=== PATIENT | male | born 1930 | race Caucasian/White ===

== ENCOUNTER 2016-08-05 15:22 | Inpatient (IN) ==
--- NOTE | 2016-08-05 16:51 | Diag Imaging Result Doc PS360 ---
EXAM: CHEST-PORTABLE HISTORY: cough fever TECHNIQUE: Erect AP portable at 1640 COMMENT: There are fibrotic opacities throughout to the right lung and the left base which have not changed significantly in appearance since 02/22/2015. There are sternotomy wires. Some apical pleural fibrosis is present on the left. IMPRESSION: Pulmonary fibrosis. Electronically signed by Fidencio Joseph 08/05/2016 4:49 PM
[2016-08-05 16:53] LABS: BASO% 0.3 % (0.0-0.8); EOS# 0.11 X1000 (0.0-0.7); EOS% 1.1 % (0.0-10.0); HEMOGLOBIN 16.2 g/dL (14.0-18.0); IMM GRAN# 0.02 X1000 (0.0-0.04); IMM GRAN% 0.2 % (0.0-0.5); LYMPH# 0.77 X1000 (1.2-3.4); LYMPH% 7.6 % (20.5-51.1); MANUAL DIFF NEEDED? NO; MCH 29.3 PG (27-31); MCHC 33.1 g/dL (33-37); MCV 88.8 FL (81-99); MONO# 0.36 X1000 (0.11-0.59); MONO% 3.5 % (1.7-9.3); MPV 9.6 FL (7.4-10.4); NEUT% 87.3 % (42.2-75.2); PLT 150 X1000 (130-400); RBC 5.52 XMIL (4.7-6.1)
[2016-08-05 16:57] LABS: PTT 37.7 Seconds (22.0-36.0)
[2016-08-05 16:59] LABS: INR 2.26
[2016-08-05] MEDS ORDERED: DUONEB (A & A) INH ONE (17:14)
[2016-08-05] MEDS ORDERED: SOLU-MEDROL IV ONE (17:14)
[2016-08-05 17:15] LABS: AGAP 12; ALBUMIN 4.3 g/dL (3.5-5.0); ALKALINE PHOSPHATASE 96 U/L (32-122); BUN 18 mg/dL (8-22); CALCIUM 9.5 mg/dL (8.8-10.2); CHLORIDE 101 mmol/L (98-107); CK PROFILE 50 U/L (24-204); COSMO 283; GOT 21 U/L (10-34); GPT 14 U/L (10-44); MAGNESIUM 1.8 mg/dL (1.5-2.7); POTASSIUM 4.3 mmol/L (3.5-5.1); SODIUM 141 mmol/L (136-145); TCO2 28 mmol/L (25-35); TOTAL BILIRUBIN 0.82 mg/dL (0.20-1.00); TOTAL PROTEIN 7.1 g/dL (6.3-8.3)
[2016-08-05] MEDS ORDERED: LEVAQUIN 750 MG/D5W 750 MG/150 ML IVPB IV ONE (17:59)
[2016-08-05] MEDS ORDERED: TYLENOL PO ONE (18:21)
[2016-08-05] MEDS ORDERED: NS 1,000 ML IV ONE (18:21)
--- NOTE | 2016-08-05 18:28 | PROVIDER DOCUMENTATION ---
This chart was entered by Axel Holliday Scribe, acting as scribe for Jennifer Echeverria MD. HPI-General Adult - General Chief Complaint: Shortness of Breath Stated Complaint: SOB 2hrs w/fever Time Seen by Provider: 08/05/16 16:17 Source: patient, family Allergies/Adverse Reactions: Patient Allergies Allergy/AdvReac Type Severity Reaction Status Date / Time No Known Allergies Allergy Verified 08/05/16 16:34 Home Medications: Home Medication List Medication Instructions Recorded Confirmed Last Taken Type Albuterol Sulfate [Proventil Hfa] 6.7 gm IH DIRECTED PRN PRN 01/19/1308/05/16 History Buspirone [Buspar] 10 mg PO TID 01/19/13 08/05/16 08/05/16 History Gabapentin [Neurontin] 400 mg PO BID 01/19/13 08/05/16 08/05/16 History Ropinirole HCl 4 mg PO HS 01/19/13 08/05/16 08/04/16 History Budesonide/Formoterol Inhaler 2 puff INH RTBID 08/27/13 08/05/16 08/05/16 History [Symbicort 160/4.5 Microgm Inhaler] Lorazepam [Ativan] 0.5 mg PO HS 11/26/14 08/05/16 08/05/16 History Montelukast [Singulair] 10 mg PO QHS 11/26/14 08/05/16 08/04/16 History Rosuvastatin Calcium [Crestor] 20 mg PO QAM 11/26/14 08/05/16 08/05/16 History Calcium Carbonate [Tums Calcium 500 mg PO BID 01/21/15 08/05/16 08/05/16 History For Life] Cholecalciferol (Vitamin D3) 1,000 units PO BID 01/21/15 08/05/16 08/05/16 History [Vitamin D3] Albuterol [Albuterol Neb] 2.5 mg INH [id number] 02/07/15 08/05/16 08/05/16 History Omeprazole 20 mg PO BID 02/07/15 08/05/16 08/05/16 History Warfarin [Coumadin] 2 mg PO DIRECTED 02/07/15 08/05/16 08/05/16 History - History of Present Illness -Gen Adult Nature of Presenting Problems: 86 yo M presents to the ER with complaints of fever and chills x a few hours. PT has had a productive cough x 1 week and is also SOB. Quality of Pain: reports: none Severity: reports: mild Onset/Duration: reports: 2 days ago Timing: reports: still present Associated Symptoms: reports: cough, fever/chills, shortness of breath Review of Systems - Adult - REVIEW OF SYSTEMS - ADULT Constitutional: reports: chills, fever Cardiovascular: denies: chest pain, palpitations Respiratory: reports: cough, shortness of breath Gastrointestinal: denies: abdominal pain, nausea, vomiting Musculoskeletal: denies: back pain, neck pain Past History - Adult - PAST MEDICAL HISTORY-ADULT Review of Records: reports: Old Records Reviewed, Nursing Assessment Review, Medications Reviewed, Social history reviewed & non-contributory. Major Childhood Illnesses: reports: denies history Cardiovascular: reports: CAD, HTN, heart valve problem, hyperlipidemia, [place] ( with aortic aneurysm) Respiratory: reports: COPD Gastrointestinal: reports: GERD, other (rectal mass (no surgery til aneurysm repair); C-DIFF) Obstetrical/Gynecological: reports: denies history Genitourinary: reports: denies history Musculoskeletal: reports: denies history Neurological: reports: denies history Psychiatric: reports: anxiety Endocrine/Immune: reports: denies history Other Conditions: reports: denies history - PRIOR SURGERIES/PROCEDURES Surgical/Procedure History: reports: recent surgery, bowel surgery, other ( cataract removal, mechanical valve placement, partial removal of rectal mass, colon) - PRIOR HOSPITALIZATIONS Prior Hospitalizations: reports: for other non-related - IMMUNIZATION STATUS Childhood Immunizations: See Nurse Assessment Flu Vaccine: See Nurse Assessment - FAMILY HISTORY Family History: reviewed, not pertinent Physical Exam-General - PHYSICAL EXAM-ADULT Initial Vital Signs Reviewed: Yes - CONSTITUTIONAL General Appearance: appears well, alert, no apparent distress - RESPIRATORY Respiratory: chest non-tender, normal breath sounds, wheezing - CARDIOVASCULAR Cardiovascular: normal peripheral pulses, tachycardia - GASTROINTESTINAL (ABDOMEN) Abdominal Exam: normal bowel sounds, non tender, soft - MUSCULOSKELETAL Extremity: normal range of motion, non-tender, normal gait - SKIN Integumentary: normal color, normal turgor, warm/dry Progress - PLAN OF CARE/RESULTS Progress/Plan/Lab Results: Vital Signs - 8 hr 08/05/16 16:15 Temperature 102.3 F H Pulse Rate 105 H Respiratory Rate 22 O2 Sat by Pulse Oximetry 95 Orders Category Date Time Status Cardiac Monitoring DIRECTED Care 08/05/16 16:30 Active Saline Loc NOW Care 08/05/16 16:30 Active CHEST-2 VIEWS [RAD] Stat Exams 08/05/16 16:30 Ordered CBC WITH ELECTRONIC DIFF [HEME] Stat Lab 08/05/16 16:34 Ordered CK PROFILE [SP CHEM] Stat Lab 08/05/16 16:34 Ordered COMPREHENSIVE METABOLIC PANEL [CHEM] Stat Lab 08/05/16 16:34 Ordered MAGNESIUM [CHEM] Stat Lab 08/05/16 16:34 Ordered PRO B-NATRIURETIC PEPTIDE Stat Lab 08/05/16 16:34 Ordered PROTIME WITH INR [COAG] Stat Lab 08/05/16 16:34 Ordered PTT [COAG] Stat Lab 08/05/16 16:34 Ordered TROPONIN T Stat Lab 08/05/16 16:34 Ordered EKG [EKG] Stat Ther 08/05/16 16:30 Ordered Result Diagrams: 08/05/16 16:18 08/05/16 16:18 - XRAY 1 XRAY Study: Chest Impression: See EMR Report - CONSULTS/PCP/HOSPITALIST Notification #1 *Consult/PCP/Hospitalist*: DR Rivers Time Discussed: 18:22 Consult Disposition: Admit Departure - Departure Date of Disposition Decision: 08/05/16 Time of Disposition Decision: 18:22 DIAGNOSIS: Hypoxia, Pulmonary fibrosis Pneumonia Qualifiers: Pneumonia type: due to unspecified organism Laterality: unspecified laterality Lung location: unspecified part of lung Qualified Code(s): J18.9 - Pneumonia, unspecified organism Disposition: ADMITTED INPATIENT 09 Certified Medical Emergency: Emergent Condition: Fair Referrals and Follow-Ups: None,PCP [Primary Care Provider] - - Critical Care Note This patient required my direct & personal management of CC.: No Comments: A 86 y/o M who presented with SIRS positive CXR did not show acute PNA but clinically he had cough fever hypoxia, started him on ABX and needs further evlaution with CT chest This chart was documented by the indicated scribe, (Axel Holliday Scribe) and accurately reflects the services I performed and decisions made by me, Jennifer Echeverria MD, as attested by the provider's signature.
[2016-08-05 19:24] LABS: URINE MICRO REVIEW NEEDED? NO; URINE SOURCE VOIDED
[2016-08-05 19:26] LABS: BILIRUBIN URINE NEGATIVE (NEGATIVE); BLOOD URINE TRACE (NEGATIVE); COLOR YELLOW; GLUCOSE URINE NEGATIVE (NEGATIVE); LEUKOCYTES URINE SMALL (NEGATIVE); NITRITE URINE NEGATIVE (NEGATIVE); PH URINE 5.5; PROTEIN URINE NEGATIVE (NEGATIVE); SP GRAVITY URINE 1.015; TURBIDITY URINE CLEAR (CLEAR); UR EPITHELIAL CELLS <10 /HPF (<10); URINE BACTERIA 4+ /HPF; URINE RBC <10 /HPF (<10); UROBILINOGEN URINE NORMAL (NORMAL)
[2016-08-05] MEDS ORDERED: TUMS EXTRA STRENGTH PO SCH (21:12)
[2016-08-05] MEDS ORDERED: VENTOLIN HFA INH PRN (21:12)
--- NOTE | 2016-08-05 21:27 | HISTORY AND PHYSICAL ---
PRIMARY CARE PROVIDER: [facility]. CHIEF COMPLAINT: Cough and chills. HISTORY OF PRESENT ILLNESS: Mr. Soni is an 86-year-old male. He is very pleasant and is alert and oriented x4 during interview. He states that his niece called the ambulance today related to him having a high fever. More specifically he just said "I was freezing to ." However on arrival to the emergency room, he was noted to have a temperature of a 103.1 degrees. A chest x-ray was obtained. The patient appears to have fibrotic lung disease. He was a chronic smoker for many years. I believe he quit smoking in 2011. He was a heavy alcohol drinker until 2011 drinking 1 to 2/5 of alcohol he noted daily. On the right lower lobe there was an area of concern for a fairly dense looking consolidation that was questionable for a possible aspiration type pneumonia. The patient also has had aortic valve replacement and takes Coumadin for chronic anticoagulation. His INR was noted as being 2.26 so he is therapeutic. Other laboratory data was grossly normal in the ER. We did note that the patient was leukocyte esterase positive with 4+ bacteria in his urine so he has a questionable urinary tract infection which could be the source of infection causing him to have a febrile illness. At any rate, the patient's oxygen saturation in the emergency room remains around 91% on 2 L nasal cannula. He will be admitted to the medical floor for further evaluation and treatment. PAST MEDICAL HISTORY: 1. Abdominal aortic aneurysm with subsequent repair. 2. Coronary artery disease status post aortic valve replacement. 3. Hypertension with no current treatment. 4. Hyperlipidemia. 5. COPD. The patient was a heavy smoker until 2011 when he quit. 6. Colon cancer with subsequent colectomy and chronic ostomy. 7. GERD. 8. C. difficile. 9. Anxiety. PREVIOUS SURGICAL HISTORY: 1. Mechanical aortic valve replacement. 2. Abdominal aortic aneurysm repair. 3. Rectal cancer resection with complete colectomy and colostomy placement. 4. Cataract surgery. FAMILY HISTORY: Mother had stomach cancer. Otherwise the patient stated that he could not remember his mother or father that well. SOCIAL HISTORY: The patient lives alone. He quit smoking cigarettes in 2011. He also stopped drinking alcohol in 2011. He was both a heavy smoker for roughly 68 years and used alcohol fairly heavily after he retired from the . He denies illicit drug use or abuse. ALLERGIES: No known drug allergies. HOME MEDICATIONS: 1. BuSpar 10 mg p.o. t.i.d. 2. Proventil 6.7 g inhalation p.r.n. 3. Ropinirole 4 mg p.o. at bedtime. 4. Neurontin 400 mg p.o. b.i.d. 5. Symbicort 160/4.5 two puff inhalation b.i.d. 6. Crestor 20 mg p.o. daily. 7. Singular 10 mg p.o. at bedtime. 8. Lorazepam 0.5 mg p.o. at bedtime. 9. Calcium carbonate 500 mg p.o. b.i.d. 10. Vitamin D3 1000 units p.o. b.i.d. 11. Albuterol 2.5 mg inhalation 4 times a day. 12. Omeprazole 20 mg p.o. b.i.d. 13. Warfarin 2 mg p.o. at bedtime. REVIEW OF SYSTEMS: A 14 point review of systems conducted with the patient. Pertinent positives listed above in the HPI. All other systems were reviewed and found to be negative. PHYSICAL EXAMINATION: VITAL SIGNS: Temperature 103.1 degrees, pulse 112, respirations 30, blood pressure 140/69, oxygen saturation 91% on 2-3 L nasal cannula. GENERAL: Very pleasant 86-year-old male appears chronically ill lying in the ER stretcher in no acute distress. Answers all questions appropriately. HEENT: Head is atraumatic, normocephalic. Pupils are equal, round, reactive to light. Extraocular eye movement intact. Sclerae is anicteric. Conjunctivae is pink. Hearing aids noted in patient's ears bilaterally. Oral mucosa was dry and tacky. NECK: Was supple. No JVD. No hepatojugular reflex noted. No carotid bruit. Trachea was midline. CARDIAC: S1-S2 appreciated, 2/6 systolic ejection murmur noted heard at the aorta. Patient had valve replacement. No gallops, no rubs. Regular rhythm. Sinus tachycardia noted on monitor. LUNGS: Decreased bilaterally. Symmetrical rise and fall with respiration. No rhonchi, no rales. No crepitations. CHEST: Midline scar noted from old aortic valve replacement. ABDOMEN: Soft, nondistended, nontender. Bowel sounds present in all 4 quadrants. Normoactive. No pulsatile mass. No organomegaly. Left sided ostomy noted. Stoma showed no signs of infection. No erythema or overt signs of infection. EXTREMITIES: No clubbing, cyanosis, or edema. Left lower extremity warm to touch. Right lower extremity mildly cool to touch. Bilateral color change noted likely related to venous stasis, 1+ pedal pulse bilaterally. Left great toe noted to have previous ingrown toenail which was removed and appears to be healing. NEUROLOGICAL: Patient is alert and oriented x3. Cranial nerves 2-12 appear to be grossly intact. PSYCHOLOGICAL: Somewhat flat aspect however patient is very pleasant. This likely could be related to acute illness. DIAGNOSTIC DATA: Chest x-ray shows what appears to be fibrotic lung disease throughout the lung gomes. A questionable right lower lobe infiltrate. LABORATORY DATA: CBC within normal limits. PT 25.0, INR 2.26, PTT 37.7. Chemistry panel within normal limits. ProBNP 660. Urine. Leukocyte esterase positive, 10-20 WBCs and 4+ bacteria. ASSESSMENT AND PLAN: 1. Possible right lower lobe pneumonia with fever. Patient has a history of gastroesophageal reflux disease, was a heavy drinker for so many years. Will treat for possible aspiration pneumonia at this time and cover with Zosyn 3.375 IV q.6 hours. He did receive a dose of Levaquin 750 IV in the emergency room. Tylenol 1 g IV q.6 hours not to exceed 4 g daily for fever. 2. Chronic obstructive pulmonary disease without exacerbation. We will continue patient's long- acting bronchodilators. Will give DuoNeb q.6 hours. The patient did not have wheezing. Will not cover with systemic steroids at this time. He did receive a dose of Solu-Medrol 125 mg IV 1 time in the emergency room. 3. Questionable urinary tract infection. The patient was leukocyte esterase positive with 4+ bacteria. This will be covered with the Zosyn. 4. Hyperlipidemia. Continue statin. Check lipid profile. 5. Hypertension. The patient is normotensive at this time with a systolic blood pressure around 140. His baseline goal is unknown. He is not on oral antihypertensives at home. Will not start antihypertensive agents at this time but will monitor his blood pressure closely. 6. Gastroesophageal reflux disease. Will continue Protonix 20 mg b.i.d.. 7. Chronic diastolic heart failure aware. Will give gentle fluid hydration at 85 mL an hour. 8. Anxiety. Continue BuSpar and Ativan. 9. Chronic anticoagulation secondary to mechanical aortic valve. Continue patient's Coumadin, INR daily. Order has been placed for nursing to please evaluate INR before giving the dose of Coumadin at 1600. Further recommendations per patient's clinical course. Dictated by MANUEL Parisi for Jay Lemon MD cc: MANUEL Parisi MD [facility]
[2016-08-05 21:39] LABS: HDL 41 mg/dL (35-55); LDL 81 mg/dL; TRIGLYCERIDES 100 mg/dL (39-160); VLDL 20 mg/dL
[2016-08-05] MEDS: DUONEB (A & A) INH SCH (22:00)
[2016-08-05] MEDS: ZOSYN 3.375 GM/NS 3.375 GM/50 ML IVPB IV SCH (23:02)
[2016-08-05] MEDS: NS 1,000 ML IV SCH (23:03)
[2016-08-05] MEDS: ATIVAN PO SCH (23:06)
[2016-08-05] MEDS: PRILOSEC PO SCH (23:07)
[2016-08-05 23:37] LABS: URINE MICRO REVIEW NEEDED? NO; URINE SOURCE CATH
[2016-08-05 23:40] LABS: BILIRUBIN URINE NEGATIVE (NEGATIVE); BLOOD URINE SMALL (NEGATIVE); COLOR YELLOW; GLUCOSE URINE 70 mg/dL (NEGATIVE); LEUKOCYTES URINE MODERATE (NEGATIVE); NITRITE URINE POSITIVE (NEGATIVE); PH URINE 5.5; PROTEIN URINE NEGATIVE (NEGATIVE); TURBIDITY URINE CLEAR (CLEAR); UROBILINOGEN URINE NORMAL (NORMAL)
[2016-08-05] MEDS: NEURONTIN PO SCH (23:40)
[2016-08-05 23:41] LABS: UR EPITHELIAL CELLS <10 /HPF (<10); URINE BACTERIA 2+ /HPF; URINE CULTURE NEEDED? YES; URINE RBC <10 /HPF (<10)
[2016-08-05] MEDS: REQUIP PO SCH (23:41)
[2016-08-05] MEDS: SINGULAIR PO SCH (23:42)
[2016-08-05] MEDS: VITAMIN D PO SCH (23:43)
[2016-08-06] MEDS: ZOSYN 3.375 GM/NS 3.375 GM/50 ML IVPB IV SCH ×4 (03:40→20:44)
[2016-08-06 06:07] LABS: BASO% 0.1 % (0.0-0.8); HEMATOCRIT 45.1 % (42.0-52.0); HEMOGLOBIN 14.7 g/dL (14.0-18.0); IMM GRAN# 0.03 X1000 (0.0-0.04); IMM GRAN% 0.2 % (0.0-0.5); LYMPH# 0.79 X1000 (1.2-3.4); LYMPH% 5.2 % (20.5-51.1); MANUAL DIFF NEEDED? YES; MCH 29.1 PG (27-31); MCHC 32.6 g/dL (33-37); MCV 89.1 FL (81-99); MONO# 0.17 X1000 (0.11-0.59); MONO% 1.1 % (1.7-9.3); MPV 9.6 FL (7.4-10.4); NEUT% 93.4 % (42.2-75.2); PLT 160 X1000 (130-400); RBC 5.06 XMIL (4.7-6.1)
[2016-08-06 06:08] LABS: INR 2.17; PROTIME 23.9 Seconds (9.2-11.7)
[2016-08-06 06:23] LABS: AGAP 12; BUN 20 mg/dL (8-22); CALCIUM 8.6 mg/dL (8.8-10.2); CHLORIDE 103 mmol/L (98-107); COSMO 284; POTASSIUM 4.2 mmol/L (3.5-5.1); SODIUM 139 mmol/L (136-145); TCO2 24 mmol/L (25-35)
[2016-08-06 07:06] LABS: LYMPHS 5 % (21-51); MONO 3 % (1-9)
[2016-08-06] MEDS ORDERED: ROCEPHIN 1 GM/NS 1 GM/50 ML IVPB IV SCH (07:30)
[2016-08-06] MEDS: NS 1,000 ML IV SCH ×3 (09:56→20:48)
[2016-08-06] MEDS: NEURONTIN PO SCH ×2 (10:01→20:47)
[2016-08-06] MEDS: BUSPAR PO SCH ×3 (10:01→20:48)
[2016-08-06] MEDS: CRESTOR PO SCH (10:01)
[2016-08-06] MEDS: PRILOSEC PO SCH ×2 (10:02→20:47)
[2016-08-06] MEDS: TUMS PO SCH ×2 (10:05→20:47)
[2016-08-06] MEDS: VITAMIN D PO SCH ×2 (10:10→20:48)
[2016-08-06] MEDS ORDERED: VANCOMYCIN IV PER PHARMACY MISC SCH (12:00)
[2016-08-06] MEDS: DUONEB (A & A) INH SCH (13:35)
[2016-08-06] MEDS ORDERED: VANCOMYCIN 2 GM in NS 500 ML IV ONE (14:00)
[2016-08-06] MEDS: MAXIPIME 1 GM/NS 1 GM/50 ML IVPB IV SCH (14:58)
[2016-08-06] MEDS ORDERED: COUMADIN PO SCH ×2 (16:00)
--- NOTE | 2016-08-06 16:17 | PROGRESS NOTE ---
DATE: 08/06/2016 SUBJECTIVE: The patient is resting comfortably in bed. He states that he still does not feel well. He has a dry hacking cough. OBJECTIVE: Vital Signs: Temperature 98 degrees, blood pressure 157/66, heart rate 89, respirations 20, O2 saturation is 100% on 3 L nasal cannula. General: This is an elderly male, lying in bed, in no acute distress. Head: Normocephalic, atraumatic. Heart: S1, S2. Normal. Regular rate and rhythm. Lungs: Equal air entry bilaterally. No crackles. No rales. Abdomen: Positive bowel sounds. Soft, nontender, nondistended. Extremities: No edema. No cyanosis. Neurologic: The patient is alert and oriented x3. LABS: White blood cell count 15, hemoglobin 14, hematocrit 45, platelets 160,000. INR 2.1. Sodium 139, potassium 4.2, chloride 103, CO2 24, BUN 20, creatinine 1.1, glucose 172. ASSESSMENT AND PLAN: 1. Pneumonia. Will continue on IV antibiotic therapy. A sputum Gram stain and culture has been obtained. We will follow up on those results. Continue with bronchodilator therapy and incentive spirometry. 2. Bacteremia. One of 2 bottles are positive for gram-positive cocci. The patient is currently on vancomycin. 3. Leukocytosis. Continue on IV antibiotic therapy. 4. Mechanical aortic valve replacement. The patient's INR is not quite therapeutic. We will start the patient on Lovenox and continue on Coumadin as well. The goal INR is between 2.5 and 3.5. 5. Chronic obstructive pulmonary disease. Continue with bronchodilator therapy and supplemental oxygen. 6. Gastroesophageal reflux disease. Continue on Prilosec. 7. Anxiety disorder. Continue on Ativan at bedtime. cc: Jeanette Rivers MD
[2016-08-06] MEDS: TYLENOL PO PRN (18:27)
[2016-08-06] MEDS: LOVENOX SUBQ SCH (20:47)
[2016-08-06] MEDS: ATIVAN PO SCH (20:47)
[2016-08-06] MEDS: COLACE PO SCH (20:47)
[2016-08-06] MEDS: COUMADIN PO SCH (20:47)
[2016-08-06] MEDS: REQUIP PO SCH (20:47)
[2016-08-06] MEDS: SINGULAIR PO SCH (20:48)
[2016-08-07] MEDS: ZOSYN 3.375 GM/NS 3.375 GM/50 ML IVPB IV SCH ×4 (02:25→21:13)
[2016-08-07] MEDS: MAXIPIME 1 GM/NS 1 GM/50 ML IVPB IV SCH ×2 (03:05→13:15)
[2016-08-07] MEDS: NS 1,000 ML IV SCH ×2 (06:12→10:13)
[2016-08-07 07:14] LABS: INR 2.27; PROTIME 25.1 Seconds (9.2-11.7)
[2016-08-07 07:20] LABS: BASO% 0.1 % (0.0-0.8); EOS# 0.04 X1000 (0.0-0.7); EOS% 0.3 % (0.0-10.0); HEMOGLOBIN 13.6 g/dL (14.0-18.0); IMM GRAN# 0.05 X1000 (0.0-0.04); IMM GRAN% 0.4 % (0.0-0.5); LYMPH% 9.8 % (20.5-51.1); MANUAL DIFF NEEDED? YES; MCH 29.5 PG (27-31); MCHC 32.4 g/dL (33-37); MCV 91.1 FL (81-99); MONO# 0.48 X1000 (0.11-0.59); MONO% 3.9 % (1.7-9.3); MPV 9.9 FL (7.4-10.4); NEUT% 85.5 % (42.2-75.2); PLT 151 X1000 (130-400); RBC 4.61 XMIL (4.7-6.1)
[2016-08-07 07:34] LABS: CALCIUM 8.3 mg/dL (8.8-10.2); POTASSIUM 4.6 mmol/L (3.5-5.1)
[2016-08-07 07:51] LABS: LYMPHS 4 % (21-51); MONO 4 % (1-9)
[2016-08-07 07:56] LABS: HEMOGLOBIN A1C 5.1 % (4.8-6.0)
[2016-08-07] MEDS: TUMS PO SCH ×2 (10:13→21:15)
[2016-08-07] MEDS: BUSPAR PO SCH ×3 (10:13→17:34)
[2016-08-07] MEDS: NEURONTIN PO SCH ×2 (10:13→21:14)
[2016-08-07] MEDS: COLACE PO SCH ×2 (10:14→21:14)
[2016-08-07] MEDS: MIRALAX PO SCH (10:14)
[2016-08-07] MEDS: VITAMIN D PO SCH ×2 (10:14→21:14)
[2016-08-07] MEDS: CRESTOR PO SCH (10:14)
[2016-08-07] MEDS: PRILOSEC PO SCH ×2 (10:14→21:14)
[2016-08-07] MEDS: LOVENOX SUBQ SCH ×2 (10:14→21:15)
[2016-08-07] MEDS: FLONASE NAS SCH (14:54)
[2016-08-07] MEDS ORDERED: APRESOLINE IV PRN (15:01)
--- NOTE | 2016-08-07 17:19 | PROGRESS NOTE ---
DATE: 08/07/2016 SUBJECTIVE: The patient is sitting up in a chair eating lunch. He states that he feels a lot better today. He states that his coughing spells have decreased. OBJECTIVE: Vital Signs: Temperature 97.5 degrees, blood pressure 189/57, heart rate 63, respirations 19, O2 saturations 100% on 3 L nasal cannula. General: This is an elderly male, sitting up in a chair, in no acute distress. Head: Normocephalic, atraumatic. Heart: S1, S2. Normal. Regular rate and rhythm. Lungs: Equal air entry bilaterally. No crackles. No rales. Abdomen: Positive bowel sounds. Soft, nontender, nondistended. Extremities: No edema. No cyanosis. No calf tenderness. Neurologic: The patient is alert and oriented x3. No focal neurologic deficits noted. LABS: White blood cell count 12, hemoglobin 13, hematocrit 42, platelets 151,000, INR 2.2. Sodium 147, potassium 4.6, chloride 110, CO2 27, BUN 24, creatinine 1.2, glucose 108. ASSESSMENT AND PLAN: 1. Pneumonia. The patient appears to be improving from a respiratory standpoint. Continue on the current IV antibiotic regimen plus bronchodilator therapy and incentive spirometry. 2. Urinary tract infection. Continue on the current IV antibiotic regimen. The urine culture is growing gram-negative rods. 3. Bacteremia. One bottle out of the 2 bottles is growing coagulase-negative Staphylococcus. This most likely represents contaminant. We will follow the blood cultures closely. Continue on antibiotic therapy. 4. Hypertension. We will adjust the patient's antihypertensive medications. 5. Chronic obstructive pulmonary disease. Stable. Continue on bronchodilator therapy plus oxygen. 6. Mechanical aortic valve replacement. Continue on Lovenox plus Coumadin. The patient's INR today is 2.2. 7. Continue with physical therapy. cc: Jeanette Rivers MD
[2016-08-07] MEDS: VANCOMYCIN 1.5 GM in NS 250 ML IV SCH (17:34)
[2016-08-07] MEDS: COUMADIN PO SCH (21:14)
[2016-08-07] MEDS: REQUIP PO SCH (21:14)
[2016-08-07] MEDS: SINGULAIR PO SCH (21:14)
[2016-08-07] MEDS: NORVASC PO SCH (21:14)
[2016-08-07] MEDS: ATIVAN PO SCH (21:15)
[2016-08-07] MEDS: DULCOLAX PR SCH ×3 (21:16→21:27)
[2016-08-07] MEDS ORDERED: NORCO-5 PO PRN (23:16)
[2016-08-08] MEDS: MAXIPIME 1 GM/NS 1 GM/50 ML IVPB IV SCH ×2 (02:00→13:34)
[2016-08-08] MEDS: ZOSYN 3.375 GM/NS 3.375 GM/50 ML IVPB IV SCH ×4 (03:22→20:40)
[2016-08-08 06:29] LABS: MANUAL DIFF NEEDED? NO
[2016-08-08 06:58] LABS: BASO% 0.6 % (0.0-0.8); EOS# 0.34 X1000 (0.0-0.7); EOS% 4.4 % (0.0-10.0); HEMOGLOBIN 13.8 g/dL (14.0-18.0); IMM GRAN# 0.03 X1000 (0.0-0.04); IMM GRAN% 0.4 % (0.0-0.5); LYMPH# 1.43 X1000 (1.2-3.4); LYMPH% 18.6 % (20.5-51.1); MCH 29.2 PG (27-31); MCHC 32.1 g/dL (33-37); MCV 90.9 FL (81-99); MONO% 6.5 % (1.7-9.3); MPV 9.5 FL (7.4-10.4); NEUT% 69.5 % (42.2-75.2); PLT 150 X1000 (130-400); RBC 4.73 XMIL (4.7-6.1)
[2016-08-08 07:00] LABS: CALCIUM 8.2 mg/dL (8.8-10.2); POTASSIUM 4.6 mmol/L (3.5-5.1)
[2016-08-08 08:00] LABS: INR 2.18; PROTIME 24.1 Seconds (9.2-11.7)
[2016-08-08] MEDS: BUSPAR PO SCH ×3 (09:28→17:42)
[2016-08-08] MEDS: PRILOSEC PO SCH ×2 (09:28→20:39)
[2016-08-08] MEDS: COLACE PO SCH (09:28)
[2016-08-08] MEDS: FLONASE NAS SCH (09:28)
[2016-08-08] MEDS: CRESTOR PO SCH (09:28)
[2016-08-08] MEDS: NORVASC PO SCH ×2 (09:28→20:40)
[2016-08-08] MEDS: NEURONTIN PO SCH ×2 (09:28→20:39)
[2016-08-08] MEDS: VITAMIN D PO SCH ×2 (09:28→20:40)
[2016-08-08] MEDS: LOVENOX SUBQ SCH ×2 (09:28→20:40)
[2016-08-08] MEDS: MIRALAX PO SCH (09:29)
[2016-08-08] MEDS: TUMS PO SCH ×2 (09:29→20:39)
[2016-08-08] MEDS: DUONEB (A & A) INH SCH ×3 (11:49→19:39)
[2016-08-08] MEDS: SYMBICORT 160/4.5 MICROGM INHALER INH SCH ×2 (11:50→19:38)
[2016-08-08] MEDS ORDERED: D5 1/2 NS 1,000 ML IV SCH (15:05)
--- NOTE | 2016-08-08 15:24 | PROGRESS NOTE ---
DATE: 08/08/2016 SUBJECTIVE: The patient is resting comfortably in bed. He has no complaints. He states that he would like to go home. OBJECTIVE: Vital Signs: Temperature 97.5 degrees, blood pressure 124/56, heart rate 77, respirations 19, O2 saturation 100% on 2 L nasal cannula. General: This is an elderly male sitting in a chair in no acute distress. Head: Normocephalic, atraumatic. Heart: S1, S2. Normal. Lungs: Equal air entry bilaterally. No crackles, no rales. Abdomen: Positive bowel sounds. Soft, nontender, nondistended. Extremities: No edema. No cyanosis. No calf tenderness. Neuro: The patient is alert and oriented x3. LABS: INR 2.1. White blood cell count 7.7, hemoglobin 13.8, hematocrit 43, platelets 150,000. Sodium 146, potassium 4.6, chloride 111, CO2 28, BUN 18, creatinine 1.3. ASSESSMENT AND PLAN: 1. Pneumonia. Continue on intravenous antibiotic therapy. 2. Hypernatremia. Will start the patient on D 5 half-normal saline. 3. Acute kidney injury. Intravenous fluids will be started today. We will monitor the patient's urine output closely. 4. Urinary tract infection secondary to Escherichia coli. Continue on intravenous antibiotic therapy. 5. Mechanical aortic valve replacement. Continue on Lovenox. 6. Hypertension. Improved. Continue on the current antihypertensive therapy. 7. Chronic obstructive pulmonary disease. Stable. Continue on bronchodilator therapy. 8. Continue with physical therapy. cc: Jeanette Rivers MD
[2016-08-08] MEDS: VANCOMYCIN 1.5 GM in NS 250 ML IV SCH (16:26)
[2016-08-08] MEDS: TESSALON PO PRN (17:42)
[2016-08-08] MEDS: COUMADIN PO SCH (20:40)
[2016-08-08] MEDS: ATIVAN PO SCH (20:40)
[2016-08-08] MEDS: SINGULAIR PO SCH (20:40)
[2016-08-08] MEDS: REQUIP PO SCH (20:49)
[2016-08-09] MEDS: MAXIPIME 1 GM/NS 1 GM/50 ML IVPB IV SCH ×2 (01:53→13:15)
[2016-08-09] MEDS: ZOSYN 3.375 GM/NS 3.375 GM/50 ML IVPB IV SCH ×4 (02:50→20:30)
[2016-08-09] MEDS: DUONEB (A & A) INH SCH ×4 (03:49→22:58)
[2016-08-09 07:02] LABS: MANUAL DIFF NEEDED? NO
[2016-08-09 07:07] LABS: BASO% 0.5 % (0.0-0.8); EOS# 0.29 X1000 (0.0-0.7); EOS% 4.5 % (0.0-10.0); HEMATOCRIT 43.8 % (42.0-52.0); HEMOGLOBIN 14.2 g/dL (14.0-18.0); IMM GRAN# 0.02 X1000 (0.0-0.04); IMM GRAN% 0.3 % (0.0-0.5); LYMPH# 1.08 X1000 (1.2-3.4); LYMPH% 16.7 % (20.5-51.1); MCH 28.9 PG (27-31); MCHC 32.4 g/dL (33-37); MCV 89.2 FL (81-99); MONO# 0.36 X1000 (0.11-0.59); MONO% 5.6 % (1.7-9.3); MPV 9.4 FL (7.4-10.4); NEUT% 72.4 % (42.2-75.2); PLT 166 X1000 (130-400); RBC 4.91 XMIL (4.7-6.1)
[2016-08-09 07:17] LABS: INR 2.15; PROTIME 23.7 Seconds (9.2-11.7)
[2016-08-09 07:25] LABS: CALCIUM 8.1 mg/dL (8.8-10.2); POTASSIUM 4.1 mmol/L (3.5-5.1)
[2016-08-09] MEDS: LOVENOX SUBQ SCH ×2 (10:12→20:30)
[2016-08-09] MEDS: VITAMIN D PO SCH ×2 (10:13→20:30)
[2016-08-09] MEDS: NORVASC PO SCH ×2 (10:13→20:30)
[2016-08-09] MEDS: TUMS PO SCH ×2 (10:13→20:30)
[2016-08-09] MEDS: PRILOSEC PO SCH ×2 (10:13→20:30)
[2016-08-09] MEDS: BUSPAR PO SCH ×3 (10:13→18:10)
[2016-08-09] MEDS: CRESTOR PO SCH (10:13)
[2016-08-09] MEDS: NEURONTIN PO SCH ×2 (10:13→20:30)
[2016-08-09] MEDS: TESSALON PO PRN (10:25)
[2016-08-09] MEDS: FLONASE NAS SCH (10:26)
[2016-08-09] MEDS: SYMBICORT 160/4.5 MICROGM INHALER INH SCH ×2 (11:22→20:11)
--- NOTE | 2016-08-09 13:54 | Diag Imaging Result Doc PS360 ---
EXAM: CHEST-2 VIEWS INDICATION: pneumonia TECHNIQUE: 2 views COMPARISON: 08/05/2016 FINDINGS: Bilateral fibrotic changes are again noted. These are grossly stable. No new consolidations are appreciated. Cardiac silhouette is stable. IMPRESSION: Stable chest. Electronically signed by Kennedy Huang 08/09/2016 1:51 PM
--- NOTE | 2016-08-09 16:47 | PROGRESS NOTE ---
DATE: 08/09/2016 SUBJECTIVE: The patient is resting comfortably in bed. He states that he feels fine. He was able to get up with physical therapy and walk without any difficulty. OBJECTIVE: Vital signs: Temperature 98, blood pressure 114/56, heart rate 67, respirations 16, O2 saturation 97% on 2 L nasal cannula. General: This is an elderly male lying in bed in no acute distress. Head: Normocephalic, atraumatic. Heart: S1, S2, normal. Lungs: Clear to auscultation bilaterally. No crackles. No rales. Abdomen: Positive bowel sounds. Soft, nontender, nondistended. Extremities: No edema. No cyanosis. No calf tenderness. Neurologic: The patient is alert and oriented x3. LABORATORY DATA: INR 2.1. Sodium 143, potassium 4.1, chloride 107, CO2 of 27, ASSESSMENT AND PLAN: 1. Pneumonia. Improved. Continue on IV antibiotic therapy. 2. Hypernatremia. Resolved. 3. Acute kidney injury. Resolved. 4. Urinary tract infection secondary to Escherichia coli. Continue on antibiotic therapy. 5. Mechanical aortic valve replacement. Continue on Lovenox plus Coumadin. The INR is 2.1. 6. Hypertension. Improved. Continue on the current antihypertensive therapy. 7. Chronic obstructive pulmonary disease. Stable. 8. Continue with physical therapy. 9. Disposition. The patient will require home oxygen. Will make these arrangements on Thursday and will plan to discharge the patient home on Thursday. cc: Jeanette Rivers MD MTDD
[2016-08-09] MEDS: VANCOMYCIN 1.5 GM in NS 250 ML IV SCH (18:09)
[2016-08-09] MEDS: REQUIP PO SCH (20:30)
[2016-08-09] MEDS: SINGULAIR PO SCH (20:30)
[2016-08-09] MEDS: ATIVAN PO SCH (20:30)
[2016-08-09] MEDS: COUMADIN PO SCH (20:30)
[2016-08-10] MEDS: MAXIPIME 1 GM/NS 1 GM/50 ML IVPB IV SCH ×2 (01:04→15:00)
[2016-08-10] MEDS: ZOSYN 3.375 GM/NS 3.375 GM/50 ML IVPB IV SCH ×4 (02:51→21:38)
[2016-08-10] MEDS: DUONEB (A & A) INH SCH ×4 (03:56→22:35)
[2016-08-10 06:54] LABS: MANUAL DIFF NEEDED? NO
[2016-08-10 07:02] LABS: BASO% 0.6 % (0.0-0.8); EOS# 0.36 X1000 (0.0-0.7); EOS% 5.1 % (0.0-10.0); HEMATOCRIT 44.1 % (42.0-52.0); HEMOGLOBIN 14.5 g/dL (14.0-18.0); IMM GRAN# 0.02 X1000 (0.0-0.04); IMM GRAN% 0.3 % (0.0-0.5); LYMPH# 1.04 X1000 (1.2-3.4); LYMPH% 14.6 % (20.5-51.1); MCH 29.4 PG (27-31); MCHC 32.9 g/dL (33-37); MCV 89.3 FL (81-99); MONO# 0.43 X1000 (0.11-0.59); MONO% 6.1 % (1.7-9.3); MPV 9.8 FL (7.4-10.4); NEUT% 73.3 % (42.2-75.2); PLT 169 X1000 (130-400); RBC 4.94 XMIL (4.7-6.1)
[2016-08-10 07:14] LABS: INR 2.94; PROTIME 33.1 Seconds (9.2-11.7)
[2016-08-10 07:40] LABS: CALCIUM 8.6 mg/dL (8.8-10.2); POTASSIUM 4.1 mmol/L (3.5-5.1)
[2016-08-10] MEDS: SYMBICORT 160/4.5 MICROGM INHALER INH SCH ×2 (07:48→19:38)
[2016-08-10] MEDS: FLONASE NAS SCH (09:24)
[2016-08-10] MEDS: TUMS PO SCH ×2 (09:25→21:37)
[2016-08-10] MEDS: VITAMIN D PO SCH ×2 (09:25→21:38)
[2016-08-10] MEDS: NORVASC PO SCH ×2 (09:25→21:37)
[2016-08-10] MEDS: BUSPAR PO SCH ×3 (09:25→21:37)
[2016-08-10] MEDS: PRILOSEC PO SCH ×2 (09:25→21:37)
[2016-08-10] MEDS: CRESTOR PO SCH (09:25)
[2016-08-10] MEDS: LOVENOX SUBQ SCH (09:25)
[2016-08-10] MEDS: NEURONTIN PO SCH ×2 (09:26→21:37)
--- NOTE | 2016-08-10 17:30 | PROGRESS NOTE ---
DATE: 08/10/2016 SUBJECTIVE: The patient is sitting up in a chair. He has no complaints. He states he is ready to go home. OBJECTIVE: Vital Signs: Temperature 97 degrees, blood pressure 138/70, heart rate 73, respirations 20, O2 saturations 98% on 2 L nasal cannula. General: This is an elderly male, lying in bed, in no acute distress. Head: Normocephalic, atraumatic. Heart: S1, S2. Normal. Regular rate and rhythm. Lungs: Clear to auscultation bilaterally. Abdomen: Positive bowel sounds. Soft, nontender, nondistended. Extremities: No edema. No cyanosis. No calf tenderness. Neurologic: The patient is alert and oriented x3. LABS: INR 2.9, potassium 4.1, hemoglobin 14, hematocrit 44, creatinine 1.2. ASSESSMENT AND PLAN: 1. Pneumonia. Improved. Continue on antibiotic therapy. 2. Stage 2 chronic kidney disease. Stable. 3. Urinary tract infection secondary to Escherichia coli. Continue on the current antibiotic regimen. 4. Hypernatremia. Resolved. 5. Mechanical aortic valve replacement. The patient's INR is therapeutic, it is 2.9 today. 6. Hypertension. Improved. Continue on the current antihypertensive regimen. 7. Chronic obstructive pulmonary disease. Stable. 8. Pulmonary fibrosis. Aware. 9. Disposition. The patient will be stable for discharge home tomorrow once his home oxygen has been set up. cc: Jeanette Rivers MD
[2016-08-10] MEDS ORDERED: COUMADIN PO SCH (21:00)
[2016-08-10] MEDS: REQUIP PO SCH (21:37)
[2016-08-10] MEDS: ATIVAN PO SCH (21:37)
[2016-08-10] MEDS: SINGULAIR PO SCH (21:38)
[2016-08-10] MEDS: TYLENOL PO PRN (22:19)
[2016-08-11] MEDS: MAXIPIME 1 GM/NS 1 GM/50 ML IVPB IV SCH (02:06)
[2016-08-11] MEDS: ZOSYN 3.375 GM/NS 3.375 GM/50 ML IVPB IV SCH ×2 (02:39→10:07)
[2016-08-11] MEDS: DUONEB (A & A) INH SCH (03:26)
[2016-08-11 06:55] LABS: INR 3.2; PROTIME 36.2 Seconds (9.2-11.7)
[2016-08-11 07:40] VITALS: BP 170/58
[2016-08-11] MEDS: SYMBICORT 160/4.5 MICROGM INHALER INH SCH (08:36)
[2016-08-11] MEDS: BUSPAR PO SCH (10:06)
[2016-08-11] MEDS: VITAMIN D PO SCH (10:06)
[2016-08-11] MEDS: NEURONTIN PO SCH (10:07)
[2016-08-11] MEDS: PRILOSEC PO SCH (10:07)
[2016-08-11] MEDS: CRESTOR PO SCH (10:07)
[2016-08-11] MEDS: NORVASC PO SCH (10:07)
[2016-08-11] MEDS: TUMS PO SCH (10:07)
[2016-08-11] MEDS: FLONASE NAS SCH (10:41)
--- NOTE | 2016-08-19 11:56 | DISCHARGE SUMMARY ---
ADMISSION DATE: 08/05/2016 DISCHARGE DATE: 08/11/2016 FINAL DISCHARGE DIAGNOSES: 1. Pneumonia. 2. Pulmonary fibrosis. 3. Stage 2 chronic kidney disease. 4. Urinary tract infection secondary to Escherichia coli. 5. Hypernatremia. 6. Mechanical aortic valve replacement, on Coumadin. 7. Hypertension. 8. Chronic obstructive pulmonary disease. HOSPITAL COURSE: Mr. Soni is an 86-year-old male with a history of multiple medical problems, who presented to the ER with shortness of breath and a productive cough. On admission, a chest x- ray was done that revealed pneumonia. The patient was admitted to the hospitalist service and started on broad-spectrum antibiotics after blood cultures and sputum culture were obtained. Due to the patient having a mechanical aortic valve, the patient was treated with Lovenox plus Coumadin until his INR was therapeutic. A chest x-ray was done that did reveal pulmonary fibrosis. Over the course of the hospitalization the patient slowly improved. The patient was also noted to have a urinary tract infection. That ultimately grew out E. coli. The patient continued to improve clinically. His INR was noted to be therapeutic at 3.2 on the day of discharge. Also the patient was ambulated without oxygen and was noted to have an O2 saturation of 87% on room air. Arrangements were made for the patient to have home oxygen delivered to his home. The patient was cleared for discharge home on August 11, 2016. DISCHARGE MEDICATIONS: 1. Norvasc 5 mg p.o. twice a day. 2. Augmentin 875/125 one tablet oral twice a day x5 days. 3. BuSpar 10 mg p.o. 3 times a day. 4. Albuterol p.r.n. 5. Requip 4 mg p.o. at bedtime. 6. Neurontin 400 mg p.o. twice a day. 7. Symbicort 2 puffs inhaled twice a day. 8. Crestor 20 mg p.o. every morning. 9. Singulair 10 mg p.o. at bedtime. 10. Ativan 0.5 mg p.o. at bedtime. 11. Calcium carbonate 500 mg p.o. twice a day. 12. Vitamin D3 1000 units oral twice a day. 13. Omeprazole 20 mg oral twice a day. 14. Warfarin 2 mg p.o. daily. DISCHARGE DIET: Low-sodium diet. ACTIVITY: As tolerated. FOLLOW-UP INSTRUCTIONS: The patient has been advised to follow up with his primary care physician in 1 week. cc: Jeanette Rivers MD
== END 2016-08-11 12:42 | disposition home or self-care (01) ==
LOC: SUPCPDRO → ED 15:22 → SUATTDRO 21:07 → EDIPHOLD 21:07 → 3N 08-06 14:44
PROVIDERS: ATTEND Internal Medicine

== ENCOUNTER 2016-11-23 16:56 | Inpatient (IN) ==
[2016-11-23] MEDS ORDERED: MORPHINE IV ONE ×2 (17:18→19:02)
--- NOTE | 2016-11-23 18:17 | Diag Imaging Result Doc PS360 ---
EXAM: CT HEAD W/O CONTRAST INDICATION: FALL, HEAD INJURY, HIP FX, COUMADIN TECHNIQUE: Dose reduction protocol was used. COMPARISON: 11/29/2014 FINDINGS: There is stable mild brain atrophy and mild patchy low attenuation in the subcortical white matter suggesting microangiopathy, stable. There is no definite acute infarct given the limited sensitivity of CT versus MRI. There is no discrete intracranial mass, mass effect, or intracranial hemorrhage. The surrounding soft tissues and bony structures are essentially unremarkable. IMPRESSION: Stable mild chronic changes but no evidence of acute intracranial pathology. Electronically signed by Kennedy Huang 11/23/2016 6:15 PM
--- NOTE | 2016-11-23 18:18 | PROVIDER DOCUMENTATION ---
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 STS SEVERE PAIN TO RT HIP. STS ALSO HIT HIS HEAD BUT DENIES LOC OR PAIN. HX OF COUMADIN USE. Quality of Pain: reports: sharp Severity in ED: severe Onset/Duration: just prior to arrival Any recent injury?: Yes Locality of Occurance: Home - FALL INJURY Reason for Fall: reports: slipped Symptoms prior to fall:: reports: none Loss of Consciousness: no loss of consciousness Review of Systems - Adult - REVIEW OF SYSTEMS - ADULT Constitutional: reports: no symptoms reported Eyes: reports: no symptoms reported. denies: blurred vision Ears, Nose, Mouth & Throat: reports: no symptoms reported Cardiovascular: reports: no symptoms reported. denies: chest pain Respiratory: reports: no symptoms reported. denies: shortness of breath Gastrointestinal: reports: no symptoms reported. denies: abdominal pain Genitourinary: reports: no symptoms reported Musculoskeletal: reports: see HPI, joint pain Integumentary: reports: no symptoms reported Neurological: reports: no symptoms reported Psychiatric: reports: no symptoms reported Endocrine: reports: no symptoms reported Hematologic/Lymphatic: reports: no symptoms reported Allergic/Immunologic: reports: no symptoms reported All Other Systems: Reviewed and Negative Past History - Adult - PAST MEDICAL HISTORY-ADULT Review of Records: reports: Nursing Assessment Review, Medications Reviewed, Social history reviewed & non-contributory. Major Childhood Illnesses: reports: denies history Cardiovascular: reports: CAD, HTN, heart valve problem, hyperlipidemia, SC ( with aortic aneurysm) Respiratory: reports: COPD Gastrointestinal: reports: GERD, other (rectal mass (no surgery til aneurysm repair); C-DIFF) Genitourinary: reports: denies history Musculoskeletal: reports: denies history Neurological: reports: denies history Psychiatric: reports: anxiety Endocrine/Immune: reports: denies history Other Conditions: reports: denies history - PRIOR SURGERIES/PROCEDURES Surgical/Procedure History: reports: recent surgery, bowel surgery, other ( cataract removal, mechanical valve placement, partial removal of rectal mass, colon) - PRIOR HOSPITALIZATIONS Prior Hospitalizations: reports: for other non-related - IMMUNIZATION STATUS Childhood Immunizations: See Nurse Assessment Flu Vaccine: See Nurse Assessment - FAMILY HISTORY Family History: reviewed, not pertinent Physical Exam-Injury Related - Physical Exam-Injury Related Initial Vital Signs Reviewed: Yes General Appearance: appears well, alert, mild distress Eyes: PERRL/EOMI, pink conjunctivae Head, Ears, Nose, Mouth & Throat: normocephalic/atraumatic, moist mucous membranes, normal ENT inspection Neck: non-tender, full range of motion, supple, normal inspection. negative: C- spine tenderness Respiratory: chest non-tender, lungs clear, normal breath sounds, no pleuratic chest pain, no respiratory distress, no accessory muscle use Cardiovascular: regular rate, rhythm Peripheral Pulses: dorsalis-pedis (R): 3+, dorsalis-pedis (L): 3+ Abdominal Exam: normal bowel sounds, non tender, soft Extremity: normal inspection, normal capillary refill, pelvis stable, tenderness (RT HIP). negative: deformity Integumentary: normal color, warm/dry Neurologic: grossly normal, no motor/sensory deficits Psych/Mental Status: normal mood/affect, oriented x 3 Progress - PLAN OF CARE/RESULTS Progress/Plan/Lab Results: Vital Signs - 8 hr 11/23/16 17:05 11/23/16 19:06 Temperature 98.4 F Pulse Rate 89 100 H Respiratory Rate 20 26 H Blood Pressure 164/68 175/96 O2 Sat by Pulse Oximetry 87 L 88 L Laboratory Results - last 24 hr 11/23/16 11/23/16 18:27 18:27 WBC 8.61 RBC 5.48 Hgb 15.8 Hct 48.0 MCV 87.6 MCH 28.8 MCHC 32.9 L RDW Std Deviation 16.2 H Plt Count 167 MPV 9.7 Immature Gran % (Auto) 0.3 Neut % (Auto) 82.8 H Lymph % (Auto) 12.1 L [place] % (Auto) 3.5 Eos % (Auto) 1.0 Baso % (Auto) 0.3 Immature Gran # (Auto) 0.03 Neut # (Auto) 7.12 H Lymph # (Auto) 1.04 L [place] # (Auto) 0.30 Eos # (Auto) 0.09 Baso # (Auto) 0.03 PT 25.7 H INR 2.32 PTT (Actin FS) 31.1 Orders Category Date Time Status CHEST-1 VIEW [RAD] Stat Exams 11/23/16 17:[address] HEAD W/O CONTRAST [CT] Stat Exams 11/23/16 17:47 Completed XRAY PELVIS W/HIP 2-3VW RT [RAD] Stat Exams 11/23/16 17:26 Completed CBC WITH ELECTRONIC DIFF [HEME] Stat Lab 11/23/16 18:27 Completed COMPREHENSIVE METABOLIC PANEL [CHEM] Stat Lab 11/23/16 18:27 Received PROTIME WITH INR [COAG] Stat Lab 11/23/16 18:27 Completed PTT [COAG] Stat Lab 11/23/16 18:27 Completed Morphine Med 11/23/16 19:00 Discontinued 4 mg .ROUTE .STK-MED ONE Morphine Med 11/23/16 17:18 Discontinued 4 mg IV NOW ONE Morphine Med 11/23/16 19:02 Discontinued 4 mg IV NOW ONE Result Diagrams: 11/23/16 18:27 - XRAY 1 XRAY: Right XRAY Study: Pelvis, Hip Impression: Abnormal, See EMR Report XRAY Interpretation: RT FEMORAL NECK FX.-DR. VILLALOBOS 2 XRAY Study: Chest Impression: Abnormal, See EMR Report XRAY Interpretation: STABLE COPD AND FIBROTIC CHANGES.-DR. VILLALOBOS - CT/MRI 1 CT Study: Head Impression: Normal, See EMR Report CT Results: NO ACUTE FINDINGS.-DR. VILLALOBOS - CONSULTS/PCP/HOSPITALIST Notification #1 *Consult/PCP/Hospitalist*: I spoke with Dr Argueta who ask that he be admitted to Hospitalist and that Time Discussed: 19:20 Reason/Comments: he be kept NPO after MN - CHANGE OF SHIFT REPORT (ED Provider) Report Given and Care Transferred to:: DR. SMITH Time of Transfer: 18:10 Items Pending: Labs Departure - Departure Date of Disposition Decision: 11/23/16 Time of Disposition Decision: 19:21 DIAGNOSIS: Femoral neck fracture Qualifiers: Encounter type: initial encounter Fracture type: closed Laterality: right Qualified Code(s): S72.001A - Fracture of unspecified part of neck of right femur, initial encounter for closed fracture Disposition: ADMITTED INPATIENT 09 Certified Medical Emergency: Emergent Condition: Fair Referrals and Follow-Ups: None,PCP [Primary Care Provider] - - Critical Care Note This patient required my direct & personal management of CC.: No Attestation - Physician/ ALEXIS Attestation Patient care was provided by Advanced Practice Provider:: No The physician spent face to face time with patient:: Yes Advanced Practice Provider documentation review:: Supervising physician onsite and consulted in the evaluation and care of this patient. The physician did have a face to face encounter with the patient.
--- NOTE | 2016-11-23 18:19 | Diag Imaging Result Doc PS360 ---
EXAM: XRAY PELVIS W/HIP 2-3VW RT INDICATION: FALL, DEFORMITY TECHNIQUE: 3 views COMPARISON: None. FINDINGS: The bones are diffusely osteopenic. There is a fracture through the right femoral neck with only minimal displacement. No other definite fracture, dislocation, or intrinsic osseous lesion is appreciated. There is atherosclerotic calcification involving the thigh. IMPRESSION: Fracture of the right femoral neck as described. Electronically signed by Kennedy Huang 11/23/2016 6:17 PM
--- NOTE | 2016-11-23 18:22 | Diag Imaging Result Doc PS360 ---
EXAM: CHEST-1 VIEW INDICATION: HIP FX TECHNIQUE: One view COMPARISON: 08/09/2016 FINDINGS: There are COPD changes that are stable. There is stable interstitial thickening bilaterally suggesting fibrosis. No new consolidations are identified. There is no discrete pleural fluid collection or pneumothorax. There are median sternotomy wires and a prosthetic heart valve there is stable. Cardiac silhouette is unremarkable, otherwise. IMPRESSION: Stable COPD and fibrotic changes as described. Electronically signed by Kennedy Huang 11/23/2016 6:20 PM
[2016-11-23 18:33] LABS: MANUAL DIFF NEEDED? NO
[2016-11-23 18:35] LABS: BASO% 0.3 % (0.0-0.8); EOS# 0.09 X1000 (0.0-0.7); HEMOGLOBIN 15.8 g/dL (14.0-18.0); IMM GRAN# 0.03 X1000 (0.0-0.04); IMM GRAN% 0.3 % (0.0-0.5); LYMPH# 1.04 X1000 (1.2-3.4); LYMPH% 12.1 % (20.5-51.1); MCH 28.8 PG (27-31); MCHC 32.9 g/dL (33-37); MCV 87.6 FL (81-99); MONO% 3.5 % (1.7-9.3); MPV 9.7 FL (7.4-10.4); NEUT% 82.8 % (42.2-75.2); PLT 167 X1000 (130-400); RBC 5.48 XMIL (4.7-6.1)
[2016-11-23 18:50] LABS: PTT 31.1 Seconds (22.0-36.0)
[2016-11-23] MEDS ORDERED: MORPHINE ONE (19:00)
[2016-11-23 19:03] LABS: INR 2.32; PROTIME 25.7 Seconds (9.2-11.7)
[2016-11-23 19:20] LABS: ALBUMIN 4.3 g/dL (3.5-5.0); CALCIUM 9.5 mg/dL (8.8-10.2); POTASSIUM 4.6 mmol/L (3.5-5.1); TOTAL BILIRUBIN 1.18 mg/dL (0.20-1.00); TOTAL PROTEIN 6.8 g/dL (6.3-8.3)
[2016-11-23] MEDS ORDERED: DUONEB (A & A) INH ONE (20:31)
[2016-11-23] MEDS ORDERED: SOLU-MEDROL IV ONE (20:32)
[2016-11-23 20:50] LABS: ALLEN TEST YES; BE -2.2 mmoll (-3.0-3.0); BLOOD TYPE ARTERIAL; DRAW SITE R BRACHIAL; METHB 1.3 % (0.0-1.5); O2(CT) 21.7 mL/dL (15.0-23.0); PCO2(98.6) 41 mmHg (35-45); PO2(98.6) 67 mmHg (60-100); SAMPLE BLOOD; THB 16.1 g/dL (11.5-17.4); pH(98.6) 7.36 (7.35-7.45)
[2016-11-23 20:51] LABS: MODALITY NRB
[2016-11-23 21:06] LABS: URINE MICRO REVIEW NEEDED? NO; URINE SOURCE CATH
[2016-11-23 21:10] LABS: BILIRUBIN URINE NEGATIVE (NEGATIVE); BLOOD URINE TRACE (NEGATIVE); COLOR YELLOW; GLUCOSE URINE NEGATIVE (NEGATIVE); LEUKOCYTES URINE MODERATE (NEGATIVE); NITRITE URINE NEGATIVE (NEGATIVE); PROTEIN URINE TRACE mg/dL (NEGATIVE); SP GRAVITY URINE 1.013; TURBIDITY URINE HAZY (CLEAR); UR EPITHELIAL CELLS <10 /HPF (<10); URINE BACTERIA 4+ /HPF; URINE CULTURE NEEDED? YES; URINE RBC <10 /HPF (<10); UROBILINOGEN URINE NORMAL (NORMAL)
[2016-11-23] MEDS ORDERED: ATIVAN IV ONE (21:41)
--- NOTE | 2016-11-24 00:07 | HISTORY AND PHYSICAL ---
PRIMARY CARE PHYSICIAN: None. CHIEF CONCERN: Right leg pain. HPI: Mr. Soni is an 89-year-old male with past medical history of COPD, aortic aneurysm, coronary artery disease and severe anxiety who comes to the hospital complaining of right leg pain. Patient states that earlier today he was pulling on a rope while trying to fix something on his trailer when the rope broke and he landed on the right side of his body injuring his right leg. The patient did not lose consciousness. The patient had trouble getting up and EMS was called. In the emergency room x-rays were done showing a right femoral neck fracture. Dr. Argueta was called from Orthopedic surgery stating that he will see the patient tomorrow morning. Pain has been controlled with morphine. PAST MEDICAL HISTORY: Significant for. 1. Abdominal aortic aneurysm with subsequent repair. 2. Coronary artery disease status post aortic valve replacement. 3. Hypertension with no current treatment. 4. Hyperlipidemia. 5. COPD on 2 L at home. 6. Benign colon tumor status post colectomy. 7. Anxiety. PAST SURGICAL HISTORY: 1. Mechanical aortic valve replacement in 2001. 2. Abdominal aortic aneurysm repair. 3. Colectomy and colostomy placement. 4. Cataract surgery. ALLERGIES: No known drug allergies. HOME MEDICATIONS: 1. Buspirone 50 mg tablet oral 3 times a day. 2. Gabapentin 400 mg capsule oral twice a day. 3. Symbicort 160/4.5 mcg 2 puffs by inhalation twice a day. 4. Montelukast 10 mg p.o. once a day. 5. Lorazepam 0.5 mg tablet 1 mg oral once a night. 6. Tums 300 mg tablet b.i.d. 7. Cholecalciferol 1000 units p.o. twice a day. 8. Amlodipine 5 mg tablet twice a day. 9. Amoxicillin with clavulanic acid 1 tablet twice a day. 10. Spiriva 1 puff by inhalation daily. 11. Atorvastatin 40 mg tablet daily. 12. Warfarin 2 mg oral daily. SOCIAL HISTORY: The patient lives by himself. He has a niece who lives close by and helps to take care of him. The patient quit smoking cigarettes in 2011 and stopped drinking alcohol in 2011 as well. The patient used to be a heavy smoker and also used to drink heavily. Patient denies using illicit drugs. FAMILY HISTORY: Mother had stomach cancer. Otherwise the patient states that he is not aware of anyone else having any significant diseases in the family. PHYSICAL EXAM: VITAL SIGNS: Temperature 98.4 degree, pulse 89, respirations 20, blood pressure 164/68, oxygen saturation 94% on 2 L. GENERAL: Patient is alert and oriented x3. Initially he was in acute distress secondary to an anxiety attack. After Ativan patient became fairly sleepy. HEENT: Head is normocephalic, atraumatic. Eyes SAFIA. Moist mucous membranes. NECK: Supple. PULMONARY: Well ventilated bilaterally. Minimal wheezing in all lung gomes. Good air movement. CARDIOVASCULAR: S1, S2. Soft systolic murmur the left sternal border. ABDOMEN: Soft, nondistended, nontender. Ostomy bag in place. SKIN: Does not seem irritated. EXTREMITY: No lower extremity edema. Left foot is colder compared to the right foot. Venous stasis bilaterally. Patient has significant pain over the femur on the right side. Due to pain patient cannot move his right leg. +2 pedal pulses on the right side, +3 on the left side. NEUROLOGIC: Cranial nerves 2-12 grossly intact. No focal deficits. PSYCH: Normal mood and affect. LAB DATA: White blood cell count 8.6, hemoglobin 15.8, hematocrit 48, platelets 167,000, sodium 145, potassium 4.6, BUN 23, creatinine 1.5. INR 2.32. IMAGING: Chest x-ray shows stable COPD and fibrotic changes but stable. Head CT shows no acute intracranial pathology. Hip and pelvis x-ray shows fracture of the right femoral neck with only minimal displacement. ASSESSMENT AND PLAN: 1. Right femoral neck fracture. Dr. Argueta from orthopedics was already consulted. The patient will be seen tomorrow. Patient will be placed NPO in case patient needs to go to the OR in the morning. Pain will be managed with morphine. In case patient needs a surgery or a procedure we will hold warfarin. After tomorrow or the procedure we will resume DVT prophylaxis. 2. Acute kidney injury. Patient's creatinine today is 1.5 which is slightly higher than his average. We will provide him with fluids and will recheck CMP. 3. Chronic obstructive pulmonary disease. The patient is on 2 L. The patient does not seem to have an exacerbation. We will hold his home medications. We will provide him with Pulmicort and Brovana twice a day plus nebulizations as needed. 4. Anxiety. The patient has severe anxiety. He had a panic attack while he was in the emergency room which responded very well to 1 mg of Ativan. We will continue his home medication and provide Ativan as needed. 5. Coronary artery disease. We will continue patient's home medication. CODE STATUS: The patient's family states that he has made clear that he wishes to be full code. cc: Liz Padgett MD
[2016-11-24] MEDS ORDERED: D5 1/2 NS 1,000 ML IV ONE (00:15)
[2016-11-24] MEDS: MORPHINE IV PRN ×5 (00:55→23:28)
[2016-11-24 05:47] LABS: HEMATOCRIT 46.6 % (42.0-52.0); HEMOGLOBIN 15.1 g/dL (14.0-18.0); MCH 29.5 PG (27-31); MCHC 32.4 g/dL (33-37); MCV 91.2 FL (81-99); RBC 5.11 XMIL (4.7-6.1)
[2016-11-24 05:56] LABS: INR 2.16; PROTIME 23.8 Seconds (9.2-11.7)
--- NOTE | 2016-11-24 06:01 | EKG Report ---
Test Performed on : 11/23/2016 8:21:39 PM Test Reason : elevated HR/fall Blood Pressure : / mmHG Vent. Rate : 121 BPM Atrial Rate : 129 BPM P-R Int : 000 ms QRS Dur : 100 ms QT Int : 334 ms P-R-T Axes : 000 -50 029 degrees QTc Int : 474 ms Accelerated Junctional rhythm. with retrograde conduction. Left axis deviation Low voltage QRS Inferior infarct , age undetermined Abnormal ECG When compared with ECG of 05-AUG-2016 17:16, Junctional rhythm. has replaced Sinus rhythm. QRS duration has decreased Inferior infarct is now present Nonspecific T wave abnormality now evident in Inferior leads Unconfirmed Result
[2016-11-24 06:14] LABS: CALCIUM 8.5 mg/dL (8.8-10.2); POTASSIUM 5.2 mmol/L (3.5-5.1)
[2016-11-24] MEDS: LIPITOR PO SCH (08:07)
[2016-11-24] MEDS: NEURONTIN PO SCH ×2 (08:07→23:29)
[2016-11-24] MEDS: NORVASC PO SCH ×2 (08:08→23:37)
[2016-11-24] MEDS: BUSPAR PO SCH ×3 (08:08→16:30)
[2016-11-24] MEDS: BROVANA NEB INH SCH ×2 (08:12→19:15)
[2016-11-24] MEDS: PULMICORT INH SCH ×2 (08:13→19:15)
--- NOTE | 2016-11-24 14:31 | CONSULTATION ---
DATE OF CONSULTATION: 02/25/2016 CHIEF COMPLAINT: Right hip pain. HISTORY OF PRESENT ILLNESS: Mr. Soni 86-year-old male who was pulling on a rope yesterday unfortunately that rope broke and then he fell injured his right hip. He was unable to ambulate after that and he was taken to the emergency department where radiographs showed a right hip fracture. He was admitted per the hospitalist service and we were consulted for surgical evaluation. Most of his pain is in the right hip. It is worse with movement, better with just keeping it still. He is not really complaining of any pain anywhere else. PAST MEDICAL HISTORY: Abdominal aortic aneurysm, coronary artery disease status post aortic valve replacement, hypertension, hyperlipidemia, COPD, anxiety. PAST SURGICAL HISTORY: Aortic valve replacement 2001, abdominal aortic aneurysm repair, colectomy, cataract surgery. ALLERGIES: No known drug allergies. MEDICATIONS: Per the medical record. SOCIAL HISTORY: He lives by himself. He currently does not drink alcohol or do any tobacco. FAMILY HISTORY: Positive for stomach cancer. REVIEW OF SYSTEMS: Positive for this right hip pain. All other systems are essentially negative. PHYSICAL EXAMINATION: General: Well-developed, well-nourished male, he is in no acute distress. Head and Neck: Normocephalic, atraumatic. Respirations: Nonlabored. Cardiovascular: Regular rate. Abdomen: Nondistended. Extremities: Right lower extremity exam is tender to palpation at the hip. No tenderness to palpation the knee or the foot. He can dorsiflex, plantar flex his foot very well. He has no palpable pulses to the foot but the foot is warm. He has good sensation to light touch to the foot. No skin ulcerations or abrasions seen. RADIOGRAPHS: Right hip films show a displaced femoral neck fracture. ASSESSMENT: Right displaced femoral neck fracture. PLAN: I discussed Mr. Soni about operative intervention to fix this hip fracture. Unfortunately right now his INR is a little bit high and so I would recommend that we not do it today so that his INR could come down at least below 2, ideally 1.6 or below so he can have a diet from orthopedic standpoint and will plan on putting him on the schedule for tomorrow. I went over with him the procedure, risks, benefits, potential complications. Risks include but are not limited to infection, wound healing problems, damage to nerves, arteries, veins, numbness, fracture, dislocation, implant related problems and DVT and anesthesia related risks. After discussing this with the patient he expressed understanding and wished to proceed so will plan on getting this done tomorrow. He will need be NPO after midnight. cc: Samson Argueta MD
--- NOTE | 2016-11-24 15:00 | PROGRESS NOTE ---
DATE: 11/24/2016 SUBJECTIVE: This is a 86-year-old who complained of right leg pain. Has no primary care physician. He has past medical history COPD, aortic aneurysm, coronary artery disease, severe anxiety, came to the hospital right leg pain. The patient states that earlier the day he was pulling a rope while trying to get something off his trailer fix the awning and the rope gave way and he fell and broke his hip. PAST MEDICAL HISTORY: Once again review. 1. Abdominal aortic aneurysm with subsequent repair. 2. Coronary artery disease status post aortic valve replacement. 3. Hypertension. 4. Hyperlipidemia. 5. COPD on 2 L at home with home O2. 6. Benign colon tumor status post colectomy. 7. Anxiety. PAST SURGICAL HISTORY: 1. Mechanical aortic valve replacement 2001. 2. Abdominal aortic aneurysm repair. 3. Colectomy and colostomy placement. 4. Cataract surgery. 1. Admitted Dr. Argueta I think to evaluate and planning on open reduction, internal fixation. 2. Acute kidney injury, going to give him some volume and creatinine is 1.5 and see if we can get his creatinine down little lower. 3. Chronic obstructive pulmonary disease aware, he is on 2 L O2, he is on Pulmicort and Brovana and getting nebulizer. 4. Anxiety history. 5. History of coronary artery disease. 6. Abdominal aortic aneurysm repair. 7. And then lastly he has got a colostomy bag from colectomy left colon colectomy aware. I think the plan is for surgery tomorrow. EXAM: General: Today awake and pleasant, alert. Vital signs: Temperature 97.7 degrees, pulse 89, respirations 20, blood pressure 128/60, CVP less than 6 cm. Lungs: Clear in all lung gomes. Cardiovascular: Regular rhythm, rate without murmur or S3. Abdomen: Soft. Skin: Warm and dry. LAB: Reviewed from yesterday. Hematocrit 46, electrolytes look good, potassium is 5.2, creatinine bumped up to 1.8. Urine was 4+ bacteria and few white blood cells. Chest x-ray stable COPD, fibrotic changes, interstitial thickening bilateral suggesting fibrosis. Head CT. Stable mild chronic changes but no evidence of acute intracranial pathology. Hip and pelvis x-ray fracture of the right femoral neck. ASSESSMENT AND PLAN: As above. Wait for surgery. He has mechanical valve so anticoagulation from home. He is on Coumadin, obviously that has been held. His pro time was 25, today is 23, planning surgery tomorrow. They would like to get it down I think to 17 or so. Will discuss with orthopedic. cc: Justin Mckinney MD
[2016-11-24] MEDS: NS 1,000 ML IV SCH (16:30)
[2016-11-24] MEDS: ATIVAN PO SCH ×2 (19:05→23:14)
[2016-11-24] MEDS ORDERED: LOPRESSOR IV ONE (19:28)
[2016-11-24] MEDS ORDERED: ATIVAN IV ONE (19:28)
--- NOTE | 2016-11-24 20:21 | Diag Imaging Result Doc PS360 ---
EXAM: CHEST-PORTABLE - 11/24/2016 HISTORY: SOB TECHNIQUE: Portable chest 1939 COMPARISON: 11/23/2016 FINDINGS: Heart size is within normal limits. There are sternal wires from previous surgery again seen. There are COPD/emphysematous changes and pulmonary fibrosis. There is questionable superimposed infiltrate at the right base versus differences in technical factors. There is no pleural effusion or pneumothorax identified. IMPRESSION: COPD/emphysematous changes and pulmonary fibrosis. Questionable superimposed infiltrate at right base versus differences in technical factors. Electronically signed by Luis Cerna 11/24/2016 8:19 PM
[2016-11-24] MEDS: SINGULAIR PO SCH (23:29)
[2016-11-25] MEDS: MORPHINE IV PRN ×3 (03:03→17:38)
[2016-11-25 05:38] LABS: HEMATOCRIT 43.4 % (42.0-52.0); HEMOGLOBIN 13.9 g/dL (14.0-18.0); MCH 29.6 PG (27-31); MCV 92.3 FL (81-99); MPV 10.3 FL (7.4-10.4); RBC 4.7 XMIL (4.7-6.1)
[2016-11-25] MEDS: NS 1,000 ML IV SCH ×2 (06:00→06:42)
[2016-11-25 06:01] LABS: INR 2.73; PROTIME 30.6 Seconds (9.2-11.7)
[2016-11-25] MEDS: BROVANA NEB INH SCH ×2 (07:31→19:50)
[2016-11-25] MEDS: PULMICORT INH SCH ×2 (07:31→19:50)
--- NOTE | 2016-11-25 08:24 | PROGRESS NOTE ---
DATE: 11/25/2016 SUBJECTIVE: Mr. Soni this morning that right hip is hurting though. OBJECTIVE: Right Lower Extremity Examination: Some tenderness to palpation the right hip. He has still good dorsiflexion and plantarflexion of the foot and no knee pain. ASSESSMENT: Right femoral neck fracture. PLAN: Unfortunately, Mr. Soni's INR went up despite not being on Coumadin. It was 2.7 this morning which unfortunately it is still too high for operative intervention so I would recommend vitamin K protocol to lower his INR. I would like to get this done soon rather than later to help control his pain and also get him up and moving so he does not get pneumonia or other comorbidities. We will plan on doing this tomorrow. He can have a diet today. I will make him NPO after midnight tonight. cc: Samson Argueta MD
[2016-11-25] MEDS: BUSPAR PO SCH ×4 (09:04→17:16)
[2016-11-25] MEDS: NORVASC PO SCH ×3 (09:04→23:40)
[2016-11-25] MEDS: LIPITOR PO SCH (09:04)
[2016-11-25] MEDS: NEURONTIN PO SCH ×3 (09:04→23:39)
[2016-11-25] MEDS ORDERED: VITAMIN K 10 MG in NS 50 ML IV ONE (09:34)
[2016-11-25] MEDS: NORCO-5 PO PRN ×2 (11:51→19:33)
[2016-11-25] MEDS ORDERED: HEPARIN 25,000 UNITS/D5W 25,000 UNIT/250 ML IV.SOLN IV SCH ×2 (12:45→16:03)
--- NOTE | 2016-11-25 13:09 | PROGRESS NOTE ---
DATE: 11/25/2016 SUBJECTIVE: This morning, Mr. Soni referred to be doing a little better. Obviously he is showing some signs of respiratory distress. OBJECTIVE: Vital signs: Blood pressure is 152/66, pulse is 102, respirations 24, temperature is 98.1 degrees. He is on Ventimask with a flow rate of 15 L and saturating 91- 97. Of note, the patient came in with an oxygen saturation level of 87. General: Mr. Soni is an 86-year-old male. He is in bed. Mild respiratory distress. HEENT: Mucosa is pink and moist. Anicteric. Acyanotic. Neck: Supple. Chest: Air entry is bilaterally reduced. There are diffuse bilateral rales in both lung gomes. There is also some exploratory rhonchi. Cardiovascular: Regular rate and rhythm. There is a pronounced S2 with a metallic click consistent with aortic mechanical prostatic valve. There are no murmurs, no rubs, and no gallops. Extremities: Maybe a trace of pedal edema. BULB GROWER: Patient is awake, alert, and oriented. There is no focal neurological deficit. DIAGNOSTIC STUDIES: Review of chest x-ray yesterday shows COPD, emphysematous changes, and pulmonary fibrosis, questionable superimposed infiltrate at the right base versus difference in technical factors. X-ray of the hip shows a fracture of the right femoral neck. ASSESSMENT: 1. Fracture of right femoral neck. Patient sustained this after he fell working on his truck. He denied any syncopal episode before this. The patient has been evaluated by orthopedics and because INR is high they are waiting for that to be a little bit low before they will do surgery. It is usually recommended to have the INR below 1.5 before surgery. 2. Coumadin therapy. INR is 2.73 which is actually therapeutic for his mechanical valve. However, we need to bring it down a little before surgery is done. We are going to give him a dose of vitamin K. We had earlier on ordered FFP but I will go ahead and discontinue this since it will make him just too prothrombotic and we do not want that. 3. Acute hypoxemic respiratory distress. Patient came in with saturation of 87- 88 on room air. Was initially put on non-rebreather. However, now he is sustaining 91-97 on Venturi mass. I think this is probably a COPD exacerbation versus possibly underlying congestive heart failure. We are going to do an echo, do also a CT scan of the chest, and have both cardiology and pulmonary medicine evaluate the patient before surgery. In terms of his preop clearance, I think patient has more decompensation in his lungs which could be primary COPD or congestive heart failure and we probably need to optimize that before surgery. Will get the echo and CT, get cardiology and pulmonary medicine to see the patient, and will also give the patient a dose of vitamin K. We will repeat his INR tomorrow. If it is below 1.5 and if it is okay with cardiology and pulmonary medicine, then patient will be able to go for surgery. cc: Francisco Manjarrez MD MTDD
--- NOTE | 2016-11-25 13:37 | CONSULTATION ---
DATE OF CONSULTATION: 11/25/2016 REASON FOR CONSULTATION: Patient admitted with right hip fracture. Preop evaluation for the patient. He has a mechanical aortic valve replacement. HISTORY OF PRESENT ILLNESS: This is an 89-year-old gentleman who has history of COPD, abdominal aorta aneurysm repair, mechanical aortic valve in 2001 placed in [place], [place] is followed up at the [facility] in [facility]. He on the day of admission was pulling a rope while trying to fix something on his trailer. The rope broke and he landed on his right side, injured his right leg and sustained a fracture. Patient was brought to the hospital and surgery of the hip is planned when the INR is more therapeutic, probably at 1.5. His INR is elevated. From a cardiac standpoint, there was no syncope associated with the fall. Patient denies chest pain. He has COPD and he is on inhalers. REVIEW OF SYSTEMS: A 14-point review of system was done. GI System: There is no history of nausea. There is no history of hematemesis or melena. Central nervous system: No focal weakness to suggest a CVA or TIA. : There is no dysuria or hematuria. PAST MEDICAL HISTORY: 1. Mechanical aortic valve replacement in [place] in 2001. 2. Abdominal aorta surgery repair. 3. Benign colon tumor status post colectomy. 4. Hypertension. 5. Hyperlipidemia. 6. COPD. 7. Cataract surgery. 8. Other surgeries include colectomy and colostomy placement. 9. Anxiety disorder. HOME MEDICATIONS: Include buspirone 50 mg 3 times a day, gabapentin, Symbicort, montelukast, Tums 300 mg b.i.d., amlodipine 5, amoxicillin clavulanic acid 1 tablet twice a day, Spiriva atorvastatin 40, and Coumadin. ALLERGIES: He is not known to be allergic to any medications. PHYSICAL EXAMINATION: Vital Signs: Blood pressure 160/68. Cardiovascular: Jugular venous pressure was normal. First and second heart sounds were heard. Mechanical prosthetic valve sounds noted. Respiratory: Scattered bilateral wheeze. Abdomen: Soft, nontender. Bowel sounds were heard. Central nervous system: Alert. Extremities: Right hip fracture. Detailed examination not performed. LABORATORY EXAMINATION: Hematology: WBC 10.7, hemoglobin 13.9, hematocrit 43, platelet count of 106,000. Chemistry: Sodium 140, potassium 5.2, BUN 29, creatinine 1.8. Chest x-ray: COPD, emphysema with pulmonary fibrosis with infiltrate right base versus technical factors as per report. Head CT unremarkable. Hip-pelvis x-ray: Fracture of the right femoral neck. Patient's coagulation, INR 2.32, today INR 2.73. Patient received vitamin K. ASSESSMENT AND PLAN: Mr. Petros Soni is an 86-year-old gentleman with a history of aortic valve mechanical replacement in 2001 in [place], [place], abdominal aorta aneurysm repair, chronic obstructive pulmonary disease, fell and sustained a fracture to his right hip. 1. From a cardiac standpoint, he has a mechanical valve which is functioning appropriately by auscultation. We will get an echocardiogram to assess cardiac and valvular function. 2. As far as his INR is concerned, it is elevated. We let the INR drift down and in the interim discontinue his Coumadin and put him on IV heparin as he has mechanical valve. 3. He is short of breath. He has IV fluids to hydrate him. He is going to have a CAT scan to make sure there is no significant worsening airspace disease. 4. Hypertension. Continue with amlodipine. 5. Chronic obstructive pulmonary disease, emphysema. He is on inhalers. Recommend continuing the medications. Thank you for the consult. We will follow hospital course. cc: Jesus Manuel Perez MD
--- NOTE | 2016-11-25 13:40 | Diag Imaging Result Doc PS360 ---
CT THORAX W/O CONTRAST - 11/25/2016 INDICATION: Pneumonia TECHNIQUE: A CT dose reduction protocol was used. COMPARISON: CT from 02/11/2015. Chest x-ray from 11/24/2016. FINDINGS: There is stable severely advanced pulmonary emphysema. There is an aortic valve prosthesis. Heart size is top normal with no pericardial effusion. Stable moderate dilation of the distal descending thoracic aorta. Stable small cysts in the liver and kidneys. There is severe worsening bilateral lower lobe consolidation/pneumonia. A trace pleural effusions that are similar to prior. There is background interstitial opacity throughout the lungs diffusely and bilaterally suggesting pulmonary edema. There is some stable pleural-parenchymal biapical scarring. Esophagus is slightly dilated with some fluid similar to prior. Bones are intact. IMPRESSION: 1. Severe worsening in diffuse background pulmonary interstitial infiltrates suggesting pulmonary edema. Trace pleural effusions. 2. Severe bilateral lower lobe consolidation/pneumonia. 3. Severe emphysema. Electronically signed by Ankush Otero 11/25/2016 1:38 PM
[2016-11-25] MEDS ORDERED: LASIX IV ONE (14:54)
[2016-11-25 16:25] LABS: ALLEN TEST YES; BE -0.2 mmoll (-3.0-3.0); BLOOD TYPE ARTERIAL; DRAW SITE R RADIAL; METHB 0.6 % (0.0-1.5); O2(CT) 17.9 mL/dL (15.0-23.0); PCO2(98.6) 37 mmHg (35-45); PO2(98.6) 60 mmHg (60-100); SAMPLE BLOOD; SAO2 95.3 % (95.0-100.0); THB 13.8 g/dL (11.5-17.4); pH(98.6) 7.42 (7.35-7.45)
[2016-11-25 16:26] LABS: MODALITY VENTIMASK
[2016-11-25] MEDS ORDERED: HEPARIN IV ONE (17:26)
[2016-11-25] MEDS: ATIVAN PO SCH ×2 (19:33→23:39)
[2016-11-25] MEDS: SINGULAIR PO SCH ×2 (19:34→23:40)
[2016-11-25] MEDS: DOXYCYCLINE 100 MG in NS 250 ML IV SCH (23:52)
[2016-11-26] MEDS ORDERED: HEPARIN IV ONE (00:10)
[2016-11-26] MEDS ORDERED: HEPARIN 25,000 UNITS/D5W 25,000 UNIT/250 ML IV.SOLN IV SCH (00:19)
[2016-11-26] MEDS: MORPHINE IV PRN ×3 (00:41→15:56)
[2016-11-26 04:00] LABS: ALLEN TEST YES; BE -0.7 mmoll (-3.0-3.0); BLOOD TYPE ARTERIAL; DRAW SITE R RADIAL; METHB 0.7 % (0.0-1.5); O2(CT) 16.3 mL/dL (15.0-23.0); PCO2(98.6) 40 mmHg (35-45); PO2(98.6) 52 mmHg (60-100); SAMPLE BLOOD; SAO2 91.9 % (95.0-100.0); THB 13.1 g/dL (11.5-17.4); pH(98.6) 7.39 (7.35-7.45)
[2016-11-26 04:01] LABS: MODALITY VENTIMASK
--- NOTE | 2016-11-26 05:20 | EKG Report ---
Test Performed on : 11/25/2016 9:02:45 PM Test Reason : poss 2nd block on tele Blood Pressure : / mmHG Vent. Rate : 085 BPM Atrial Rate : 085 BPM P-R Int : 268 ms QRS Dur : 118 ms QT Int : 358 ms P-R-T Axes : 044 -37 064 degrees QTc Int : 426 ms Sinus rhythm. with marked sinus arrhythmia. with 1st degree AV block. Left axis deviation Incomplete left bundle branch block Abnormal ECG When compared with ECG of 23-NOV-2016 20:21, (Unconfirmed) Sinus rhythm. has replaced Junctional rhythm. Incomplete left bundle branch block is now present Criteria for Inferior infarct are no longer present Nonspecific T wave abnormality no longer evident in Inferior leads first degree AV block Confirmed by Faye JUAREZ, Justin Honeycutt ([id number]) on 11/26/2016 10:05:10 AM
--- NOTE | 2016-11-26 06:26 | EKG Report ---
Test Performed on : 11/26/2016 05:54:33 AM Test Reason : repeat ekg Blood Pressure : / mmHG Vent. Rate : 082 BPM Atrial Rate : 082 BPM P-R Int : 304 ms QRS Dur : 126 ms QT Int : 398 ms P-R-T Axes : 043 -48 072 degrees QTc Int : 464 ms Sinus rhythm. with 1st degree AV block. Left bundle branch block Abnormal ECG When compared with ECG of 25-NOV-2016 21:02, (Unconfirmed) No significant change was found Confirmed by Faye JUAREZ, Justin Honeycutt ([id number]) on 11/26/2016 10:06:25 AM
[2016-11-26 06:29] LABS: MANUAL DIFF NEEDED? NO
[2016-11-26 06:37] LABS: BASO% 0.3 % (0.0-0.8); EOS# 0.63 X1000 (0.0-0.7); EOS% 7.1 % (0.0-10.0); HEMOGLOBIN 13.4 g/dL (14.0-18.0); IMM GRAN# 0.02 X1000 (0.0-0.04); IMM GRAN% 0.2 % (0.0-0.5); LYMPH# 1.16 X1000 (1.2-3.4); LYMPH% 13.1 % (20.5-51.1); MCH 29.1 PG (27-31); MCHC 32.7 g/dL (33-37); MCV 89.1 FL (81-99); MONO# 0.61 X1000 (0.11-0.59); MONO% 6.9 % (1.7-9.3); MPV 10.5 FL (7.4-10.4); NEUT% 72.4 % (42.2-75.2); PLT 114 X1000 (130-400)
[2016-11-26 07:09] LABS: CALCIUM 8.3 mg/dL (8.8-10.2)
[2016-11-26 07:21] LABS: INR 1.15; PROTIME 12.2 Seconds (9.2-11.7)
--- NOTE | 2016-11-26 07:34 | Diag Imaging Result Doc PS360 ---
CHEST-1 VIEW - 11/26/2016 INDICATION: SOB TECHNIQUE: COMPARISON: 11/24/2016 FINDINGS: Stable sternotomy changes. Stable cardiomegaly and pulmonary vascular congestion. There is improvement in the ill-defined increased markings/infiltrates in the lung bases. No new infiltrates. No pneumothorax or significant effusion. IMPRESSION: Improvement in the bibasilar infiltrates. Electronically signed by Ankush Otero 11/26/2016 7:32 AM
[2016-11-26] MEDS: BROVANA NEB INH SCH ×2 (07:48→19:38)
[2016-11-26] MEDS: PULMICORT INH SCH ×2 (07:48→19:38)
--- NOTE | 2016-11-26 08:27 | PROGRESS NOTE ---
DATE: 11/26/2016 SUBJECTIVE DATA: Mr. Soni is resting comfortably in bed at this moment. He does complain of pain to the hip. He is ready to proceed with surgery. OBJECTIVE DATA: Right lower extremity exam: He does have some tenderness to palpation over the right hip. He still has good dorsiflexion and plantar flexion of the foot. He denies any other pain. He is externally rotated and short. He has good sensation to the foot. He has a weak pedal pulse and is a little bit cool to that foot. His capillary refill is a little sluggish. ASSESSMENT: Right femoral neck fracture. PLAN: Mr. Soni's INR this morning is 1.15 after he received his vitamin K. We will plan to proceed with a right hemiarthroplasty today. He has been n.p.o. since midnight. We will plan to do this today after clinic. Dictated by MANUEL Linn for Samson Argueta MD cc: MANUEL Linn MD
--- NOTE | 2016-11-26 08:42 | CONSULTATION ---
DATE OF CONSULTATION: 11/25/2016 REFERRING PHYSICIAN: Dr. Francisco Manjarrez. CHIEF COMPLAINT: Right leg pain. HISTORY OF PRESENT ILLNESS: This is an 86-year-old, male, with past medical history of COPD, aortic aneurysm, CAD, and anxiety that presented to the hospital with complaints of right leg pain secondary to a mechanical fall. Diagnostics reveal a femoral neck fracture that will require orthopedic surgery. The patient was also short of breath with low oxygen saturations. He denies any fever, chills, chest pain, abdominal pain, nausea, vomiting, or diarrhea. REVIEW OF SYSTEMS: A 10-point review of systems was conducted and pertinent as noted in the HPI, otherwise, noncontributory. PAST MEDICAL HISTORY: As mentioned in the HPI, otherwise, noncontributory. PAST SURGICAL HISTORY: Mechanical aortic valve replacement, abdominal aortic aneurysm repair, colectomy, and colostomy placement, cataract surgery. ALLERGIES: No known drug allergies. FAMILY HISTORY: Notable for stomach cancer. SOCIAL HISTORY: The patient lives at home alone. Previous smoker, previous drinker, and denies illicit drug use. ACTIVE MEDICATIONS: 1. Norvasc. 2. Brovana. 3. Lipitor. 4. Pulmicort. 5. BuSpar. 6. Doxycycline. 7. Lasix. 8. Neurontin. 9. Heparin. 10. Talisheek. 11. Levaquin. 12. Ativan. 13. Singulair. 14. Morphine. PHYSICAL EXAMINATION: Vital Signs: Blood pressure 135/48, oxygen saturation 94 %. Heart rate 89, respiratory rate 15, temperature 98.1 degrees. General: Awake, alert. No acute distress noted. HEENT: Normocephalic and atraumatic. PERRL. Cardiovascular: S1-S2 present. Chest: Reduced entry with scattered expiratory wheezes. Abdomen: Soft. Bowel sounds present in all quadrants. Extremities: Distal pulses palpable. Neurologic: No focal deficits. LABORATORY DATA AND INVESTIGATIONS: WBC 8.85, RBCs 4.6, hemoglobin 13.4, hematocrit 41, platelet count 114,000. Sodium 139, potassium 4, chloride 106, carbon dioxide 22, anion gap 11. BUN 43, creatinine 1.4, glucose 99. Blood gas reveals a pH of 7.39, pCO2 of 40, PO2 of 52, HC03 of 24.2, base excess -0.7. Saturated oxygen of 92%. Chest x-ray performed 11/26/2016 shows improvement in the bibasilar infiltrates. ASSESSMENT AND PLAN: This is an 86-year-old male with past medical history mentioned in the HPI that presented hospital with right leg pain after sustaining a mechanical fall. He was found to have a femoral neck fracture that will require orthopedic surgery. He is also short of breath and in hypoxemic respiratory failure. This could be secondary to the infiltrates found on imaging that are improving with antibiotic therapy. Blood gas this morning reveals a PO2 of 52. Continue with supplemental oxygen, IV antibiotics, inhaled bronchodilators, and DVT prophylaxis. Further recommendation pending diagnostic studies. Hypoxia is multifactorial due to COPD and pulmonary vascular congestion. Moderate pulmonary risk for GA. We recommend to use spinal or epidural anesthesia if feasible. Thank for the courtesy of this consult. Dictated by MANUEL Corrales for Zoë Hernandez MD cc: MANUEL Corrales MD MTDD
[2016-11-26] MEDS: LEVAQUIN 500 MG/D5W 500 MG/100 ML IVPB IV SCH (10:06)
[2016-11-26] MEDS: LASIX IV SCH (10:06)
[2016-11-26] MEDS: NORVASC PO SCH ×2 (10:07→23:46)
[2016-11-26] MEDS: BUSPAR PO SCH ×3 (10:07→23:46)
[2016-11-26] MEDS: NEURONTIN PO SCH ×2 (10:07→23:46)
[2016-11-26] MEDS: LIPITOR PO SCH (10:07)
[2016-11-26] MEDS: HEPARIN 25,000 UNITS/D5W 25,000 UNIT/250 ML IV.SOLN IV SCH ×2 (10:21→22:14)
[2016-11-26] MEDS: DOXYCYCLINE 100 MG in NS 250 ML IV SCH ×2 (11:09→23:45)
--- NOTE | 2016-11-26 11:43 | ECHO REPORT ---
ORDER DATE: 11/25/2016 INDICATIONS: CHF, aortic valve replacement. FINDINGS: This is an extremely difficult study with poor windows. The patient had a hip fracture and so is unable to be maneuvered appropriately for the study. 1. The right atrium is mildly enlarged at 4.3 cm. 2. Mild tricuspid regurgitation. RV systolic pressure of 53. 3. There is poor overall visualization of the right ventricle. 4. Trace pulmonic insufficiency. 5. Normal left atrial size at 3.8. 6. No mitral prolapse. Mild mitral regurgitation. 7. Normal LV size. Normal wall thicknesses. The end-diastolic dimension is 3.6. The posterior and interventricular septal wall thicknesses are 0.7 and 0.8 cm respectively. Likely normal LV systolic function. There is significant off axis and poor quality views. The estimated EF is greater than 55%. 8. There is a well seated prosthetic in the aortic position. This was poorly visualized on 2- dimensional images. The peak gradient is 42 with a mean of 28. In January of 2013, the peak gradient was 53 with a mean of 25. Poor imaging in 2014 demonstrated a peak and mean of 29 and 14. Overall, this study does not appear to show significant change in the valve compared to the study in 2012. There is no perivalvular leak. 9. Aorta appears normal in visualized segments. 10. No pericardial effusion identified. cc: MD Francisco Lua MD
[2016-11-26 15:52] LABS: INR 1.08; PROTIME 11.4 Seconds (9.2-11.7); PTT 35.7 Seconds (22.0-36.0)
[2016-11-26] MEDS ORDERED: SODIUM CHLORIDE 0.9% 20 ML ONE (16:09)
[2016-11-26] MEDS ORDERED: NEO-SYNEPHRINE ONE ×2 (16:09→17:52)
[2016-11-26] MEDS ORDERED: XYLOCAINE-MPF 2% ONE (16:11)
[2016-11-26] MEDS: SOLU-MEDROL IV SCH (16:30)
--- NOTE | 2016-11-26 16:36 | PROGRESS NOTE ---
DATE: 11/26/2016 SUBJECTIVE: Today, Mr. Soni refers to be doing a little better. I think his breathing has significantly improved. OBJECTIVELY: Vital signs: Blood pressure is 115/53, pulse of 103, respirations 24, temperature 97.8 degrees. General: Mr. Soni is an 86-year-old, male. He is in bed. He does not seem to be in any remarkable distress like yesterday. HEENT: Mucosa is pink and moist. Anicteric. Acyanotic. Neck: Supple. Did not appreciate any JVD. Chest: Air entry is bilaterally reduced. There are some bilateral wet crepitations. Cardiovascular: Regular rate and rhythm. There is a PS murmur of about 2/6. There is also a metallic click of the aortic metallic valve. Abdomen: Soft, is nontender. There is an ostomy on the left lower abdomen, which the bag has some fecal material. Extremities: No pedal edema. Central nervous system: The patient is awake and alert and oriented. There is no focal neurological deficit. LABORATORY DATA: 1. WBC is 8.85, hemoglobin is 13.4, platelet count of 114,000. 2. Chemistry is reviewed. Stable creatinine, is down to 1.4. ProBNP 3366. DIAGNOSTIC STUDIES: 1. A CT scan of the chest, which was done yesterday, shows severe worsening in diffuse background pulmonary infiltrates, suggestive of pulmonary edema with some trace pleural effusions. There is severe bilateral lower lobe consolidation/pneumonia, severe emphysema. 2. An echocardiogram which was done shows ejection fraction of about 55%. ASSESSMENT: 1. Acute hypoxemic respiratory distress. Sounds multifactorial, including chronic obstructive pulmonary disease exacerbation. Bilateral lower lobe infiltration, questionable for pneumonia and also pulmonary edema from congestive heart failure. We are going to continue to address each one of them. 2. Chronic obstructive pulmonary disease exacerbation. CT scan shows very advanced COPD. The patient continues to have some findings on physical exam consistent with bronchospasm. We are going to continue with the bronchodilation. The patient is currently on bronchodilation therapy, antibiotics, and will add steroids to his therapy. 3. Bilateral lower lobe infiltrate, concerning for pneumonia. The patient is on levofloxacin. We added doxycycline to cover for possible MRSA and atypicals. 4. Fracture to right femoral neck. The patient needs to have surgery. Orthopedics plan to take him to the surgery today. The patient does have a very high perioperative risk; however, I think the surgery is necessary and emergent, so we will recommend that they go ahead for the surgery. It is, however, recommendable if this can be done under spinal or local. 5. Coumadin therapy. The patient's INR was 2.73. The patient was given vitamin K this morning. His INR is down to 1.15. He was bridged with heparin because of the mechanical valve. 6. Aortic mechanical valve. We will continue the heparin once the patient resumes p.o. medications, then we will restart him on Coumadin after the after the surgery. 7. Congestive heart failure with preserved ejection fraction. The patient will continue with diuretics and risk factor modification, including adequate control of the patient's blood pressure. 8. Acute kidney injury. This seems to be improving. 9. Bifascicular block (left anterior fascicular block and first-degree atrioventricular block. So, in general, I think Mr. Soni is a very complicated patient, with a lot of comorbidities, pretty much in advanced stage, including CHF and congestive heart failure with preserved ejection fraction. On top of that, has pneumonia. He has an acute fracture of the of the right femoral neck which needs surgery. Will recommend if this can be done under local or spinal that will be better. cc: Francisco Manjarrez MD
[2016-11-26] MEDS ORDERED: KEFZOL 1 GM/D5W 1 GM/50 ML IVPB ONE (16:52)
[2016-11-26] MEDS ORDERED: DIPRIVAN 1% ONE (17:02)
[2016-11-26] MEDS ORDERED: FENTANYL ONE (17:09)
[2016-11-26] MEDS ORDERED: BROVANA NEB ONE (18:57)
[2016-11-26] MEDS ORDERED: PULMICORT ONE (18:58)
[2016-11-26] MEDS ORDERED: HALDOL IV PRN (19:04)
[2016-11-26] MEDS ORDERED: MILK OF MAGNESIA PO PRN (19:04)
[2016-11-26] MEDS ORDERED: ZOFRAN IV PRN (19:04)
[2016-11-26] MEDS: TYLENOL PO SCH (19:15)
--- NOTE | 2016-11-26 19:28 | Diag Imaging Result Doc PS360 ---
EXAM: PELVIS HISTORY: postop hip valentina TECHNIQUE: Portable single view COMPARISON: 11/23/2016 FINDINGS: There has been orthopedic replacement of the right hip. Femoral head component appears well-positioned within the acetabular component on this single view. There are lateral skin bernadette. The bowel loops in the pelvis are not dilated. IMPRESSION: Recent orthopedic replacement of the right hip. Electronically signed by Kenyon Trivedi 11/26/2016 7:26 PM
[2016-11-26] MEDS: COLACE PO SCH (21:00)
[2016-11-26] MEDS ORDERED: COUMADIN PO SCH (21:00)
[2016-11-26] MEDS: NS 1,000 ML IV SCH (22:15)
[2016-11-26] MEDS: ATIVAN PO SCH (23:45)
[2016-11-26] MEDS: NORCO-5 PO PRN (23:46)
[2016-11-26] MEDS: SINGULAIR PO SCH (23:46)
[2016-11-27] MEDS: MORPHINE IV PRN (01:12)
[2016-11-27] MEDS: HEPARIN 25,000 UNITS/D5W 25,000 UNIT/250 ML IV.SOLN IV SCH ×4 (01:32→23:34)
[2016-11-27] MEDS: PERIDEX MT SCH ×3 (01:33→20:38)
[2016-11-27] MEDS: KEFZOL 1 GM/D5W 1 GM/50 ML IVPB IV SCH ×2 (02:15→09:40)
[2016-11-27] MEDS: TYLENOL PO SCH ×2 (03:00→20:40)
--- NOTE | 2016-11-27 03:47 | OPERATIVE NOTE ---
PROCEDURE DATE: 11/26/2016 PREOPERATIVE DIAGNOSIS: Right displaced femoral neck fracture. POSTOPERATIVE DIAGNOSIS: Right displaced femoral neck fracture. PROCEDURE: Right hip hemiarthroplasty. SURGEON: Samson Argueta MD WIDE AREA NETWORK ENGINEER: Darcy Rucker NP. She was an integral part of the case helping with retraction, exposure, implantation of hardware, trialing, hip reduction and closure for help in the case, and helped with OR efficiency and decreased our OR time dramatically. ANESTHESIA: Spinal. ESTIMATED BLOOD LOSS: About 150 mL IMPLANTS: DePuy Corail stem size 15 with a 55 head. DISPOSITION: To PACU, hemodynamically stable. INDICATION FOR PROCEDURE: Mr. Soni is an 86-year-old male who presented to the emergency department 11/23/2016. He was admitted per the hospitalist. He had been on Coumadin so we waited until Thursday to get it done until his INR dropped down. Unfortunately on Thursday, his INR was still pretty high at 2.7. We ended up having to wait another day and then this morning, it was 1.15 and so we decided to go ahead and proceed today with his surgery. We went over with him the procedure, risks, benefits, potential complications. Risks include, but are not limited to, infection, wound healing problems, damage to nerves, arteries, veins, numbness, fracture, dislocation, continued pain, DVT and anesthesia related risks. After discussing these with the patient, he expressed understanding and wished to proceed. DESCRIPTION OF PROCEDURE: Mr. Soni was identified in the preop holding area. The right hip was marked as correct surgical site. He was then wheeled to the operating room, placed supine on the operating table. He was given spinal anesthesia. He was then flipped to the left lateral decubitus position. All bony prominences were well padded. Axillary roll was placed. Right lower extremity was then prepped with a Betadine scrub, dried and then ChloraPrep, draped in normal sterile fashion. Surgical pause was performed. We identified the correct patient, the correct side, and the correct procedure. Preop antibiotics were given. I started with a standard posterior approach to the hip. Dissection was carried down through the deep fascia. I identified our short external rotators. I identified the piriformis tendon as well. I was able to tag it and then we were able to come down on the capsule. We T'd the capsule, which then exposed the fractured neck. The neck had a pretty low break on it. There were a few little comminuted pieces around it that were removed with a rongeur. I then removed the head. I sized it to a 55, trialed that 55 and that actually fit really well. I then subsequently broached up to a size 15 and that actually fit really well. I had good press fit. Calcar planed the bone to make everything smooth. We then trialed that and actually everything fit really well. I felt like we got his length back as well and he was very stable. We then removed those components. I irrigated everything copiously with normal saline. Made sure there were no bone fragments down in the acetabulum. I then put our implants in and reduced the hip back. He was very stable at this point, especially in flexion and internal rotation. He has good motion we then repaired the capsule. I repaired the piriformis I then closed the deep fascia, all with 0 Vicryl, 2-0 Vicryl for the subcutaneous, and bernadette on the skin. Adaptic, 4x4s, and an island dressing was placed. Patient was then moved to his own bed and taken to the PACU in stable condition. Postoperatively, he will be weight bear as tolerated to the right lower extremity, and I will see him in the morning. cc: Samson Argueta MD
[2016-11-27 04:07] LABS: INR 1.08; PROTIME 11.4 Seconds (9.2-11.7)
[2016-11-27 04:08] LABS: HEMATOCRIT 38.1 % (42.0-52.0); HEMOGLOBIN 12.6 g/dL (14.0-18.0)
[2016-11-27 04:09] LABS: CALCIUM 8.2 mg/dL (8.8-10.2); POTASSIUM 4.3 mmol/L (3.5-5.1)
[2016-11-27 04:26] LABS: BE -1.3 mmoll (-3.0-3.0); BLOOD TYPE ARTERIAL; METHB 0.6 % (0.0-1.5); O2(CT) 17.9 mL/dL (15.0-23.0); PCO2(98.6) 40 mmHg (35-45); PO2(98.6) 79 mmHg (60-100); SAMPLE BLOOD; SAO2 98.5 % (95.0-100.0); THB 13.3 g/dL (11.5-17.4); pH(98.6) 7.38 (7.35-7.45)
[2016-11-27 04:27] LABS: ALLEN TEST YES; DRAW SITE R RADIAL; MODALITY VENTIMASK
[2016-11-27] MEDS: SOLU-MEDROL IV SCH ×2 (04:53→16:39)
--- NOTE | 2016-11-27 06:01 | Diag Imaging Result Doc PS360 ---
EXAM: CHEST-1 VIEW HISTORY: SOB TECHNIQUE: Portable upright AP COMPARISON: 11/26/2016 FINDINGS: There are increased interstitial markings in the mid and lower lungs. Sternal wires are present. The heart is not enlarged. No pleural effusions identified. The infiltrates in the upper lungs are slightly less pronounced than they were on the prior exam. However, the markings in the right base are somewhat more pronounced. IMPRESSION: Persistent bilateral infiltrates with slight improvement in the upper lungs, but mild worsening in the right base. Electronically signed by Kenyon Trivedi 11/27/2016 5:59 AM
[2016-11-27] MEDS ORDERED: BROVANA NEB ONE (07:56)
[2016-11-27] MEDS: BROVANA NEB INH SCH ×2 (07:59→19:21)
[2016-11-27] MEDS: PULMICORT INH SCH ×2 (08:00→19:21)
[2016-11-27] MEDS: LASIX IV SCH (09:41)
[2016-11-27] MEDS: BUSPAR PO SCH ×2 (09:43→16:40)
[2016-11-27] MEDS: LIPITOR PO SCH (09:43)
[2016-11-27] MEDS: NORVASC PO SCH ×2 (09:43→20:38)
[2016-11-27] MEDS: NEURONTIN PO SCH ×2 (09:43→20:38)
[2016-11-27] MEDS: LEVAQUIN 500 MG/D5W 500 MG/100 ML IVPB IV SCH (09:43)
[2016-11-27] MEDS: FERROUS SULFATE PO SCH (09:44)
--- NOTE | 2016-11-27 09:52 | PROGRESS NOTE ---
DATE: 11/27/2016 SUBJECTIVE: Mr. Soni is lying in bed this morning. Says his hip feels better. OBJECTIVE: Right Lower Extremity Examination: Dressing is clean, dry, and intact. He has good sensation to light touch to the toes. He is able to move the toes up and down. ASSESSMENT: Status post right hip hemiarthroplasty for fracture. PLAN: Today, Mr. Soni is doing well. His postoperative radiograph looked great so I am okay with him being weightbearing as tolerated today. He will start working with therapy, getting up and out of bed and moving. agricultural services director will be involved for placement issues. cc: Samson Argueta MD
[2016-11-27] MEDS: DOXYCYCLINE 100 MG in NS 250 ML IV SCH (11:30)
--- NOTE | 2016-11-27 11:56 | PROGRESS NOTE ---
DATE: 11/27/2016 SUBJECTIVE: Today, Mr. Soni referred to be doing a little better. He was actually sitting up at the edge of the bed with physical therapy at the time we went to see him. OBJECTIVE: Vital signs: Blood pressure is 118/62, pulse 82, respirations 18, temperature is 98.2 degrees. Patient was saturating 99% on face mask. General: Mr. Soni is an 86-year-old male. He was sitting at the edge of the bed. He did not seem to be in unremarkable distress. HEENT: Mucosa is pink and moist. Anicteric. Acyanotic. Neck: Supple. Chest: Air entry was bilaterally reduced. There was some both an expiratory and inspiratory wheezing posteriorly. Cardiovascular: Regular rate and rhythm. There is a PS murmur of about 2/6. There is a metallic click of the aortic metallic valve. Abdomen: Soft, nontender. There is an ostomy on the left lower abdomen with some fecal material. Extremities: No pedal edema. Distal pulses are present. FIRE EATER: Patient is awake, and alert, and oriented. There is no focal neurological deficit. LABORATORY DATA: Hemoglobin is 12.6, hematocrit is 38.1. Chemistry is reviewed. Creatinine is back to 1.2. ASSESSMENT: 1. Fracture to the right femoral neck status post right hip hemiarthroplasty by Dr. Argueta. Today is day one postop. Patient is getting evaluated by physical therapy. 2. Chronic obstructive pulmonary disease exacerbation. We will continue with the bronchodilation, antibiotics, and steroids. 3. Acute hypoxemic respiratory distress. Etiology is multifactorial. I will continue to address. The patient seems to be saturating better today. 4. Bilateral lower lobe infiltrate concerning for pneumonia. We will continue with levofloxacin and doxycycline. 5. 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 INR has to be reversed for surgery. The patient was placed on heparin prior to that. Will continue to bridge with heparin, start the patient on Coumadin yesterday only got 2 mg. I am going to give him 5 mg tonight, recheck on his INR tomorrow, and make adjustments as necessary. 6. Congestive heart failure with preserved ejection fraction. We will continue with the diuretic therapy and adequate blood pressure control. 7. Hypertension, stable. 8. Acute kidney injury, improved. 9. Bifascicular block (left anterior fascicular block and first-degree block). Cardiology is on board. So today, Mr. Soni seems to be doing a little better. He is breathing better. He got his hip surgery yesterday under spinal, and he seems to have tolerated without any major issues. He is getting physical therapy evaluation today. Will continue with his other with the care of his other comorbidities and follow along. cc: Francisco Manjarrez MD
[2016-11-27] MEDS: NORCO-5 PO PRN (16:39)
[2016-11-27] MEDS: COLACE PO SCH (20:38)
[2016-11-27] MEDS: ATIVAN PO SCH (20:38)
[2016-11-27] MEDS: SINGULAIR PO SCH (20:38)
[2016-11-27] MEDS: OXY IR PO PRN (20:48)
[2016-11-27] MEDS ORDERED: COUMADIN PO SCH (21:00)
[2016-11-27] MEDS ORDERED: COUMADIN PO ONE (21:00)
[2016-11-27] MEDS: NS 1,000 ML IV SCH (23:33)
[2016-11-28] MEDS: DOXYCYCLINE 100 MG in NS 250 ML IV SCH ×2
[2016-11-28] MEDS: NORCO-5 PO PRN
[2016-11-28] MEDS: OXY IR PO PRN (03:12)
[2016-11-28] MEDS: TYLENOL PO SCH ×5 (03:12→22:35)
[2016-11-28] MEDS: SOLU-MEDROL IV SCH (03:53)
[2016-11-28 05:31] LABS: HEMATOCRIT 38.6 % (42.0-52.0); HEMOGLOBIN 12.9 g/dL (14.0-18.0); INR 1.12; PROTIME 11.9 Seconds (9.2-11.7)
[2016-11-28] MEDS ORDERED: COUMADIN PO ONE ×3 (05:46→21:00)
--- NOTE | 2016-11-28 07:29 | Diag Imaging Result Doc PS360 ---
EXAM: CHEST-1 VIEW INDICATION: SOB TECHNIQUE: One view COMPARISON: 11/27/2016 FINDINGS: Bilateral interstitial infiltrates continue to improve, especially at the lower lung zones. No new consolidations are identified. Cardiac silhouette is stable. IMPRESSION: Interval improvement. Electronically signed by Kennedy Huang 11/28/2016 7:27 AM
[2016-11-28] MEDS: BROVANA NEB INH SCH (08:00)
[2016-11-28] MEDS: PULMICORT INH SCH ×2 (08:00→19:57)
[2016-11-28] MEDS: BUSPAR PO SCH ×4 (08:17→17:27)
[2016-11-28] MEDS ORDERED: SODIUM CHLORIDE 0.9% 10 ML ONE (08:28)
[2016-11-28] MEDS: LEVAQUIN 500 MG/D5W 500 MG/100 ML IVPB IV SCH (08:39)
[2016-11-28] MEDS: LASIX IV SCH (08:39)
[2016-11-28] MEDS: FERROUS SULFATE PO SCH (08:40)
[2016-11-28] MEDS: NORVASC PO SCH ×2 (08:40→22:35)
[2016-11-28] MEDS: HEPARIN 25,000 UNITS/D5W 25,000 UNIT/250 ML IV.SOLN IV SCH (08:40)
[2016-11-28] MEDS: PERIDEX MT SCH ×2 (08:40→22:35)
[2016-11-28] MEDS: NEURONTIN PO SCH ×2 (08:40→22:37)
[2016-11-28] MEDS: LIPITOR PO SCH (08:40)
[2016-11-28] MEDS: NS 1,000 ML IV SCH ×2 (08:47)
--- NOTE | 2016-11-28 08:59 | PROGRESS NOTE ---
DATE: 11/28/2016 SUBJECTIVE: Mr. Soni is an 86-year-old male, who is postoperative day 2 from a right hip hemiarthroplasty. He has no new complaints. OBJECTIVE: He is a well-developed, well-nourished male. He is alert, oriented, cooperative with the examination. He is in no acute distress. He is resting comfortably at bedside. His vital signs are stable. He is afebrile. His hemoglobin is 12.9, hematocrit is 38.6. His wound is clean, dry, and intact without sign of infection. His calf is soft. His right leg is neurovascularly intact. ASSESSMENT: Stable postoperative day 2 from a right hip hemiarthroplasty. PLAN: We will have him continue working with physical therapy, and we will continue to manage his pain. We are going to change his dressing today, and we will continue to monitor him. Dictated by SHELLY Stroud for Samson Argueta MD cc: SHELLY Stroud MD
--- NOTE | 2016-11-28 17:27 | PROGRESS NOTE ---
DATE: 11/28/2016 SUBJECTIVE: Today Mr. Soni referred to be doing a little better. His IV site had come out and he was slightly bleeding and the nurses had applied some pressure to the IV site. OBJECTIVE: Vital signs: Blood pressure is 120/65, pulse of 104, respiration is 20, temperature 97.9 degrees. General: Mr. Soni is an 86-year-old male. He is in bed. He is not in any distress. HEENT: Mucosa is pink and moist. Anicteric. Acyanotic. Chest: Good air entry bilateral. There are still a few bibasilar crepitations. I did not appreciate any wheezing or any rhonchi but there seems to be a mildly prolonged expiratory phase of respiration. Cardiovascular: Regular rate and rhythm. There is about 2/6 PS murmur. There is also the metallic click of the aortic metallic valve. Abdomen: Soft, nontender. There is an ostomy on the left lower abdomen with some fecal material. Extremities: No pedal edema. Distal pulses are present. SUPERVISOR CEMETERY WORKERS: Patient is awake and alert and oriented x4. There is no focal neurological deficit. LABORATORY DATA: Hemoglobin is 12.9, there is no platelet count. Chemistry is not done today. ASSESSMENT: 1. Fracture to the right femoral neck status post right hip hemiarthroplasty by Dr. Argueta. Today is day 2 postop. Patient is getting physical therapy. Stable. 2. Chronic obstructive pulmonary disease exacerbation. This seems to be improving. We will continue with bronchodilation, antibiotic. I will cut down the steroid now to only 40 of Solu- Medrol daily hoping to transition this to p.o. tomorrow. 3. Acute hypoxemic respiratory distress, improving as we are addressing the different possible etiologies. 4. Bilateral lower lobe infiltrate concerning for pneumonia. Patient is currently on levofloxacin and doxycycline. Today is day 2 on antibiotics. 5. Congestive heart failure with preserved ejection fraction. Controlled. We are going to continue with patient's medications. 6. Hypertension. Controlled. 7. Acute kidney injury. Improved. 8. Bifascicular block (left anterior fascicular block and first-degree block). Stable. Asymptomatic. Cardiology is on board. 9. Aortic metallic valve replacement. Patient is currently on heparin drip as well as getting Coumadin at night. His INR this morning is 1.12 which is too low, so Cardiology has given the patient 10 mg of Coumadin to take tonight and will repeat the INR. 10. Disposition. This is going to depend on the course of patient's hospital stay. I think he is still pretty unstable but he would eventually need to be transitioned to a rehab. cc: Francisco Manjarrez MD
[2016-11-28] MEDS: DOXYCYCLINE PO SCH ×2 (18:18→22:36)
[2016-11-28] MEDS ORDERED: BROVANA NEB ONE (19:17)
[2016-11-28] MEDS: SINGULAIR PO SCH (22:35)
[2016-11-28] MEDS: COLACE PO SCH (22:35)
[2016-11-28] MEDS: ATIVAN PO SCH (22:35)
[2016-11-29] MEDS: HEPARIN 25,000 UNITS/D5W 25,000 UNIT/250 ML IV.SOLN IV SCH ×3 (00:23→16:35)
[2016-11-29] MEDS: TYLENOL PO SCH ×2 (03:42→13:38)
[2016-11-29 04:47] LABS: ALLEN TEST YES; BE 4.7 mmoll (-3.0-3.0); BLOOD TYPE ARTERIAL; DRAW SITE R RADIAL; METHB 0.7 % (0.0-1.5); O2(CT) 15.5 mL/dL (15.0-23.0); PCO2(98.6) 42 mmHg (35-45); PO2(98.6) 101 mmHg (60-100); SAMPLE BLOOD; SAO2 100.7 % (95.0-100.0); THB 11.3 g/dL (11.5-17.4); pH(98.6) 7.45 (7.35-7.45)
[2016-11-29 04:48] LABS: MODALITY CANNULA
[2016-11-29 05:34] LABS: HEMATOCRIT 36.7 % (42.0-52.0); HEMOGLOBIN 12.1 g/dL (14.0-18.0)
[2016-11-29 05:51] LABS: INR 1.49; PROTIME 16.1 Seconds (9.2-11.7)
[2016-11-29] MEDS ORDERED: BROVANA NEB ONE ×2 (07:27→21:45)
[2016-11-29] MEDS: PULMICORT INH SCH ×2 (07:50→21:48)
[2016-11-29] MEDS: BROVANA NEB INH SCH ×2 (07:50→21:48)
--- NOTE | 2016-11-29 07:56 | Diag Imaging Result Doc PS360 ---
CHEST-1 VIEW - 11/29/2016 INDICATION: SOB TECHNIQUE: COMPARISON: 11/28/2016 FINDINGS: There is slight improvement in the ill-defined interstitial infiltrates throughout the lungs diffusely. Stable sternotomy wires. Stable cardiomegaly. No pneumothorax or large effusion. IMPRESSION: Slight improvement in the diffuse interstitial infiltrates suggesting pulmonary edema. No new abnormality. Electronically signed by Ankush Otero 11/29/2016 7:54 AM
[2016-11-29] MEDS: FERROUS SULFATE PO SCH (08:37)
[2016-11-29] MEDS: LEVAQUIN 500 MG/D5W 500 MG/100 ML IVPB IV SCH (08:37)
[2016-11-29] MEDS: LASIX PO SCH (08:38)
[2016-11-29] MEDS: NEURONTIN PO SCH ×2 (08:38→21:02)
[2016-11-29] MEDS: PERIDEX MT SCH ×2 (08:38→21:02)
[2016-11-29] MEDS: DOXYCYCLINE PO SCH ×2 (08:38→21:04)
[2016-11-29] MEDS: SOLU-MEDROL IV SCH (08:38)
[2016-11-29] MEDS: LIPITOR PO SCH (08:38)
[2016-11-29] MEDS: NORVASC PO SCH ×2 (08:38→21:04)
[2016-11-29] MEDS: BUSPAR PO SCH ×3 (08:38→18:12)
--- NOTE | 2016-11-29 12:02 | PROGRESS NOTE ---
DATE: 11/29/2016 Mr. Soni is seen today status post a partial hip replacement. At the present time, he is stable with stable vital signs. Incision is clean and dry. He can be mobilized, full weightbearing. He can be transferred to rehab when bed is available or discharged to home with home therapy by the hospitalist service. He will need to follow up with Dr. Argueta in roughly 1-2 weeks. We will be signing off at this time. cc: Kennedy Yee MD
--- NOTE | 2016-11-29 13:25 | PROGRESS NOTE ---
DATE: 11/29/2016 SUBJECTIVE: Today, Mr. Soni refers to be doing a lot better. Breathing is significantly improved. OBJECTIVE: Vital Signs: Blood pressure is 113/50, pulse is 71, respirations 18, temperature is 98.1 degrees. General: Mr. Soni is an 86-year-old male. He is in bed. He does not seem to be in any distress today. Mucosa is pink and moist. Anicteric. Acyanotic. Neck is supple. Chest: Good air entry bilaterally. Few bibasilar crepitations. Cardiovascular: Regular rate and rhythm. There is about 2/6 PS murmur and also a metallic click of the aortic metallic valve. Abdomen is soft. There is an old ostomy bag on the left with some fecal material. There are also some old infraumbilical surgical scars. Extremities: There is no pedal edema. Distal pulses are present. POLICE COMMISSIONER: The patient is awake and alert and oriented. There is no focal neurological deficit. Extremities: The right hip wound looks clean. There is no bleeding. There is a dressing over the wound. LABORATORY DATA: Hemoglobin is 12.1. ASSESSMENT: 1. Fracture to the right femoral neck, status post right hip arthroplasty. Today is day 3 postop. The patient is getting physical therapy. He seems to be stable. 2. Chronic obstructive pulmonary disease exacerbation, improved. We will going to continue with the bronchodilation, antibiotic, and steroid. 3. Acute hypoxemic respiratory distress, improved. 4. Bilateral lower lobe infiltrates concerning for pneumonia. Patient is on antibiotics; today is day 3. 5. Congestive heart failure with preserved ejection fraction. Chest x-ray shows improvement of the pulmonary edema. 6. Hypertension is controlled. 7. Acute kidney injury, improved. 8. Bifascicular block (left anterior fascicular block and first-degree block) stable. Patient is asymptomatic. Cardiology is on board. I have been told the patient is making some AV blocks as well. We will repeat an EKG and follow up accordingly. 9. Aortic metallic valve replacement. Patient is on heparin drip. Supposed to be getting Coumadin, however, I understand for the past 2 days he has not had any Coumadin. I called the pharmacy myself, and we kind of straightened the orders out, so he should be getting 10 mg of Coumadin tonight. cc: Francisco Manjarrez MD
--- NOTE | 2016-11-29 16:20 | PROGRESS NOTE ---
DATE: 11/29/2016 SUBJECTIVE: Patient continues without chest discomfort or dyspnea on supplemental oxygen via nasal cannula. OBJECTIVE: Vital Signs: Blood pressure 107/68, heart rate 73 and regular. Oxygen saturation 95%. Chest: Auscultation of the chest reveals a few coarse crackles in the bases bilaterally. Cardiac Exam: Reveals a regular rate and rhythm with crisp mechanical 2nd heart sound. No gallop could be appreciated. Extremities: Without edema. LAB DATA: Includes hematocrit 36.7, INR 1.5. IMPRESSIONS: 1. Status post recent right femoral neck fracture and subsequent right hip arthroplasty. Patient now postop day 3. 2. Chronic obstructive pulmonary disease with probably some element of fibrosis. 3. Status post previous mechanical aortic valve replacement. The patient continues on intravenous heparin as Coumadin is being resumed. Patient's previous Coumadin/warfarin dose was 2 mg p.o. daily except 1.5 mg p.o. on Tuesdays and . 4. Hypertension. RECOMMENDATIONS: 1. Continue current cardiovascular regimen unchanged. 2. Continue intravenous heparin. Agree with resumption of Coumadin. Target INR 2.02-3.0. cc: Edgardo Uribe MD
[2016-11-29] MEDS ORDERED: COUMADIN PO ONE (21:00)
[2016-11-29] MEDS: COLACE PO SCH (21:01)
[2016-11-29] MEDS: NORCO-5 PO PRN (21:02)
[2016-11-29] MEDS: ATIVAN PO SCH (21:03)
[2016-11-29] MEDS: SINGULAIR PO SCH (21:04)
[2016-11-30] MEDS: TYLENOL PO SCH ×2 (03:56→12:27)
[2016-11-30 05:31] LABS: ALLEN TEST YES; BE 6.3 mmoll (-3.0-3.0); BLOOD TYPE ARTERIAL; DRAW SITE R RADIAL; METHB 1.2 % (0.0-1.5); O2(CT) 15.8 mL/dL (15.0-23.0); PCO2(98.6) 42 mmHg (35-45); PO2(98.6) 65 mmHg (60-100); SAMPLE BLOOD; THB 12.1 g/dL (11.5-17.4); pH(98.6) 7.47 (7.35-7.45)
[2016-11-30 05:34] LABS: MODALITY CANNULA
[2016-11-30 05:54] LABS: MANUAL DIFF NEEDED? NO
[2016-11-30 06:04] LABS: BASO% 0.2 % (0.0-0.8); EOS# 0.12 X1000 (0.0-0.7); EOS% 1.9 % (0.0-10.0); HEMATOCRIT 36.3 % (42.0-52.0); HEMOGLOBIN 11.8 g/dL (14.0-18.0); IMM GRAN# 0.23 X1000 (0.0-0.04); IMM GRAN% 3.6 % (0.0-0.5); LYMPH# 1.39 X1000 (1.2-3.4); LYMPH% 21.6 % (20.5-51.1); MCH 28.6 PG (27-31); MCHC 32.5 g/dL (33-37); MCV 88.1 FL (81-99); MONO# 0.66 X1000 (0.11-0.59); MONO% 10.2 % (1.7-9.3); MPV 10.7 FL (7.4-10.4); NEUT% 62.5 % (42.2-75.2); PLT 150 X1000 (130-400); RBC 4.12 XMIL (4.7-6.1)
[2016-11-30 06:08] LABS: INR 1.96; PROTIME 21.5 Seconds (9.2-11.7)
[2016-11-30 06:19] LABS: AGAP 10; BUN 33 mg/dL (8-22); CALCIUM 8.6 mg/dL (8.8-10.2); CHLORIDE 106 mmol/L (98-107); COSMO 292; POTASSIUM 3.6 mmol/L (3.5-5.1); SODIUM 143 mmol/L (136-145); TCO2 27 mmol/L (25-35)
[2016-11-30] MEDS ORDERED: HEPARIN 25,000 UNITS/D5W 25,000 UNIT/250 ML IV.SOLN IV SCH (08:00)
[2016-11-30] MEDS: NORVASC PO SCH ×2 (08:21→19:59)
[2016-11-30] MEDS: NEURONTIN PO SCH ×2 (08:21→19:58)
[2016-11-30] MEDS: SOLU-MEDROL IV SCH (08:21)
[2016-11-30] MEDS: LASIX PO SCH (08:21)
[2016-11-30] MEDS: DOXYCYCLINE PO SCH ×2 (08:21→19:57)
[2016-11-30] MEDS: LIPITOR PO SCH (08:21)
[2016-11-30] MEDS: PERIDEX MT SCH ×2 (08:21→19:59)
[2016-11-30] MEDS: FERROUS SULFATE PO SCH (08:21)
[2016-11-30] MEDS: BUSPAR PO SCH ×3 (08:21→17:51)
--- NOTE | 2016-11-30 08:30 | Diag Imaging Result Doc PS360 ---
CHEST-1 VIEW - 11/30/2016 INDICATION: SOB TECHNIQUE: COMPARISON: 11/29/2016 FINDINGS: Stable cardiomegaly and pulmonary vascular congestion. Stable ill-defined interstitial infiltrates diffusely and bilaterally suggesting pulmonary edema. No pneumothorax or large effusion. IMPRESSION: No change from prior. Electronically signed by Ankush Otero 11/30/2016 8:28 AM
[2016-11-30] MEDS: BROVANA NEB INH SCH ×2 (08:37→19:04)
[2016-11-30] MEDS: PULMICORT INH SCH ×2 (08:37→19:05)
[2016-11-30] MEDS: LEVAQUIN 500 MG/D5W 500 MG/100 ML IVPB IV SCH (09:00)
[2016-11-30] MEDS: NORCO-5 PO PRN ×2 (10:37→19:55)
--- NOTE | 2016-11-30 15:44 | PROGRESS NOTE ---
DATE: 11/30/2016 SUBJECTIVE: Today, Mr. Soni refers to be doing fairly good. Has been participating in physical therapy. There is no bleeding. OBJECTIVE: Vital signs: Blood pressure is 138/56, pulse is 65, respirations 20, temperature 97.5 degrees. General: Mr. Soni is an 86-year-old male. He is in bed. He is not in any distress. HEENT: Mucosa is pink and moist. Anicteric. Acyanotic. Neck: Supple. Chest: Air entry is bilaterally reduced, but I did not appreciate any crepitations or rhonchi. Cardiovascular: Regular rate and rhythm. There is a 2/6 PS murmur, and also a metallic click of the aortic metallic valve. Abdomen: Soft, nontender. There is an ostomy bag on the left abdominal wall with some fecal material. There is also some old infra- and supraumbilical surgical scars. Extremity: No pedal edema. Distal pulses are present. Central nervous system: The patient is awake and alert and oriented. There is no focal neurological deficit. skin: Right hip wound is clean. There is no drainage. No bleeding. LABORATORY DATA: 1. WBC is 6.44, hemoglobin is 11.8, platelet count of 150,000. ABGs reviewed. 2. Chemistries also reviewed, unremarkable. ProBNP is down to 788 from 3366. 3. A chest x-ray this morning shows no change. Stable, ill-defined, interstitial infiltrate, diffuse and bilateral, suggesting pulmonary edema. 4. INR this afternoon is 72. ASSESSMENT: 1. Fracture to the right femoral neck, status post right hip arthroplasty. Today is day 4 postop. The patient is getting physical therapy, and there is a plan to transition him to rehab tomorrow. 2. Chronic obstructive pulmonary disease exacerbation, improved. We will continue with bronchodilation, antibiotic and steroid. The patient is currently on IV methylprednisolone. We are going to switch this to p.o. prednisone 20 mg. continue with the current levo and doxycycline. 3. Acute hypoxemic respiratory distress, improved. 4. Bilateral lower lobe infiltrate, concerning for pneumonia. The patient is on antibiotics, today is day 4. We plan to treat this for a total of 7 days. 5. Congestive heart failure with preserved ejection fraction. Chest x-ray continues to show some improvement of the pulmonary edema. We will continue with the heart medications, as well as a diuretic. 6. Hypertension is controlled. 7. Acute kidney injury, improved. 8. Bifascicular block (left anterior fascicular block and first-degree block). The patient is asymptomatic. 9. Aortic valve replacement, on Coumadin therapy. The patient is currently getting bridged with heparin. INR is 1.92. Will give the patient another dose of Coumadin 10 mg. Hopefully, tomorrow his INR is in the therapeutic range and he can safely be discharged to the rehab on his home dose, which was 2 mg alternating with 1 mg. cc: Francisco Manjarrez MD
[2016-11-30] MEDS ORDERED: BROVANA NEB ONE (18:55)
[2016-11-30] MEDS: ATIVAN PO SCH (19:57)
[2016-11-30] MEDS: COLACE PO SCH (19:57)
[2016-11-30] MEDS: SINGULAIR PO SCH (19:58)
[2016-11-30] MEDS: MORPHINE IV PRN (20:43)
[2016-11-30] MEDS ORDERED: COUMADIN PO ONE (21:00)
[2016-12-01] MEDS: NORCO-5 PO PRN ×2 (02:26→14:30)
[2016-12-01] MEDS: TYLENOL PO SCH ×2 (03:48→10:35)
[2016-12-01 04:36] LABS: ALLEN TEST YES; BE 6.6 mmoll (-3.0-3.0); BLOOD TYPE ARTERIAL; DRAW SITE R RADIAL; O2(CT) 16.1 mL/dL (15.0-23.0); PCO2(98.6) 44 mmHg (35-45); PO2(98.6) 71 mmHg (60-100); SAMPLE BLOOD; SAO2 97.1 % (95.0-100.0); THB 12.1 g/dL (11.5-17.4); pH(98.6) 7.46 (7.35-7.45)
[2016-12-01 04:45] LABS: MODALITY CANNULA
[2016-12-01 05:41] LABS: INR 3.52; PROTIME 40.1 Seconds (9.2-11.7)
--- NOTE | 2016-12-01 06:01 | EKG Report ---
Test Performed on : 11/29/2016 11:35:52 AM Test Reason : 2nd degree Heart block Blood Pressure : / mmHG Vent. Rate : 074 BPM Atrial Rate : 074 BPM P-R Int : 346 ms QRS Dur : 130 ms QT Int : 420 ms P-R-T Axes : 083 -40 042 degrees QTc Int : 466 ms Sinus rhythm. with 1st degree AV block. Left axis deviation Left bundle branch block Abnormal ECG When compared with ECG of 26-NOV-2016 05:54, No significant change was found Confirmed by Faye JUAREZ, Justin Honeycutt ([id number]) on 12/01/2016 9:11:03 AM
[2016-12-01] MEDS ORDERED: HEPARIN 25,000 UNITS/D5W 25,000 UNIT/250 ML IV.SOLN IV SCH (06:47)
--- NOTE | 2016-12-01 07:22 | Diag Imaging Result Doc PS360 ---
EXAM: CHEST-1 VIEW INDICATION: SOB TECHNIQUE: One view COMPARISON: 11/30/2016 FINDINGS: Bilateral interstitial infiltrate, worse at the right lung base, is stable. No new consolidation is identified. Cardiac silhouette is stable. IMPRESSION: Stable chest. Electronically signed by Kennedy Huang 12/01/2016 7:19 AM
[2016-12-01] MEDS: BROVANA NEB INH SCH ×2 (07:51→12:47)
[2016-12-01] MEDS: PULMICORT INH SCH (07:51)
[2016-12-01] MEDS ORDERED: PREDNISONE PO SCH (09:00)
[2016-12-01] MEDS: DOXYCYCLINE PO SCH ×2 (10:06→10:09)
[2016-12-01] MEDS: LASIX PO SCH (10:06)
[2016-12-01] MEDS: NEURONTIN PO SCH ×2 (10:06→10:09)
[2016-12-01] MEDS: FERROUS SULFATE PO SCH (10:06)
[2016-12-01] MEDS: BUSPAR PO SCH ×2 (10:06→14:30)
[2016-12-01] MEDS: PERIDEX MT SCH (10:06)
[2016-12-01] MEDS: NORVASC PO SCH (10:06)
[2016-12-01] MEDS: LEVAQUIN 500 MG/D5W 500 MG/100 ML IVPB IV SCH (10:06)
[2016-12-01] MEDS: LIPITOR PO SCH (10:06)
--- NOTE | 2016-12-01 12:07 | DISCHARGE SUMMARY ---
ADMISSION DATE: 11/23/2016 DISCHARGE DATE: 12/01/2016 LENGTH OF STAY: The patient's length of stay is 8 days. DISPOSITION: [facility]. CONSULTATION DURING THIS ADMISSION: 1. Orthopedic was consulted. Patient was seen by Dr. Argueta. 2. Cardiology was consulted. Patient was seen by Dr. Perez. 3. Pulmonary Medicine was consulted. Patient was seen by Dr. Hernandez and Dr. Quan. IMAGING STUDIES OF SIGNIFICANCE: 1. A hip and pelvic x-ray was done on presentation which shows a fracture of the right femoral neck. 2. An echocardiogram was done, which showed an ejection fraction of about 55%. 3. A CT scan of the chest was also done, which showed severe emphysema, severe worsening diffuse background pulmonary interstitial infiltrates suggesting pulmonary edema. INVASIVE PROCEDURES DONE DURING THIS ADMISSION: Right hip hemiarthroplasty was done by Dr. Argueta on 12/01/2016. ADMISSION DIAGNOSES: 1. Right femoral neck fracture. 2. Acute kidney injury. 3. Chronic obstructive pulmonary disease. 4. Anxiety. 5. Coronary artery disease. DIAGNOSES AT THE TIME OF DISCHARGE: 1. Fracture to the right femoral neck status post right hemiarthroplasty. Today is day 5 postoperative. 2. Chronic obstructive pulmonary disease exacerbation, during the hospital stay , improved. 3. Acute hypoxemic respiratory distress. This is improved. 4. Bilateral lower lobe infiltrate concerning for pneumonia. The patient was started on antibiotics. He seems very well improved. He will continue on levofloxacin for a total of 7 days. 5. Acute on chronic congestive heart failure with preserved ejection fraction. Chest x-rays show improvement in the pulmonary edema. Patient will continue with her heart medications as well as the diuretics. 6. Hypertension is controlled. 7. Acute kidney injury, improved. 8. Bifascicular block (left anterior fascicular block and first-degree heart block). Patient is asymptomatic. 9. Aortic valve replacement on Coumadin therapy. INR this morning is 3.52. Patient was on heparin bridged with Coumadin. Heparin has been discontinued this morning. He will not take any Coumadin tonight. He will continue with 2 mg daily and 1.5 on Tuesdays and . PRESENTING COMPLAINT: Right leg pain. HISTORY OF PRESENTING COMPLAINT: Mr. Soni is an 89-year-old male with a history of COPD, coronary on artery disease, who presented after falling at home sustaining a right hip fracture. The patient presented to the emergency department, was evaluated, and a decision was made to admit him for further medical care. During the medical course, he did develop an acute on chronic congestive heart failure and possible COPD exacerbation. It prompted both Cardiology and Pulmonary Medicine evaluation surgery. Surgery was successfully done under spinal anesthesia. Postoperatively, Mr. Soni continues to improve both from the surgical standpoint and from his chest findings. Subsequent chest x-ray revealed improvement in the interstitial infiltrates. A CT scan which was done showed advanced emphysema, and he did receive breathing treatments, steroids, and antibiotics. During the hospital stay, he was also able to do physical therapy. In terms of his anticoagulation, Coumadin was bridged with heparin until this morning. Coumadin was restarted when the surgery was done. He got about 10 mg of Coumadin on 2 days consecutively, and INR became therapeutic. It is actually a little bit over therapeutic. He is not going to take any Coumadin tonight. He will restart his regular dose tomorrow, and he will check on his INR on December 04 at the long term and changes to the medication will be done accordingly. TODAY, HIS VITALS: Blood pressure is 124/53, pulse is 79, respirations 18, temperature 97.8 degrees. The patient is completely asymptomatic. She is, therefore, going to be discharged in stable condition. DISCHARGE MEDICATIONS: 1. Buspirone. 2. Ropinirole 4 mg at bedtime. 3. Gabapentin 400 mg b.i.d. 4. Symbicort inhaler. 5. Ativan 0.5 p.o. at bedtime. 6. Amlodipine 5 mg b.i.d. 7. Atorvastatin 40 mg daily. 8. Coumadin 2 mg p.o. as indicated. 9. Docusate 200 p.o. at bedtime. 10. Doxycycline 100 mg b.i.d. 11. Furosemide 325 p.o. daily. 12. Furosemide 40 mg daily. 13. Hercules 5 mg q.6h p.r.n. 14. Prednisone 20 mg for 3 more days. All the discharge instructions have been discussed with the patient. TIME SPENT: Time spent for discharge is 38 minutes. cc: MD VISH Jonas
[2016-12-01 14:14] VITALS: BP 110/48
--- NOTE | 2016-12-01 18:39 | PROGRESS NOTE ---
DATE: 12/01/2016 SUBJECTIVE: Mr. Soni doing well this morning. His pain was controlled. He says he has been getting out of bed some as well. OBJECTIVE: Right lower extremity exam, dressing is clean, dry, and intact. No erythema or drainage there. Toes go up and down. Has good sensation to light touch the toes. ASSESSMENT: Status post right trochanteric femoral nailing. PLAN: I think Mr. Soni is doing great, I am okay with him being discharged, need see him about 2 weeks in clinic. cc: Samson Argueta MD
== END 2016-12-01 15:01 ==
LOC: ED 16:56 → 4N 23:32 → SUATTDRO 23:32
PROVIDERS: ATTEND Internal Medicine

== ENCOUNTER 2018-10-12 15:45 | Observation (INO) ==
[2018-10-12] MEDS ORDERED: NS 1,000 ML IV ONE ×2 (16:10→20:49)
--- NOTE | 2018-10-12 16:14 | PROVIDER DOCUMENTATION ---
HPI-General Adult - General Stated Complaint: WEAKNESS Time Seen by Provider: 10/12/18 16:00 Source: patient Allergies/Adverse Reactions: Patient Allergies Allergy/AdvReac Type Severity Reaction Status Date / Time No Known Allergies Allergy Verified 10/12/18 16:17 Home Medications: Home Medication List Medication Instructions Recorded Confirmed Last Taken Type Buspirone [Buspar] 15 mg PO BID 01/19/13 10/12/18 10/12/18 History ATORVAstatin [Lipitor] 40 mg PO DAILY 11/23/16 10/12/18 10/12/18 History Albuterol Sulfate [Proair Hfa] 8.5 gm IH Q6H PRN 11/02/17 10/12/18 10/12/18 History Cyanocobalamin (Vitamin B-12) 1,000 mcg PO DAILY 11/02/17 10/12/18 10/12/18 History [Vitamin B12] Doxazosin Mesylate 2 mg PO DAILY 11/02/17 10/12/18 10/12/18 History Ferrous Sulfate 325 mg PO QHS 11/02/17 10/12/18 10/12/18 History Tiotropium [place] Inhaler 18 mcg IH DAILY 11/02/17 10/12/18 11/01/17 08:00 History [Spiriva] Warfarin [Coumadin] 2 mg PO QHS 11/02/17 10/12/18 10/10/18 History Budesonide/Formoterol Inhaler 2 puff INH RTBID inhaler 11/06/17 10/12/18 Rx [Symbicort 80/4.5 Microgm Inhaler] Ropinirole [Requip] 4 mg PO HS tablet 11/06/17 10/12/18 10/11/18 Rx Acetaminophen [Tylenol] 500 mg PO Q6H PRN PRN 12/17/17 10/12/18 Unknown History Warfarin [Coumadin] 1.5 mg PO QHS 12/17/17 10/12/18 10/11/18 History Cholecalciferol (Vit D3) [Vitamin 1,000 unit PO DAILY tablet 12/25/17 10/12/18 10/12/18 Rx D3] Famotidine 20 mg PO BID 10/12/18 10/12/18 10/12/18 History Montelukast Sodium [Singulair] 10 mg PO DAILY 10/12/18 10/12/18 10/12/18 History Quetiapine Fumarate [Seroquel] 12.5 mg PO QHS 10/12/18 10/12/18 10/11/18 History - History of Present Illness -Gen Adult Nature of Presenting Problems: 88 YOM PRESENTS ON THE RECOMMENDATION OF [facility] NURSE FOR "WEAKNESS AND DEHYDRATIO N". HE REPORTS POOR APPETITE AND GENERALIZED WEAKNESS SINCE DC FROM SNF 3 DAYS AGO. HE DENIES FALLS, FEVER, CHILLS, SOB, CP, DIARRHEA. HE DID VOMIT X 1 ON THURSDAY. HE IS ON COUMADIN AND DENIES AND SIGNS OF BLEEDING Location of Pain/Injury: reports: none Pain Radiation: reports: no radiation Quality of Pain: reports: none Severity: reports: mild Onset/Duration: reports: 3 days ago Context/Activities at Onset: reports: none Associated Symptoms: reports: weakness Similar Symptoms Previously?: Yes Recently seen or treated by another doctor?: Yes ([facility] ) Review of Systems - Adult - REVIEW OF SYSTEMS - ADULT Constitutional: reports: no symptoms reported. denies: see HPI, chills, fever, fatique, night sweats, weight gain, weight loss, other Eyes: reports: no symptoms reported. denies: see HPI, discharge, dry eyes, decreased vision, blurred vision, double vision, eye pain, redness, other Ears, Nose, Mouth & Throat: reports: no symptoms reported. denies: see HPI, ear discharge, ear pain, hearing loss, tinnitus, epistaxis, sinus problem, nose pain, loose teeth, mouth/dental pain, mouth swelling, hoarseness, throat pain, throat swelling, other Cardiovascular: reports: no symptoms reported. denies: see HPI, chest pain, edema, heart murmur, irregular heart rate, orthopnea, palpitations, poor circulation, PND, syncope, other Respiratory: reports: no symptoms reported. denies: see HPI, chronic cough, cough, dyspnea on exertion, excessive sputum production, hemoptysis, pleurisy, shortness of breath, wheezing, other Gastrointestinal: reports: see HPI, vomiting. denies: no symptoms reported, abdominal pain, hematemesis, constipation, diarrhea, difficulty swallowing, frequent heartburn, nausea, poor appetite, rectal bleeding, other Genitourinary: reports: no symptoms reported. denies: see HPI, dysuria, discharge, frequency, flank pain, frequent UTI's, hematuria, hesitency, incontin ence, urinary retention, urgency, other Musculoskeletal: reports: see HPI, muscle weakness. denies: no symptoms reported, bone pain, back pain, frequent leg cramps, joint pain, joint swelling, muscle aches, neck pain, other Integumentary: reports: no symptoms reported. denies: see HPI, hives, hair loss, itching, mole changes, nail changes, rash, skin sores/ulcer, skin thickening, other Neurological: reports: no symptoms reported. denies: see HPI, ataxia, dizziness/vertigo, headache/migraines, loss of balance, numbness, paresthesia, seizure, slurred speech, syncope, tremors, other Psychiatric: reports: no symptoms reported. denies: see HPI, anxiety, anti-depressant use, alcohol/drug dependence, depression, emotional problems, insomnia, panic attacks, suicidal thoughts, other Endocrine: reports: no symptoms reported. denies: see HPI, change in skin pigment, excessive sweating, goiter, cold intolerance, heat intolerance, increased hunger, increased thirst, polyuria, other Hematologic/Lymphatic: reports: no symptoms reported. denies: see HPI, blood clots, easy bruising, low blood count, lymphedema, prolonged bleeding, swollen lymph nodes, transfusions, other Allergic/Immunologic: reports: no symptoms reported. denies: see HPI, allergic reactions, allergic rhinitis, asthma, eczema, food allergy, frequent infections, hay fever, hives, positive PPD, urticaria, other Past History - Adult - PAST MEDICAL HISTORY-ADULT Review of Records: reports: Nursing Assessment Review, Social history reviewed & non-contributory. Major Childhood Illnesses: reports: denies history Cardiovascular: reports: CAD, HTN, heart valve problem, hyperlipidemia, [place] (with aortic aneurysm) Respiratory: reports: asthma, COPD Gastrointestinal: reports: GERD, other (rectal mass (no surgery til aneurysm repair); C-DIFF) Obstetrical/Gynecological: reports: denies history Genitourinary: reports: denies history Musculoskeletal: reports: denies history Neurological: reports: denies history Psychiatric: reports: anxiety Endocrine/Immune: reports: denies history Other Conditions: reports: denies history - PRIOR SURGERIES/PROCEDURES Surgical/Procedure History: reports: reviewed, not pertinent, bowel surgery, other (cataract removal, mechanical valve placement, partial removal of rectal mass, colon) - PRIOR HOSPITALIZATIONS Prior Hospitalizations: reports: for other non-related - IMMUNIZATION STATUS Childhood Immunizations: See Nurse Assessment Flu Vaccine: See Nurse Assessment - FAMILY HISTORY Family History: reviewed, not pertinent Physical Exam-General - PHYSICAL EXAM-ADULT Initial Vital Signs Reviewed: Yes - CONSTITUTIONAL General Appearance: appears well, alert, no apparent distress - EYES Eyes: PERRL/EOMI - HEAD, EARS, NOSE, MOUTH & THROAT HENMT: normocephalic/atraumatic, moist mucous membranes, normal ENT inspection - NECK Neck: non-tender, full range of motion, supple - RESPIRATORY Respiratory: chest non-tender, lungs clear - CARDIOVASCULAR Cardiovascular: normal peripheral pulses, regular rate, rhythm - GASTROINTESTINAL (ABDOMEN) Abdominal Exam: normal bowel sounds, non tender, soft - LYMPHATIC Lymphatic: no adenopathy - MUSCULOSKELETAL Back Exam: normal inspection Extremity: normal range of motion, non-tender. negative: normal gait (WEAK) - SKIN Integumentary: normal color, normal turgor, warm/dry - NEUROLOGIC Neurologic: grossly normal - PSYCHIATRIC Psych/Mental Status: normal mood/affect, oriented x 3 Progress - PLAN OF CARE/RESULTS Progress/Plan/Lab Results: Vital Signs - 8 hr 10/12/18 15:52 Temperature 98.5 F Pulse Rate 71 Respiratory Rate 14 Blood Pressure 139/56 O2 Sat by Pulse Oximetry 96 Orders Category Date Time Status Saline Loc NOW Care 10/12/18 16:10 Ordered CHEST-2 VIEWS [RAD] Stat Exams 10/12/18 16:09 Ordered CBC WITH ELECTRONIC DIFF [HEME] Stat Lab 10/12/18 16:09 Uncollected COMPREHENSIVE METABOLIC PANEL [CHEM] Stat Lab 10/12/18 16:09 Uncollected MAGNESIUM [CHEM] Stat Lab 10/12/18 16:09 Uncollected PROTIME WITH INR [COAG] Stat Lab 10/12/18 16:09 Uncollected PTT [COAG] Stat Lab 10/12/18 16:09 Uncollected UA NIMS W/REFLEX CULT PL [URINALYSIS] Stat Lab 10/12/18 16:09 Uncollected 0.9% Sodium Chloride Inj [Ns] 1,000 ml Med 10/12/18 16:10 Ordered IV 125 mls/hr EKG [EKG] Stat Ther 10/12/18 15:58 Ordered 1740: REASSESSED PT WHO DENIES NEW COMPLAINTS, HR NOTED TO NOW BE 43 BP STABLE. WILL REPEAT EKG 175: PT'S DAUGHTER REQUESTED TO SEE DR RICHA JUAREZ TO BEDSIDE. IN AGREEMENT WITH PLAN TO GIVE FLUIDS, PO MEAL, REPEAT EKG DUE TO BRADYCARDIA. RECS TO ADD ORTHOSTATICS 1946: SPOKE WITH CARDIOLOGY. D/W CYNDIE, DISCUSSED EKG CHANGES AND EPSIDOSES OF BRADYCARCIA. HE DOES NOT FEEL THE EKG CHANGES ARE CAUSING THE SYMPTOMS. 1951: D/W DR DUPONT, HE WILL COME SEE THE PATIENT IN THE ER. 1999: DR DUPONT TO BEDSIDE Result Diagrams: 10/12/18 16:40 10/12/18 16:40 - EKG 2 Time of EKG reading by physician:: 18:04 EKG Read and Signed by:: Jimbo Echeverria EKG Interpretation (*Must complete 3 of following elements*): Abnormal Rate: 62 Rhythm: SR WITH MOBITZ TYPE 1 BLOCK THAT IS NEW FROM EARLIER EKG - XRAY 1 XRAY Study: Chest Impression: See EMR Report (EXAM: CHEST-2 VIEWS 10/12/2018 HISTORY: COUGH TECHNIQUE: PA and lateral chest COMMENT: There is pleural thickening particularly in the left apex. There is apparent COPD. There is increased inters titial markings particularly in the bases. These findings were all present on 12/23/2017. IMPRESSION: COPD and pulmonary and pleural fibrosis. Electronically signed by Fidencio Joseph 10/12/2018 4:31 PM 10/12/18 1631 Interpreting Physician: Fidencio Joseph MD Dictated Date/Time: 10/12/18 1630 cc: Phyllis Nova; None,PCP) - CONSULTS/PCP/HOSPITALIST Notification #1 *Consult/PCP/Hospitalist*: DR DUPONT -HOSPITALIST Time Discussed: 19:05 Reason/Comments: CALL CARDIOLOGY #2 Consult: DR AGEE PAGED AT 1920 Time Discussed: 19:40 Consult Disposition: other Departure - Departure Date of Disposition Decision: 10/12/18 Time of Disposition Decision: 20:39 DIAGNOSIS: Mobitz type 1 second degree AV block, Weakness, Lightheadedness Disposition: ADMITTED INPATIENT 09 Certified Medical Emergency: Emergent Condition: Stable Referrals and Follow-Ups: None,PCP [Primary Care Provider] - - Critical Care Note This patient required my direct & personal management of CC.: No Attestation - Physician/ ALEXIS Attestation Patient care was provided by Advanced Practice Provider:: Yes Advanced Practice Provider:: Phyllis Nova Advanced Practice Provider documentation review:: The Mid-level provider documentation, treatment plan and medical decision making was reviewed by the physician who agrees with all treatment and medical decision making by the MLP. The physician spent face to face time with patient:: Yes Advanced Practice Provider documentation review:: Supervising physician onsite and consulted in the evaluation and care of this patient. The physician did have a face to face encounter with the patient.
--- NOTE | 2018-10-12 16:22 | EKG Report ---
Test Performed on : 10/12/2018 4:03:24 PM Test Reason : WEAKNESS Blood Pressure : / mmHG Vent. Rate : 068 BPM Atrial Rate : 068 BPM P-R Int : 300 ms QRS Dur : 128 ms QT Int : 412 ms P-R-T Axes : 014 -40 036 degrees QTc Int : 438 ms Sinus rhythm. with 1st degree AV block. Left axis deviation Left bundle branch block Abnormal ECG When compared with ECG of 24-DEC-2017 18:49, premature atrial complexes. are no longer present Vent. rate has decreased BY 39 BPM Nonspecific T wave abnormality no longer evident in Lateral leads QT has shortened Unconfirmed Result
--- NOTE | 2018-10-12 16:33 | Diag Imaging Result Doc PS360 ---
EXAM: CHEST-2 VIEWS 10/12/2018 HISTORY: COUGH TECHNIQUE: PA and lateral chest COMMENT: There is pleural thickening particularly in the left apex. There is apparent COPD. There is increased interstitial markings particularly in the bases. These findings were all present on 12/23/2017. IMPRESSION: COPD and pulmonary and pleural fibrosis. Electronically signed by Fidencio Joseph 10/12/2018 4:31 PM
[2018-10-12 17:14] LABS: URINE SOURCE CLEAN CATCH
[2018-10-12 17:16] LABS: BILIRUBIN URINE NEGATIVE (NEGATIVE); BLOOD URINE NEGATIVE (NEGATIVE); COLOR YELLOW; GLUCOSE URINE NEGATIVE (NEGATIVE); KETONE URINE NEGATIVE (NEGATIVE); LEUKOCYTES URINE NEGATIVE (NEGATIVE); NITRITE URINE NEGATIVE (NEGATIVE); PH URINE 5.5; PROTEIN URINE TRACE mg/dL (NEGATIVE); SP GRAVITY URINE 1.018; TURBIDITY URINE CLEAR (CLEAR); UROBILINOGEN URINE NORMAL (NORMAL)
[2018-10-12 17:17] LABS: UR EPITHELIAL CELLS <10 /HPF (<10); URINE BACTERIA NEGATIVE /HPF; URINE RBC <10 /HPF (<10); URINE WBC <10 /HPF (<10)
[2018-10-12 17:23] LABS: BASO# 0.04 X1000 (0.0-0.2); BASO% 0.7 % (0.0-0.8); EOS# 0.16 X1000 (0.0-0.7); EOS% 2.9 % (0.0-10.0); HEMATOCRIT 41.4 % (42.0-52.0); HEMOGLOBIN 13.3 g/dL (14.0-18.0); LYMPH# 1.09 X1000 (1.2-3.4); MCH 28.7 PG (27-31); MCHC 32.1 g/dL (33-37); MCV 89.2 FL (81-99); MONO# 0.35 X1000 (0.11-0.59); MONO% 6.4 % (1.7-9.3); MPV 9.7 FL (7.4-10.4); NEUT# 3.82 X1000 (1.4-6.5); PLT 127 X1000 (130-400); RBC 4.64 XMIL (4.7-6.1); RDW 17.1 % (11.5-14.5); WBC 5.46 X1000 (4.8-10.8)
[2018-10-12 17:33] LABS: ALB/GLOB RATIO 1.7; ALBUMIN 3.6 g/dL (3.5-5.0); CALCIUM 8.9 mg/dL (8.8-10.2); CREATININE 1.3 mg/dL (0.7-1.2); MAGNESIUM 1.9 mg/dL (1.5-2.7); POTASSIUM 4.4 mmol/L (3.5-5.1); TOTAL BILIRUBIN 0.6 mg/dL (0.20-1.00); TOTAL PROTEIN 5.7 g/dL (6.3-8.3)
[2018-10-12 17:36] LABS: INR 1.9; PROTIME 22.3 Seconds (11.0-16.0)
[2018-10-12 17:37] LABS: PTT 36.3 Seconds (22.3-41.8)
--- NOTE | 2018-10-12 19:47 | EKG Report ---
Test Performed on : 10/12/2018 6:03:11 PM Test Reason : BRADYCARDIA Blood Pressure : / mmHG Vent. Rate : 062 BPM Atrial Rate : 071 BPM P-R Int : 000 ms QRS Dur : 126 ms QT Int : 424 ms P-R-T Axes : 081 -42 023 degrees QTc Int : 430 ms Sinus rhythm. with 2nd degree AV block (Mobitz I). Left axis deviation Left bundle branch block Abnormal ECG When compared with ECG of 12-OCT-2018 16:03, (Unconfirmed) Sinus rhythm. is now with 2nd degree AV block (Mobitz I). Confirmed by Lucretia Kim MD ([id number]) on 10/13/2018 12:25:18 PM
[2018-10-12] MEDS ORDERED: VENTOLIN HFA INH PRN (20:43)
[2018-10-12] MEDS ORDERED: TYLENOL PO PRN (20:43)
[2018-10-12] MEDS ORDERED: COUMADIN PO SCH ×2 (21:00)
[2018-10-12] MEDS ORDERED: FERROUS SULFATE PO SCH (21:00)
[2018-10-12] MEDS ORDERED: SEROQUEL PO SCH (21:00)
[2018-10-12] MEDS ORDERED: REQUIP PO SCH (21:00)
--- NOTE | 2018-10-12 21:59 | Diag Imaging Result Doc PS360 ---
EXAM: CT ABDOMEN/PELVIS W/O CONTRAST 10/12/2018 HISTORY: nausea, failure to thrive TECHNIQUE: This exam was performed using automated exposure control, adjustment of mA or kV according to patient size, and/or use of iterative reconstruction technique. COMMENT: The current study is compared with the previous examination of 08/30/2018. There are emphysematous changes in the visualized portion of both lungs. There is increased interstitial opacity in the lung bases which were also present at the time the previous study and are probably related to fibrosis. There is dilatation of the distal thoracic aorta to a diameter of over 4 cm. This was also the case at the time the previous study. There is a cyst in the left hepatic lobe which has not changed. There are small stones in the gallbladder. There are multiple renal cysts bilaterally some of which on the left are hyperdense. There are some arterial calcifications in the lower pole of the right kidney. There is an aorto iliac endograft below the level of the renal arteries. There is a descending colostomy in the lower mid left abdomen. The colon and small bowel are not distended although there is a fair amount of stool present in the ascending colon. The urinary bladder is slightly distended. There are no abnormal fluid collections. There has been bilateral hip arthroplasty. There is bilateral spondylolysis at L5. There is grade 1 anterolisthesis of L5 on S1. There is an apparent acute compression fracture of the upper endplate of L3. There is no evidence of retropulsed fragments. The degree of compression appears to be slightly worse than on the previous examination. IMPRESSION: Slightly worsened compression fracture of L3. Thoracic and abdominal aortic aneurysms with abdominal iliac aortic stent graft. Other nonacute findings as described above. Electronically signed by Fidencio Joseph 10/12/2018 9:57 PM
[2018-10-12] MEDS ORDERED: ZOFRAN IV PRN (22:19)
[2018-10-12] MEDS: PEPCID PO SCH (22:42)
[2018-10-12] MEDS: BUSPAR PO SCH (22:42)
--- NOTE | 2018-10-13 00:06 | HISTORY AND PHYSICAL ---
CHIEF COMPLAINT: Decreased ostomy output, weight loss, lack of appetite. HISTORY OF PRESENT ILLNESS: The patient is an 88-year-old male. [facility] but has history of COPD, bilateral hip replacements, hypertension, dementia. He was recently treated in [place] for pneumonia and L3 fracture and subsequent went to rehab. Reportedly was eating well at rehab although not participating very well with therapy. Went home 3 to 4 days ago. Since then has had no appetite. Becomes nauseous with taking his pills or sips of Ensure but has only had 1 episode of vomiting. No clear dysphagia. Family has noted decreased ostomy output. States that his bag was last changed yesterday and there was a fairly minimal amount of yellow liquid stool in the bag. He is tolerating liquids although again states that he has nausea with fairly minimal intake. Denies abdominal pain, bloating. Family does note that his ostomy has darkened over the last 2 to 3 days. Usually bright red pink or a black color. Denies fever, chills. Denies increased cough, dyspnea, dysuria. No recent changes in his medication aside from some pain medication. States that he took 1 tab initially but has been taking half a tab over the last 2 to 3 days. Does endorse some back pain which is chronic since his L3 fracture. No change in that however. REVIEW OF SYSTEMS: Twelve point review of systems negative except as per HPI. ALLERGIES: No known drug allergies . PAST MEDICAL HISTORY: COPD, hypertension, history of GI bleeding, some mild dementia, BPH, hypertension, mechanical aortic valve. PAST SURGICAL HISTORY: Mechanical aortic valve replacement, bilateral hip fracture repairs, total colectomy for benign mass, AAA repair. SOCIAL HISTORY: Patient is a former smoker but quit several years ago. Denies alcohol and illicit drug use . FAMILY HISTORY: Father of unknown cancer. Mother of stomach cancer. LABS: WBC 5.4, hemoglobin 13.3, hematocrit 41.4, platelets 127,000, INR 1.9. Sodium 142, potassium 4.4, BUN 15, creatinine 1.3, glucose 151, magnesium 1.9, AST 13, ALT 6, bilirubin 0.6, alkaline phosphatase 108, troponin negative. Urinalysis unremarkable. IMAGING: Chest x-ray with COPD with fibrosis but no acute process. VITALS: T-max 98.5 degrees, pulse 48 to 74, blood pressure 172/84, O2 saturation 96% on room air. PHYSICAL EXAM: GENERAL: No acute distress chronically ill-appearing. Vitals as above. HEENT: Normocephalic, atraumatic. Dry mucous membranes. No cervical adenopathy. CARDIOVASCULAR: Intermittently bradycardic but regular at the time of my exam. Mechanical click noted. PULMONARY: Decreased air entry throughout but no wheezing, rales or rhonchi. ABDOMEN: Ostomy noted in the left lower abdomen. Small amount of liquid yellow output. Ostomy is dark. Surrounding skin is normal in appearance ostomy nontender, mild tenderness to palpation along most of the right side of his abdomen without rebound or guarding. Slightly decreased bowel sounds. EXTREMITIES: Peripheral pulses decreased but intact. Some chronic dermatitis changes of the legs but no cyanosis or edema. NEUROLOGIC: Cranial nerves grossly intact, global mild weakness but no focal deficits. PSYCHIATRIC: Essentially normal mood and affect oriented to person and place but not time. SKIN: No new appearing rashes or lesions noted. Ostomy as above. ASSESSMENT AND PLAN: 1. Loss of appetite, decreased ostomy output, nausea, adult failure to thrive. Family does endorse some mildly increased confusion since his most recent hospitalization but state that was getting better, state that he is eating well in rehab but has done poorly since he got home. Does have some very modest abdominal tenderness and some decreased bowel sounds and ostomy output. Will obtain CT abdomen pelvis to rule out obstruction or other mechanical issue for his poor p.o. intake. Will give some gentle IV fluids overnight. Discussed with family that this could be dementia related, failure to thrive and poor p.o. intake related to that in which case would likely be not a whole lot we can do other than potentially a trial of an appetite stimulant. Did discuss the possibility of going to rehab but they did not want to go that route. Stated that he had more issues with confusion and agitation at rehab and did not do as well with therapy there. They do want to resume home health at discharge. 2. Chronic obstructive pulmonary disease. No sign exacerbation at this time. Monitor, give nebs as needed. 3. Mechanical aortic valve. Patient with very slightly subtherapeutic INR. Will get him back on his warfarin and monitor. Family did state that he had missed a couple doses of his home warfarin over last couple days. 4. Hypertension. We will restart home medications and see what he does. 5. Second-degree type [address] Anderson when patient was in emergency room . He does not think any acute intervention from a cardiac standpoint is necessary. Patient without any chest pain or dyspnea to suggest acute process. 6. Chronic kidney disease 3 creatinine stable from previous. 7. Benign prostatic hypertrophy. Continue home doxazosin for now. Did endorse some intermittent mild dizziness but no sign orthostasis in emergency room . 8. Bradycardia. Patient with quite variable heart rate. Intermittently bradycardic in emergency room and during my exam. Overt heart rate did not appear to have any clear relation to patient's symptoms. Was bradycardic at times during my exam and had no increase in dyspneas, no chest pain, dyspnea, diaphoresis, or other sign of symptomatic bradycardia. Blood pressure remained stable regardless of his heart rate. 9. Chronic pain. Once patient's medications are reconciled will likely go ahead restart his home pain medicine. 10. Hyperglycemia. No previous history of diabetes. Will check A1c and follow glucoses. 11. Dementia reportedly mild by history but given family reports of increased confusion and what sounds like delirium during recent rehab stay suspect he is at least moderate. 12. Abdominal aortic aneurysm. Patient status post repair of large aneurysm but family report that they believe he has at least 1 other aneurysm that is being monitored. CT abdomen above. No obvious large pulsatile mass on exam.
[2018-10-13] MEDS ORDERED: HALDOL IM PRN (01:19)
[2018-10-13] MEDS ORDERED: HALDOL IV PRN (03:49)
[2018-10-13 06:55] LABS: BASO# 0.04 X1000 (0.0-0.2); BASO% 0.7 % (0.0-0.8); EOS# 0.21 X1000 (0.0-0.7); EOS% 3.6 % (0.0-10.0); HEMATOCRIT 41.8 % (42.0-52.0); HEMOGLOBIN 13.5 g/dL (14.0-18.0); LYMPH% 22.5 % (20.5-51.1); MCH 28.5 PG (27-31); MCHC 32.3 g/dL (33-37); MCV 88.4 FL (81-99); MONO# 0.45 X1000 (0.11-0.59); MONO% 7.8 % (1.7-9.3); MPV 9.9 FL (7.4-10.4); NEUT# 3.77 X1000 (1.4-6.5); NEUT% 65.4 % (42.2-75.2); PLT 132 X1000 (130-400); RBC 4.73 XMIL (4.7-6.1); RDW 16.9 % (11.5-14.5); WBC 5.77 X1000 (4.8-10.8)
[2018-10-13 07:02] LABS: HEMOGLOBIN A1C 5.2 % (4.8-6.0)
[2018-10-13 07:03] LABS: AGAP 9; BUN 13 mg/dL (8-22); CALCIUM 9.2 mg/dL (8.8-10.2); CHLORIDE 113 mmol/L (98-107); COSMO 293; ESTIMATED GFR > 60; GLUCOSE 98 mg/dL (70-104); MAGNESIUM 1.7 mg/dL (1.5-2.7); POTASSIUM 3.8 mmol/L (3.5-5.1); SODIUM 147 mmol/L (136-145); TCO2 25 mmol/L (25-35)
--- NOTE | 2018-10-13 07:26 | EKG Report ---
Test Performed on : 10/13/2018 06:29:55 AM Test Reason : bradycardia Blood Pressure : / mmHG Vent. Rate : 086 BPM Atrial Rate : 086 BPM P-R Int : 320 ms QRS Dur : 128 ms QT Int : 382 ms P-R-T Axes : 055 -28 043 degrees QTc Int : 457 ms Sinus rhythm. with 1st degree AV block. with premature atrial complexes. with aberrant conduction. Left bundle branch block Abnormal ECG When compared with ECG of 12-OCT-2018 18:03, (Unconfirmed) aberrant conduction. is now present Sinus rhythm. is no longer with 2nd degree AV block (Mobitz I). Confirmed by Lucretia Kim MD ([id number]) on 10/13/2018 12:25:38 PM
[2018-10-13] MEDS ORDERED: SPIRIVA INH SCH (07:30)
[2018-10-13] MEDS ORDERED: SYMBICORT 80/4.5 MICROGM INHALER INH SCH (07:30)
[2018-10-13] MEDS: BUSPAR PO SCH (08:27)
[2018-10-13] MEDS: PEPCID PO SCH (08:27)
[2018-10-13] MEDS ORDERED: VITAMIN B-12 PO SCH (09:00)
[2018-10-13] MEDS ORDERED: CARDURA PO SCH (09:00)
[2018-10-13] MEDS ORDERED: LIPITOR PO SCH (09:00)
[2018-10-13] MEDS ORDERED: SINGULAIR PO SCH (09:00)
[2018-10-13] MEDS ORDERED: VITAMIN D PO SCH (09:00)
[2018-10-13 11:19] LABS: INR 1.94; PROTIME 22.6 Seconds (11.0-16.0)
[2018-10-13 11:56] VITALS: BP 129/50
--- NOTE | 2018-10-13 12:26 | DISCHARGE SUMMARY ---
ADMISSION DATE: 10/12/2018 DISCHARGE DATE: 10/13/2018 PERTINENT PROCEDURES: Abdomen and pelvis CT slightly worsening compression fracture of L3, thoracic and abdominal aortic aneurysms with abdominal iliac aortic stent graft. DISCHARGE DIAGNOSES: 1. Loss of appetite, decreased ostomy output, nausea, adult failure to thrive. The patient was given IV hydration overnight. I did discuss the possibility of going to rehab, but the family does not want to go that route. They felt that he was more confused and agitated at rehab and they want to resume home health. 2. COPD. No exacerbation. 3. Mechanical aortic valve. Continue Coumadin. 4. Hypertension. Continue home medications. 5. Second-degree type 1 heart block. This was discussed with Dr. Anderson in the ED. He did not think any acute intervention was necessary. He is having no chest pain or dyspnea to suggest acute process. 6. Chronic kidney disease, stage 3, stable. 7. Benign prostatic hypertrophy. Continue home medications. 8. Bradycardia, asymptomatic. 9. Chronic pain. Continue home medications. 10. Dementia reported by family with some increased confusion and what sounded like delirium during his recent rehab stay. 11. Abdominal aortic aneurysm. He is status post repair of a large aneurysm. There was no obvious large pulsatile mass. He will continue to follow up with his regular physician as this is currently being monitored. HOSPITAL COURSE: Briefly, Mr. Soni is an 88-year-old male. [facility] with a history of COPD, bilateral hip replacements, hypertension, dementia. He was recently treated in [place] for pneumonia and an L3 compression fracture and went to rehab. Reportedly he was eating well at rehab and not participating very well with therapy. He went home 3 to 4 days prior and since then he has had no appetite. He becomes nauseous when taking pills or sips of Ensure but only had one episode of vomiting. There was no clear dysphagia. Family noted a decrease in his ostomy output. He was tolerating liquids. He denies any abdominal pain or bloating. He was admitted overnight and given some intravenous hydration. I did speak to the family about rehab, however, they do not want to go that route, they want him to be discharged back home and resume his home health. VITAL SIGNS: At time of discharge, temperature is 98 degrees, heart rate 91, respirations 16, blood pressure 157/74, O2 is 99% on 2 L nasal cannula. DISCHARGE DIET: Healthy heart. DISCHARGE MEDICATIONS: 1. Coumadin 2 mg p.o. at bedtime. 2. Coumadin 1.5 mg p.o. at bedtime. 3. Ferrous sulfate 325 mg p.o. at bedtime. 4. Seroquel 12.5 mg p.o. at bedtime. 5. BuSpar 15 mg p.o. b.i.d. 6. Cardura 2 mg p.o. daily. 7. Pepcid 20 mg p.o. b.i.d. 8. Lipitor 40 mg p.o. daily. 9. ProAir 8.5 g inhaled q. 6 hours p.r.n. 10. Singulair 10 mg p.o. daily. 11. Spiriva 18 mcg inhaled daily. 12. Tylenol 500 mg p.o. q. 6 hours p.r.n. 13. Vitamin B12 1000 mcg p.o. daily. 14. Requip 4 mg p.o. at bedtime. 15. Symbicort 80-4.5 mcg inhaler 2 puffs inhaled RT b.i.d. 16. Vitamin D3 1000 units p.o. daily. FOLLOWUP: Mr. Soni is being discharged back home with home health with [facility]. Family was offered rehab, however they feel that he would be more stable at home with his home health. He is to take all medications as prescribed. [facility] 7 to 10 days. He can return to the ED or call 911 for any worsening of symptoms. Dictated by MANUEL Jones for Jay Lemon MD Addendum: Patient is seen and examined by myself. Agree with MANUEL note. It reflects my assessment and plan. Patient is being discharged in stable condition. Will be seen by PCP in a week. Will arrange home health service for him. cc: Jay Lemon MD [facility]
[2018-10-13] MEDS ORDERED: COUMADIN PO SCH (21:00)
--- NOTE | 2018-11-11 10:14 | ED EKG INTERP ---
This chart was entered by Kiki Diaz Scribe, acting as scribe for Jimbo Echeverria MD. EKG Interpretation - EKG Time of EKG reading by physician:: 16:03 EKG Read and Signed by:: Jimbo Echeverria EKG Interpretation (*Must complete 3 of following elements*): Abnormal Rate: 68 Rhythm: sinus rhythm with 1st degree AV block Elliott: left QRS: LBB Comments: abnormal ECG Attestation - Physician/ ALEXIS Attestation Patient care was provided by Advanced Practice Provider:: Yes Advanced Practice Provider:: Phyllis Nova Advanced Practice Provider documentation review:: The Mid-level provider documentation, treatment plan and medical decision making was reviewed by the physician who agrees with all treatment and medical decision making by the MLP. The physician spent face to face time with patient:: No Advanced Practice Provider documentation review:: Supervising physician onsite and consulted in the evaluation and care of this patient. The physician did not have a face to face encounter with the patient. This chart was documented by the indicated scribe, (Kiki Diaz Scribe) and accurately reflects the services I performed and decisions made by , Jimbo Echeverria MD, as attested by the provider's signature.
== END 2018-10-13 13:33 | disposition home health service (06) ==
LOC: SUPCPDRO → 2N 15:45 → ED 15:45 → SUATTDRO 20:52 → 2N 21:11
PROVIDERS: ATTEND Internal Medicine

== ENCOUNTER 2019-03-13 17:22 | Inpatient (IN) ==
[2019-03-13] MEDS ORDERED: NS 1,000 ML IV ONE (18:05)
[2019-03-13] MEDS ORDERED: ZOSYN 3.375 GM in NS 50 ML IV ONE (18:05)
[2019-03-13 18:10] LABS: ALLEN TEST YES; BE -0.6 mmoll (-3.0-3.0); BLOOD TYPE ARTERIAL; HCO3-(ACT) 24.2 mmoll (20.0-26.0); METHB 1.2 % (0.0-1.5); O2(CT) 19.5 mL/dL (15.0-23.0); PCO2(98.6) 29 mmHg (35-45); PO2(98.6) 50 mmHg (60-100); SAMPLE BLOOD; SAO2 91.5 % (95.0-100.0); THB 15.8 g/dL (11.5-17.4); pH(98.6) 7.48 (7.35-7.45)
[2019-03-13 18:20] LABS: MODALITY CANNULA
[2019-03-13 18:22] LABS: O2HB 88.1 % (95.0-99.0)
--- NOTE | 2019-03-13 18:22 | Diag Imaging Result Doc PS360 ---
EXAM: CHEST-1 VIEW 03/13/2019 HISTORY: sob / mona TECHNIQUE: Erect AP portable at 1803 COMMENT: There is dense bilateral alveolar opacity in the lung bases which was not the case on 10/12/2018. There is apparent COPD. IMPRESSION: Pulmonary edema and/or pneumonia. Electronically signed by Fidencio Joseph 03/13/2019 6:19 PM
--- NOTE | 2019-03-13 18:35 | PROVIDER DOCUMENTATION ---
This chart was entered by Madai Ruvalcaba Scribe, acting as scribe for Jeannette Reeves MD. HPI-Respiratory General - General Chief Complaint: SEPSIS ALERT - D Stated Complaint: coughing up blood Time Seen by Provider: 03/13/19 18:04 Source: patient, family Allergies/Adverse Reactions: Patient Allergies Allergy/AdvReac Type Severity Reaction Status Date / Time No Known Allergies Allergy Verified 03/13/19 18:31 Home Medications: Home Medication List Medication Instructions Recorded Confirmed Last Taken Type Buspirone [Buspar] 15 mg PO BID 01/19/13 03/13/19 03/13/19 History ATORVAstatin [Lipitor] 40 mg PO DAILY 11/23/16 03/13/19 03/13/19 History Albuterol Sulfate [Proair Hfa] 8.5 gm IH Q6H PRN 11/02/17 03/13/19 03/13/19 History Cyanocobalamin (Vitamin B-12) 1,000 mcg PO DAILY 11/02/17 03/13/19 03/13/19 History [Vitamin B12] Doxazosin Mesylate 2 mg PO DAILY 11/02/17 03/13/19 03/13/19 History Ferrous Sulfate 325 mg PO QHS 11/02/17 03/13/19 03/13/19 History Tiotropium [place] Inhaler 18 mcg IH DAILY 11/02/17 03/13/19 03/13/19 History [Spiriva] Warfarin [Coumadin] 2 mg PO QHS 11/02/17 03/13/19 03/13/19 History Budesonide/Formoterol Inhaler 2 puff INH RTBID inhaler 11/06/17 03/13/19 03/13/19 Rx [Symbicort 80/4.5 Microgm Inhaler] Ropinirole [Requip] 4 mg PO HS tablet 11/06/17 03/13/19 03/13/19 Rx Cholecalciferol (Vit D3) [Vitamin 1,000 unit PO DAILY tablet 12/25/17 03/13/19 03/13/19 Rx D3] Famotidine 20 mg PO BID 10/12/18 03/13/19 03/13/19 History Montelukast Sodium [Singulair] 10 mg PO DAILY 10/12/18 03/13/19 03/13/19 History - History of Present Illness-Resp Nature of Presenting Problem: pt is a 88 yr old male presenting with 1 day complaint of increased shortness of breath, pt reports he is on 2l home o2, increased to 4l today without relief, pt admits bloody sputum, no fever/chills, no chest pain. pt denies any other co mplaints Severity in ED: reports: moderate Onset/Duration: reports: this morning Timing: reports: still present Exposure: reports: unknown cause Cough Quality/Degree: reports: moderate, productive cough, blood streaked sputum Episode Frequency: no prior episodes Current Respiratory Medication Therapy: Initiated see nurses note Modifying Factors: improves with: oxygen (no improvement) Associated Symptoms: reports: cough, shortness of breath. denies: fever/chills Similar Symptoms Previously?: No Recently seen or treated by another doctor?: No Review of Systems - Adult - REVIEW OF SYSTEMS - ADULT Constitutional: reports: fatique. denies: chills, fever Eyes: reports: no symptoms reported Ears, Nose, Mouth & Throat: reports: no symptoms reported Cardiovascular: denies: chest pain, palpitations, syncope Respiratory: reports: cough, dyspnea on exertion, hemoptysis, shortness of breath Gastrointestinal: denies: abdominal pain, diarrhea, nausea, vomiting Genitourinary: reports: no symptoms reported Musculoskeletal: reports: no symptoms reported Integumentary: reports: no symptoms reported Neurological: denies: dizziness/vertigo, headache/migraines, syncope Psychiatric: reports: no symptoms reported Endocrine: reports: no symptoms reported Hematologic/Lymphatic: reports: no symptoms reported Allergic/Immunologic: reports: no symptoms reported All Other Systems: Reviewed and Negative Past History - Adult - PAST MEDICAL HISTORY-ADULT Review of Records: reports: Old Records Reviewed Major Childhood Illnesses: reports: denies history Cardiovascular: reports: CAD, HTN, heart valve problem, hyperlipidemia, NE (with aortic aneurysm) Respiratory: reports: asthma, COPD Gastrointestinal: reports: GERD, other (rectal mass (no surgery til aneurysm repair); C-DIFF) Obstetrical/Gynecological: reports: denies history Genitourinary: reports: denies history Musculoskeletal: reports: denies history Neurological: reports: denies history Psychiatric: reports: anxiety Endocrine/Immune: reports: denies history Other Conditions: reports: denies history - PRIOR SURGERIES/PROCEDURES Surgical/Procedure History: reports: reviewed, not pertinent, bowel surgery, other (cataract removal, mechanical valve placement, partial removal of rectal mass, colon) - PRIOR HOSPITALIZATIONS Prior Hospitalizations: reports: for other non-related - IMMUNIZATION STATUS Childhood Immunizations: See Nurse Assessment Flu Vaccine: See Nurse Assessment - FAMILY HISTORY Family History: reviewed, not pertinent - SOCIAL HISTORY Smoking: quit greater than 1 year (2013) Living Situation: alone Physical Exam-General - PHYSICAL EXAM-ADULT Initial Vital Signs Reviewed: Yes - CONSTITUTIONAL General Appearance: alert - EYES Eyes: PERRL/EOMI - HEAD, EARS, NOSE, MOUTH & THROAT HENMT: normocephalic/atraumatic, moist mucous membranes, normal ENT inspection - NECK Neck: non-tender, full range of motion, supple, normal inspection - RESPIRATORY Respiratory: chest non-tender, respiratory distress, rhonchi (diffuse, audible rhonchi), increased rate, other (bloody sputum noted during exam) - CARDIOVASCULAR Cardiovascular: normal peripheral pulses, tachycardia - GASTROINTESTINAL (ABDOMEN) Abdominal Exam: normal bowel sounds, other (mid line abdominal scar, ostomy to left abd) - LYMPHATIC Lymphatic: no adenopathy - MUSCULOSKELETAL Back Exam: normal inspection Extremity: normal range of motion, non-tender, normal gait, normal inspection - SKIN Integumentary: other (skin changes to BLE consitant with vascular disease changes) - NEUROLOGIC Neurologic: grossly normal, no motor/sensory deficits - PSYCHIATRIC Psych/Mental Status: normal mood/affect Progress - PLAN OF CARE/RESULTS Progress/Plan/Lab Results: Orders Category Date Time Status Admit - [facility] Routine AdmDCTranf 03/13/19 20:48 Active Bedrest [Activity Type] ORDERED Care 03/13/19 20:50 Completed Cardiac Monitoring DIRECTED Care 03/13/19 17:49 Completed IV Insertion ORDERED Care 03/13/19 17:49 Completed Notify MD of + Sepsis Screen NOW Care 03/13/19 17:49 Completed Notify Physician As Ordered Care 03/13/19 17:49 Completed Vital Signs Order Q 4-HR ASSESS Care 03/13/19 20:49 Active Regular Diet Diet 03/13/19 20:50 Completed CHEST-1 VIEW [RAD] Stat Exams 03/13/19 17:49 Completed ABG [RESP] Routine Lab 03/13/19 17:55 Completed BLOOD CULTURE [BLDCUL] Stat Lab 03/13/19 18:19 Completed CBC WITH DIFF [HEME] Stat Lab 03/13/19 18:05 Completed CK PROFILE [SP CHEM] Stat Lab 03/13/19 18:05 Completed COMPREHENSIVE METABOLIC PANEL [CHEM] Stat Lab 03/13/19 18:05 Completed LACTATE, PLASMA [CHEM] Lab 03/13/19 21:15 Completed LACTATE, PLASMA [CHEM] Lab 03/14/19 00:45 Completed LACTATE, PLASMA [CHEM] Q3H Lab 03/13/19 18:05 Completed PROTIME WITH INR [COAG] Stat Lab 03/13/19 18:05 Completed PTT [COAG] Stat Lab 03/13/19 18:05 Completed SPUTUM CULTURE WITH GRAM STAIN [RM] Routine Lab 03/13/19 18:05 Completed TROPONIN T HIGH SENSITIVITY Stat Lab 03/13/19 18:05 Completed URINALYSIS W/POSS RFLX CULT [URINALYSIS] Stat Lab 03/13/19 18:55 Completed 0.9% Sodium Chloride Inj [Ns] 1,000 ml Med 03/13/19 18:05 Discontinued IV 999 mls/hr Piperacillin/Tazobactam [Zosyn] 3.375 gm Med 03/13/19 18:05 Discontinued 0.9% Sodium Chloride Inj [Ns] 50 ml IV NOW BIPAP Stat Oth 03/13/19 18:18 Active Oxygen Device Stat Oth 03/13/19 17:49 Completed Transfer/Admit Order [TRANSFER] Routine Transfer 03/13/19 20:48 Completed Result Diagrams: 03/19/19 07:11 03/19/19 07:11 - REASSESSMENT Reassessment #1 Time Reassessed: 18:29 Status: improving (pt now with bipap- resp distress improved and o2 sats improved. blood gas showing hypoxemia.) - EKG 1 Time of EKG reading by physician:: 17:54 EKG Read and Signed by:: Jeannette Reeves EKG Interpretation (*Must complete 3 of following elements*): Abnormal Rate: 112 [place]: left QRS: LBB Prior EKG Comparison: unchanged from prior (LBB unchanged from 10/12/18) - XRAY 1 XRAY Study: Chest Impression: Abnormal (Signed EXAM: CHEST-1 VIEW 03/13/2019 HISTORY: sob / ronchi TECHNIQUE: Erect AP portable at 1803 COMMENT: There is dense bilateral alveolar opacity in the lung bases which was not the case on 10/12/2018. There is apparent COPD. IMPRESSION: Pulmonary edema and/or pneumonia. Electronically signed by Fidencio Joseph 03/13/2019 6:19 PM 03/13/191818 Interpreting Physician: Fidencio Joseph MD Dictated Date/Time: 03/13/191818 cc: Vinayak Marino DO; None,PCP) - CONSULTS/PCP/HOSPITALIST Notification #1 *Consult/PCP/Hospitalist*: Dr. Michelle accepts Time Discussed: 20:35 Consult Disposition: Will see in ED, Admit Departure - Departure Date of Disposition Decision: 03/13/19 Time of Disposition Decision: 20:00 DIAGNOSIS: Pneumonia, Hypoxemia, Aspiration pneumonia, Respiratory distress Disposition: ADMITTED INPATIENT 09 Certified Medical Emergency: Emergent Condition: Stable - Critical Care Note This patient required my direct & personal management of CC.: Yes Total Time (mins): 35 Critical Care Statement: This patient required my direct personal management to treat or rule out processes, the absence of which, could potentiallly result in sudden, clinically significant life or limb threatening deterioration. Attestation - Physician/ ALEXIS Attestation Patient care was provided by Advanced Practice Provider:: No The physician spent face to face time with patient:: Yes Advanced Practice Provider documentation review:: Supervising physician onsite and consulted in the evaluation and care of this patient. The physician did have a face to face encounter with the patient. This chart was documented by the indicated scribe, (Madai Ruvalcaba Scribe) and accurately reflects the services I performed and decisions made by me, Jeannette Reeves MD, as attested by the provider's signature.
[2019-03-13 18:41] LABS: BASO# 0.04 X1000 (0.0-0.2); BASO% 0.6 % (0.0-0.8); EOS# 0.13 X1000 (0.0-0.7); EOS% 1.8 % (0.0-10.0); HEMATOCRIT 49.9 % (42.0-52.0); HEMOGLOBIN 15.7 g/dL (14.0-18.0); IMM GRAN# 0.02 X1000 (0.0-0.04); IMM GRAN% 0.3 % (0.0-0.5); LYMPH# 0.86 X1000 (1.2-3.4); MCH 28.1 PG (27-31); MCHC 31.5 g/dL (33-37); MCV 89.3 FL (81-99); MONO# 0.26 X1000 (0.11-0.59); MONO% 3.6 % (1.7-9.3); MPV 10.4 FL (7.4-10.4); NEUT# 5.83 X1000 (1.4-6.5); NEUT% 81.7 % (42.2-75.2); PLT 157 X1000 (130-400); RBC 5.59 XMIL (4.7-6.1); RDW 16.1 % (11.5-14.5); WBC 7.14 X1000 (4.8-10.8)
[2019-03-13 18:50] LABS: INR 2.38; PROTIME 26.6 Seconds (11.0-16.0)
[2019-03-13 18:51] LABS: PTT 34.7 Seconds (22.3-41.8)
[2019-03-13 18:58] LABS: URINE SOURCE CLEAN CATCH
[2019-03-13 19:03] LABS: BILIRUBIN URINE NEGATIVE (NEGATIVE); BLOOD URINE TRACE (NEGATIVE); COLOR YELLOW; GLUCOSE URINE NEGATIVE (NEGATIVE); KETONE URINE NEGATIVE (NEGATIVE); LEUKOCYTES URINE NEGATIVE (NEGATIVE); NITRITE URINE NEGATIVE (NEGATIVE); PROTEIN URINE TRACE mg/dL (NEGATIVE); SP GRAVITY URINE 1.016; TURBIDITY URINE CLEAR (CLEAR); UR EPITHELIAL CELLS <10 /HPF (<10); URINE BACTERIA NEGATIVE /HPF; URINE RBC <10 /HPF (<10); URINE WBC <10 /HPF (<10); UROBILINOGEN URINE NORMAL (NORMAL)
[2019-03-13 19:03] LABS: ALB/GLOB RATIO 1.4; ALBUMIN 3.8 g/dL (3.5-5.0); CALCIUM 9.1 mg/dL (8.8-10.2); CREATININE 1.2 mg/dL (0.7-1.2); POTASSIUM 4.8 mmol/L (3.5-5.1); TOTAL BILIRUBIN 0.87 mg/dL (0.20-1.00); TOTAL PROTEIN 6.5 g/dL (6.3-8.3)
[2019-03-13] MEDS ORDERED: DUONEB (A & A) INH PRN (20:51)
[2019-03-13] MEDS ORDERED: LASIX IV SCH (21:00)
[2019-03-13] MEDS ORDERED: SOLU-MEDROL IV SCH (21:00)
[2019-03-13] MEDS ORDERED: LEVAQUIN 500 MG/D5W 500 MG/100 ML IVPB IV ONE (22:04)
[2019-03-13] MEDS ORDERED: DUONEB (A & A) INH SCH (23:30)
[2019-03-14] MEDS ORDERED: DUONEB (A & A) INH PRN (00:15)
--- NOTE | 2019-03-14 01:13 | EKG Report ---
Test Performed on : 03/14/2019 00:19:25 AM Test Reason : elevated troponin Blood Pressure : / mmHG Vent. Rate : 098 BPM Atrial Rate : 102 BPM P-R Int : 000 ms QRS Dur : 116 ms QT Int : 392 ms P-R-T Axes : 000 -52 081 degrees QTc Int : 500 ms Accelerated Junctional rhythm. Left axis deviation Septal infarct (cited on or before 13-MAR-2019) T wave abnormality, consider inferolateral ischemia Abnormal ECG When compared with ECG of 13-MAR-2019 17:54, (Unconfirmed) Previous ECG has undetermined rhythm, needs review T wave inversion now evident in Anterior leads Unconfirmed Result
[2019-03-14] MEDS ORDERED: STERILE WATER INJ. ONE (02:30)
[2019-03-14] MEDS: NITROGLYCERIN TOP SCH ×4 (02:31→19:42)
[2019-03-14] MEDS: SOLU-MEDROL IV SCH ×3 (02:31→19:30)
[2019-03-14] MEDS: PROTONIX IV SCH ×2 (02:31→02:33)
[2019-03-14] MEDS: SODIUM CHLORIDE 0.9% INJ SCH (02:33)
[2019-03-14] MEDS: DUONEB (A & A) INH SCH ×6 (03:03→23:14)
--- NOTE | 2019-03-14 05:13 | HISTORY AND PHYSICAL ---
CHIEF COMPLAINT: Shortness of breath. HISTORY OF PRESENT ILLNESS: Ms. Petros Soni is an 88-year-old male who has a history of COPD, mechanical aortic valve hypertension, dementia, benign prostatic hypertrophy, and chronic kidney disease, who presents to the hospital because of shortness of breath along with productive cough. No chest pain. Patient describes some hemoptysis. X-ray of the chest done at the time of presentation did show evidence of pulmonary edema and/or pneumonia as well as evidence of COPD. ER records indicate the patient is on 2 L of oxygen at home, but had to increase it up to 4 L prior to presentation and was without relief. The patient was seen and evaluated in the ER. He has been placed on BiPAP, and will now be admitted to the floor now for further management. PAST MEDICAL HISTORY: COPD, hypertension, history of GI bleed, history of dementia, benign prostatic hypertrophy, hypertension, and mechanical aortic valve. PAST SURGICAL HISTORY: He had mechanical aortic valve replacement, bilateral hip fracture repair, total colectomy for benign mass, and abdominal aortic aneurysm repair. SOCIAL HISTORY: The patient is a former smoker having quit several years ago. No current history of alcohol or drug use. FAMILY HISTORY: Positive for cancer. ALLERGIES: No known drug allergies. MEDICATIONS: His medications include the followin. Buspirone 50 mg p.o. twice a day. 2. Atorvastatin 40 mg p.o. daily. 3. Albuterol sulfate. 4. ProAir HFA as directed. 5. Vitamin B12 1000 mcg p.o. daily. 6. Doxazosin 2 mg p.o. daily. 7. Ferrous sulfate 325 mg p.o. once a day. 8. Spiriva inhalation daily. 9. Warfarin 2 mg p.o. at bedtime. 10. Symbicort 80/4.5 2 puffs twice a day. 11. Requip 4 mg p.o. at bedtime. 12. Vitamin D 1000 units p.o. daily. 13. Famotidine 20 mg p.o. twice a day. 14. Singular 10 mg p.o. daily. REVIEW OF SYSTEMS: Constitutional: No fever. CLAY CARMAN: No headaches. Eyes: No blurred vision. ENT: He has some hearing loss. Cardiovascular: No chest pain. Respiratory: As in history of present illness. GI: No vomiting or abdominal pains. : No dysuria. Dermatology: There are skin lesions in both lower extremities. Endocrine: No thyroid disease or diabetes. Hematology: The patient is on chronic anticoagulation. Musculoskeletal: No joint pains. Psychiatric: No anxiety or depression. PHYSICAL EXAMINATION: VITAL SIGNS: Temperature 99.2 degrees, pulse 115, respirations 38, blood pressure 133/71, and oxygen saturation is 90%. HEENT: Atraumatic normocephalic. Sclera anicteric. The patient has a BiPAP mask in place. NECK: No lymphadenopathy or thyromegaly. CARDIOVASCULAR: S1, S2. RESPIRATORY: There is evidence of good air entry bilaterally. ABDOMEN: Soft. He has an ostomy in the left lower quadrant. EXTREMITIES: There are chronic skin changes in both lower extremities with 1+ edema. CENTRAL NERVOUS SYSTEM: No obvious focal deficits noted. LABORATORY DATA: WBC is 7.14, hematocrit 49.9 with a platelet count of 157,000. INR is 2.38. ABG 7.48/29/50, and 91.5%. Sodium is 140, potassium 4.8, chloride 104, bicarb 25, BUN 19, and creatinine 1.2. Glucose 172. Troponin is 161. X-ray of chest shows pulmonary edema and/or pneumonia as well as evidence of COPD. EKG shows accelerated junctional rhythm and left axis deviation, septal infarct, and T-wave abnormalities. ASSESSMENT AND PLAN: 1. Acute respiratory failure (hypoxemic). Primary lung conditions being COPD and pneumonia as well as pulmonary edema. Continue to address primary lung conditions. Maintain patient on BiPAP as well as oxygen supplementation. 2. COPD exacerbation. Maintain patient on nebulized bronchodilators, steroids, as well as antibiotics. 3. Probable pneumonia. Obtain sputum culture as well as blood cultures. Start patient on empiric antibiotics. 4. Acute CHF with pulmonary edema. Monitor intakes and outputs as well as daily weights. Maintain patient on diuretics. Check 2D echo of the heart. 5. Mechanical heart valve. The patient's INR is 2.38. The patient did describe some hemoptysis at time of presentation. Hemoptysis seems to have subsided for now. As such, we will continue Coumadin. 6. Hypertension. Optimize blood pressure control. 7. Dementia. Supportive care. The patient will benefit from cholinesterase inhibitor. 8. Chronic kidney disease. Follow up on renal function. Avoid nephrotoxic agent. 9. History of abdominal aortic aneurysm status post repair. Obtain abdominal CT of the abdomen and pelvis. 10. Benign prostatic hypertrophy. Continue doxazosin. 11. Elevated troponin levels. Place patient on telemetry. Obtain serial cardiac enzymes. Consult with Cardiology. 12. History of total colectomy with colostomy. Aware. Ostomy care per protocol. 13. Deep vein thrombosis prophylaxis. Patient is on warfarin. 14. Gastrointestinal prophylaxis. Proton pump inhibitor. cc: Jefferson Michelle MD
[2019-03-14 06:01] LABS: INR 2.5; PROTIME 27.7 Seconds (11.0-16.0)
[2019-03-14] MEDS ORDERED: PRILOSEC PO SCH (07:00)
--- NOTE | 2019-03-14 07:00 | EKG Report ---
Test Performed on : 03/13/2019 5:54:10 PM Test Reason : ED. NO EKG ORDER FOR MUSE Blood Pressure : / mmHG Vent. Rate : 112 BPM Atrial Rate : 115 BPM P-R Int : 000 ms QRS Dur : 110 ms QT Int : 348 ms P-R-T Axes : 000 -40 057 degrees QTc Int : 475 ms Undetermined rhythm Left axis deviation Septal infarct , age undetermined Abnormal ECG When compared with ECG of 13-OCT-2018 06:29, Current undetermined rhythm precludes rhythm comparison, needs review Left bundle branch block is no longer present Septal infarct is now present Unconfirmed Result
[2019-03-14] MEDS ORDERED: LOVENOX SUBQ SCH (09:00)
[2019-03-14] MEDS ORDERED: LASIX IV SCH (09:00)
--- NOTE | 2019-03-14 09:18 | Diag Imaging Result Doc PS360 ---
US ABDOMEN-COMPLETE - 03/14/2019 INDICATION: h/o abdominal aortic aneurysm s/p repair COMPARISON: CT from 10/12/2018 FINDINGS: There are numerous left renal cysts. These measure up to 2.2 cm. There are a couple small right renal cysts measuring up to 2 cm. Renal sizes are overall normal. The right kidney measures 11.4 x 5 x 4.7 cm. The left kidney measures 10.7 x 5.4 x 4.3 cm. The pancreas is obscured. The abdominal aorta is grossly normal in caliber. IVC and main portal vein are patent. There are several small shadowing gallstones in the gallbladder. There is some questionable gallbladder wall thickening measuring up to about 3.5 mm. Common bile duct measures 5 mm. The liver and spleen are normal. IMPRESSION: 1. Gallstones in the gallbladder. Mild gallbladder wall thickening. Consider further evaluation with a HIDA scan. 2. No acute abnormality of the aorta. 3. Stable bilateral renal cysts. Electronically signed by Ankush Otero 03/14/2019 9:15 AM
[2019-03-14] MEDS: LEVAQUIN PO SCH (10:09)
[2019-03-14] MEDS: VITAMIN D PO SCH (10:09)
[2019-03-14] MEDS: VITAMIN B-12 PO SCH (10:09)
[2019-03-14] MEDS: BUSPAR PO SCH ×2 (10:10→21:59)
[2019-03-14] MEDS: LIPITOR PO SCH (10:10)
[2019-03-14] MEDS: CARDURA PO SCH (10:10)
[2019-03-14] MEDS: SINGULAIR PO SCH (10:10)
[2019-03-14 11:36] LABS: CALCIUM 8.3 mg/dL (8.8-10.2); CREATININE 1.3 mg/dL (0.7-1.2); MAGNESIUM 1.6 mg/dL (1.5-2.7); POTASSIUM 4.6 mmol/L (3.5-5.1)
--- NOTE | 2019-03-14 13:00 | CONSULTATION ---
DATE OF CONSULTATION: 03/14/2019 IMPRESSION: 1. Acute hypoxemic respiratory failure in the setting of chronic obstructive pulmonary disease, significant pulmonary fibrosis, and probable acute pneumonia. Cannot entirely exclude element of pulmonary edema. 2. Chronic obstructive pulmonary disease. 3. 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 4. Hypertension. 5. Aortic valve disorder. Patient is status post aortic valve replacement with mechanical prosthesis approximately 18 years ago in [place], [place], for aortic stenosis. 6. Hyperlipidemia. RECOMMENDATIONS: 1. Limited diuresis reasonable. However, I would not continue Lasix daily at this point. 2. Echocardiography. 3. Consider pulmonary medicine consultation. 4. Conservative cardiovascular management overall. HISTORY: This 88-year-old white male with a past history of previous mechanical aortic valve replacement for aortic stenosis in 2001 in [place], [place], hypertension, some degree of dementia, COPD, and pulmonary fibrosis was admitted with acute shortness of breath and productive cough. Chest x-ray was abnormal. Pro B-natriuretic peptide level was elevated. Cardiology was consulted regarding possibility of associated pulmonary edema. The patient was in his usual state of health yesterday. He has tendency for chronic exertional shortness of breath and tends to ambulate with the aid of a walker. He does manage to live independently at home. He has been on home oxygen. He reports acute increase in shortness of breath upon awakening. He has had cough productive of some hemoptysis. There has been no chest pain. PAST MEDICAL HISTORY: 1. Status post aortic valve replacement with mechanical prosthesis for aortic stenosis in 2001 in [place], [place]. 2. Hypertension. 3. Chronic obstructive pulmonary disease. 4. Pulmonary fibrosis. 5. Early dementia. 6. He has a history of GI blood loss in the past. 7. Benign prostatic hypertrophy. 8. Status post partial colectomy for benign mass. Patient has colostomy. 9. Status post abdominal aortic aneurysm repair. 10. Status post bilateral hip repair. ALLERGIES: He has no known drug allergies. MEDICATIONS PRIOR TO ADMISSION: As listed. SOCIAL HISTORY: The patient resides at home and manages to live independently despite his physical limitations. He served in the [employer] in early 1950s and was in [place]. 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 He has a history of previous heavy cigarette use, having discontinued this several years ago. He does not use alcohol. FAMILY HISTORY: Negative for premature coronary artery disease and positive for cancer. REVIEW OF SYSTEMS: Pulmonary: Noteworthy for chronic exertional shortness of breath and acute increasing dyspnea, as well as cough and hemoptysis. Gastrointestinal: Noncontributory beyond history of present illness. Constitutional: Noncontributory beyond history of present illness. Other Systems: The remainder of review of systems negative/noncontributory beyond history present illness with 14 total systems reviewed. PHYSICAL EXAMINATION: General: This is a chronically ill-appearing, elderly white male who is thin and in no distress. Vital Signs: Blood pressure 124/82, heart rate 89. HEENT: Extraocular movements intact. Mucous membranes are moist. Neck: Supple. Jugular venous pressure appears to be normal based on inspection of neck veins. There are no carotid bruits. Chest/Pulmonary: Auscultation of the chest reveals bibasilar inspiratory crackles, as well as prominent bilateral rhonchi. Cardiac: Reveals a regular rate and rhythm with mechanical 2nd heart sound. No murmur or gallop could be appreciated. Abdomen: Soft. Bowel sounds normal. Extremities: Noteworthy for chronic venous stasis changes, but no edema. Neurologic: Exam reveals him to be alert and fully oriented. Speech is fluent. Moves all 4 extremities equally well. LABORATORY AND DIAGNOSTIC DATA: EKG demonstrates sinus rhythm and nonspecific T-wave abnormality. Laboratory data includes sodium 140, potassium 4.8, chloride 104, carbon dioxide 25, BUN 19, creatinine 1.2, glucose 172. Troponin T high sensitivity 65, 161, 138. CPK 61, 64, and 55. His pro B-natriuretic peptide level 8407. Prothrombin time 27.7, INR 2.5. White blood cell count 7.14, hematocrit 49.9, hemoglobin 15.7, platelet count 157,000. Chest x-ray reviewed and demonstrates bibasilar prominent infiltrates and some diffuse honeycombing. Appearance suggests chronic pulmonary fibrosis with probable superimposed bilateral pneumonia. cc: Edgardo Uribe MD
[2019-03-14] MEDS: MAXIPIME 1 GM in NS 50 ML IV SCH (14:47)
--- NOTE | 2019-03-14 15:48 | Diag Imaging Result Doc PS360 ---
EXAM: CT THORAX/ABDOMEN W/CONTRAST INDICATION: pneumonia, hemoptysis TECHNIQUE: This exam was performed using automated exposure control, adjustment of mA or kV according to patient size, and/or use of iterative reconstruction technique. COMPARISON: CT chest dated 11/03/[address] abdomen and pelvis dated 10/12/2018 FINDINGS: CHEST: There is advanced pulmonary emphysema. There is stable focal fibrosis involving the upper lobes near the apices. There is extensive airspace consolidation involving both lower lobes predominantly at the bases suggesting pneumonia. There is no pleural fluid collection and no pneumothorax. There are prominent mediastinal and hilar lymph nodes that are nonspecific. They are slightly more prominent than the previous study, likely reactive. There is no cardiomegaly. 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 There is no evidence of acute osseous abnormality. ABDOMEN: There are a few calcified stones layering in the gallbladder lumen, stable. There is no pericholecystic inflammatory change. There is a stable left hepatic lobe cyst. The liver is grossly unremarkable, otherwise. The spleen, pancreas, and adrenal glands are unremarkable. There are multiple stable renal cysts, some of which likely containing proteinaceous debris or blood products. There is a patent colostomy at the left lower quadrant. No bowel wall thickening or bowel obstruction is identified. The remainder of the GI tract is grossly unremarkable. There is extensive aortoiliac atherosclerotic disease with a small infrarenal abdominal aortic aneurysm measuring up to 3.1 cm in diameter, stable. There is a stable L3 compression deformity. There are chronic pars defects at L5. There is no evidence of acute osseous abnormality. IMPRESSION: 1.Severe pulmonary emphysema. 2.Dense airspace consolidations in both lower lobes mainly at the bases suggesting pneumonia. 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 4.Other incidental/nonacute findings detailed above. Electronically signed by Kennedy Huang 03/14/2019 3:46 PM
--- NOTE | 2019-03-14 18:00 | PROGRESS NOTE ---
DATE: 03/14/2019 SUBJECTIVE: He is kind of sleeping, breathing is a bit better. OBJECTIVE: Vital Signs: Blood pressure is 102/54, heart rate 99, respiratory 16, temperature 97.6 degrees. 91% on 2 L. Cardiovascular: Regular rate and rhythm. Pulmonary: Bilateral breath sounds with occasional wheezing rales. Gastrointestinal: Abdomen soft, nontender, nondistended. Bowel sounds are positive. LABORATORY DATA: INR is 2.5. BUN and creatinine are 24 and 1.3. Troponin was mildly elevated. PROBLEM LIST: 1. Acute congestive heart failure exacerbation. Cardiology is not recommended daily Lasix. 2. Hypoxic respiratory failure. He has a history of chronic obstructive pulmonary disease. There is no gerson pneumonia. We will continue to monitor. 3. Mechanical heart valve, aortic valve. We will get a Pulmonary consult. He does have pneumonia. Continue antibiotics and pulmonary toilet, which Dr. Stout has been consulted. I do not see a note from him. Continue strong antibiotics and we will continue to follow closely. He has an abnormality in his gallbladder, but he is not reporting any symptoms so I am going to hold off on HIDA now because we are going to treat his pneumonia and we will continue to follow. cc: Chris Rivera MD
--- NOTE | 2019-03-14 21:44 | PULMONOLOGY CONSULTATION ---
DATE: 03/14/2019 REQUESTING CLINICIAN: SHELLY Ronquillo REASON FOR CONSULTATION: Pulmonary fibrosis and pneumonia. HISTORY OF PRESENT ILLNESS: Mr. Soni is an 88-year-old white male with a history of COPD, history of chronic anticoagulation for a mechanical aortic valve, who presented to the emergency room with increased cough, increasing shortness of breath, and bloody sputum/hemoptysis. He underwent a chest x-ray which revealed diffuse bibasilar infiltrates. CT scan of the chest and abdomen was performed which revealed emphysema and new dense airspace consolidations in the lung bases with a partial ground-glass appearance. He has been admitted for additional evaluation and management. PAST MEDICAL HISTORY: 1. Chronic anticoagulation with prior mechanical aortic valve replacement. 2. Chronic obstructive pulmonary disease. 3. Bilateral hip fracture repair. 4. Hypertension. 5. Dementia. 6. BPH. 7. Status post colonic surgery for benign disease. 8. Status post abdominal aortic aneurysm repair. SOCIAL HISTORY: Remote history of tobacco use. No alcohol use currently. FAMILY HISTORY: Positive for unspecified cancer. REVIEW OF SYSTEMS: Notable for cough, bloody sputum, shortness of breath. PHYSICAL EXAMINATION: General: Reveals a thin, chronically ill-appearing male, resting comfortably and in no distress. Vital signs: Blood pressure 102/54, heart rate 95, respiratory rate 16, oxygen saturation 96% on nasal cannula. HEENT: Pupils are equal and reactive. Oropharynx is clear. Neck: Supple. Chest: Reveals rhonchi bilaterally with crackles in both lung bases. Cardiac Exam: S1, S2 with prominent aortic click present. Abdomen: Soft. Extremities: Reveal no edema. LABORATORIES: CT scan as per HPI. INR is 2.50. White blood count not obtained today. Sodium 143, potassium 4.6, chloride 111, bicarbonate 16, anion gap 16, BUN 24, creatinine 1.3. MICROBIOLOGY: Reveals a gram-negative jersey growing from his sputum. IMPRESSION: 1. Acute on chronic hypoxemic respiratory failure. 2. Chronic obstructive pulmonary disease. 3. Hemoptysis. 4. Gram-negative pneumonia. DISCUSSION: An 88-year-old with no significant pulmonary fibrosis noted on a CT scan of the abdomen and pelvis in November of 2018 who now has fairly significant infiltrates in the lower lobes. This most likely appears to be an acute infectious process likely with a component of airspace bleeding. RECOMMENDATIONS: 1. Augment antibiotics for additional gram-negative coverage. Cefepime has been initiated. 2. Begin weaning steroids soon. 3. Oxygen for acute on chronic hypoxemic respiratory failure. 4. Daily INR levels. 5. Guarded prognosis. cc: Danie Stout MD
[2019-03-14] MEDS: REQUIP PO SCH (21:59)
[2019-03-14] MEDS: FERROUS SULFATE PO SCH (21:59)
[2019-03-15] MEDS: NITROGLYCERIN TOP SCH ×4 (01:59→19:57)
[2019-03-15] MEDS: PROTONIX IV SCH (03:19)
[2019-03-15] MEDS: SODIUM CHLORIDE 0.9% INJ SCH (03:19)
[2019-03-15] MEDS: SOLU-MEDROL IV SCH ×3 (03:19→23:42)
[2019-03-15] MEDS: MAXIPIME 1 GM in NS 50 ML IV SCH ×2 (03:20→16:33)
[2019-03-15] MEDS: DUONEB (A & A) INH SCH ×6 (04:31→23:57)
[2019-03-15 07:10] LABS: INR 2.75; PROTIME 29.9 Seconds (11.0-16.0)
[2019-03-15 07:18] LABS: HEMATOCRIT 39.6 % (42.0-52.0); HEMOGLOBIN 12.3 g/dL (14.0-18.0); LYMPH# 0.41 X1000 (1.2-3.4); LYMPH% 4.5 % (20.5-51.1); MCH 27.8 PG (27-31); MCHC 31.1 g/dL (33-37); MCV 89.6 FL (81-99); MONO# 0.25 X1000 (0.11-0.59); MONO% 2.7 % (1.7-9.3); MPV 10.3 FL (7.4-10.4); NEUT# 8.49 X1000 (1.4-6.5); NEUT% 92.8 % (42.2-75.2); PLT 145 X1000 (130-400); RBC 4.42 XMIL (4.7-6.1); RDW 16.1 % (11.5-14.5); WBC 9.15 X1000 (4.8-10.8)
[2019-03-15 07:52] LABS: ALB/GLOB RATIO 1.3; ALBUMIN 3.2 g/dL (3.5-5.0); CALCIUM 9.1 mg/dL (8.8-10.2); CREATININE 1.4 mg/dL (0.7-1.2); DIRECT BILIRUBIN 0.2 mg/dL (0.00-0.20); MAGNESIUM 1.9 mg/dL (1.5-2.7); POTASSIUM 4.4 mmol/L (3.5-5.1); TOTAL BILIRUBIN 0.73 mg/dL (0.20-1.00); TOTAL PROTEIN 5.7 g/dL (6.3-8.3)
[2019-03-15 08:30] LABS: BANDS 10 % (0-1); LYMPHS 2 % (21-51); MONO 2 % (1-9); SEGS 86 % (42-75)
--- NOTE | 2019-03-15 09:53 | Diag Imaging Result Doc PS360 ---
EXAM: HIDA SCAN W/ EJECTION FRACTION INDICATION: cholelithiasis TECHNIQUE: 5.5 mCi of technetium 99 Choletec was administered intravenously and images were obtained in usual fashion. COMPARISON: None. FINDINGS: Activity is seen in the small bowel beginning at about 29 minutes post administration. Activity is seen in the gallbladder beginning at 46 minutes post administration. 8 ounces of liquid fatty meal was then administered orally. The calculated gallbladder ejection fraction is 19%. IMPRESSION: Depressed gallbladder ejection fraction suggesting possible hypokinesis. Electronically signed by Kennedy Huang 03/15/2019 9:50 AM
[2019-03-15] MEDS: VITAMIN D PO SCH (10:27)
[2019-03-15] MEDS: CARDURA PO SCH (10:27)
[2019-03-15] MEDS: SINGULAIR PO SCH (10:27)
[2019-03-15] MEDS: LIPITOR PO SCH (10:27)
[2019-03-15] MEDS: LEVAQUIN PO SCH (10:27)
[2019-03-15] MEDS: VITAMIN B-12 PO SCH (10:27)
[2019-03-15] MEDS: BUSPAR PO SCH ×3 (10:28→23:33)
[2019-03-15] MEDS ORDERED: ATIVAN IV ONE (10:44)
--- NOTE | 2019-03-15 13:16 | EKG Report ---
Test Performed on : 03/15/2019 12:52:13 PM Test Reason : chest pain Blood Pressure : / mmHG Vent. Rate : 097 BPM Atrial Rate : 097 BPM P-R Int : 238 ms QRS Dur : 122 ms QT Int : 380 ms P-R-T Axes : -40 -37 180 degrees QTc Int : 482 ms Unusual P axis, possible ectopic atrial rhythm. Left axis deviation Left bundle branch block Abnormal ECG When compared with ECG of 14-MAR-2019 00:19, (Unconfirmed) Ectopic atrial rhythm. has replaced Junctional rhythm. Left bundle branch block is now present Criteria for Septal infarct are no longer present Confirmed by Victor M JUAREZ, Gregorio Ferreira ([id number]) on 03/17/2019 2:33:22 PM
--- NOTE | 2019-03-15 17:42 | ECHO REPORT ---
ORDER DATE: 03/14/2019 MEASUREMENTS: Left ventricular internal diameter end-diastole 3.4, septal thickness 1.6, left ventricular internal diameter end-systole 2.4, left atrium 3.7. SUMMARY: 1. Technically difficult study due to limited acoustic window quality. 2. Aortic valve was not well imaged. It appears to demonstrate at least moderate sclerotic change. Peak gradient across aortic valve is 44 mmHg with a mean gradient 32 mmHg. The calculated aortic valve area by Doppler is 1.0 to 1.1 cm2. Moderately severe aortic stenosis suggested. Mitral and tricuspid valves are without evidence of structural abnormality while pulmonic valve was not well demonstrated. There is trace mitral regurgitation and mild tricuspid regurgitation. The estimated systolic PA pressure by Doppler is 35 mmHg. Aortic root is normal in size. 3. Moderate concentric left ventricular hypertrophy is demonstrated. The estimated left ventricular ejection fraction appears to be at least 60%. No regional wall motion abnormalities evident. Left atrium is mildly enlarged. The right atrium and right ventricle are grossly normal in size with grossly preserved right ventricular systolic function. 4. No pericardial fusion. 5. Appearance of inferior vena cava suggests normal central venous pressure. cc: MD Jefferson St MD
--- NOTE | 2019-03-15 18:02 | PROGRESS NOTE ---
DATE: 03/15/2019 SUBJECTIVE: He looks much better today, not having as much trouble breathing, not as much trouble struggling to breathe. He seems a lot more calm. OBJECTIVE: Vital Signs: Blood pressure 130/66, heart rate 93, respiratory rate 20, temperature 97.4 degrees, 93% on 2 L. Cardiovascular: Regular rate and rhythm. Pulmonary: Bilateral breath sounds clear to auscultation. GI: Soft, nontender, nondistended. Bowel sounds are positive. LABORATORY DATA: White count 9, hemoglobin 12 and hematocrit 39, platelets 145,000. INR 2.7. Creatinine is about 1.4. PROBLEM LIST: 1. Multilobar pneumonia seems to be doing a bit better from that standpoint. We will continue empiric antibiotics and follow. 2. Acute congestive heart failure exacerbation, but his creatinine is increasing. We will continue to monitor. Withholding anything nephrotoxic. 3. Mechanical valve. We will continue Coumadin and follow. He is therapeutic. I am going to wean his steroids a bit. 4. Dyslipidemia. We will continue treatment and follow closely. DISPOSITION: I think he is doing better. I anticipate discharge soon. cc: Chris Rivera MD
--- NOTE | 2019-03-15 19:08 | PROGRESS NOTE ---
DATE: 03/15/2019 SUBJECTIVE: Patient reports feeling much better today and denies shortness of breath on supplemental oxygen. There has been no chest pain. OBJECTIVE: Vital signs: Blood pressure 130/66, heart rate 93, oxygen saturation 93% on nasal cannula oxygen at 2 L/minute. Neck: There is no significant jugular distention. Chest: Auscultation of the chest reveals bibasilar inspiratory crackles. Cardiac: Regular rate and rhythm without appreciable murmur or gallop. Extremities: Without edema. LABORATORY DATA: Includes a white blood cell count of 9.15, hematocrit 39.6, hemoglobin 12.3, platelet count 145,000. Sodium 141, potassium 4.4, chloride 106, carbon dioxide 24, BUN 35, creatinine 1.4, glucose 174. Troponin T high sensitivity 70. Echocardiography indicates calculated aortic valve area of 1.0 to 1.1 cm2 with a peak gradient of 44 mmHg and a mean gradient of 32 mmHg. Moderate to severe aortic stenosis is suggested. Aortic valve not well imaged and may actually be a bioprosthesis. Left ventricular ejection fraction normal with moderate concentric left hypertrophy. IMPRESSION: 1. Acute hypoxemic respiratory failure in the setting of chronic obstructive pulmonary disease, significant pulmonary fibrosis, and probable acute pneumonitis. 2. Chronic obstructive pulmonary disease. 3. Pulmonary fibrosis, with history of asbestos exposure. 4. Aortic valve disorder. Patient is status post previous aortic valve replacement in [place], [place] approximately 18 years ago. This appears more likely to have been a bioprosthesis and moderate to severe aortic stenosis is demonstrated. 5. Hyperlipidemia. 6. Hypertension. RECOMMENDATIONS: 1. Continue current cardiovascular regimen unchanged. 2. No further cardiovascular suggestions at this point. Reasonable for patient to be discharged home soon and have followup in Cardiology Clinic. cc: Edgardo Uribe MD
[2019-03-15] MEDS: COUMADIN PO SCH ×3 (19:50→23:34)
[2019-03-15] MEDS: FERROUS SULFATE PO SCH ×2 (19:56→23:34)
[2019-03-15] MEDS: REQUIP PO SCH ×2 (19:56→23:34)
--- NOTE | 2019-03-15 21:53 | PULMONOLOGY PROGRESS NOTE ---
DATE: 03/15/2019 SUBJECTIVE: The patient is awake, alert, and conversant. He reports his breathing has improved. He has had no significant hemoptysis today. OBJECTIVE: Vital Signs: The patient has been afebrile for the last 24 hours. Blood pressure 161/67, heart rate 99, respiratory rate 22, oxygen saturation 91%. HEENT: Pupils are equal and reactive. Oropharynx appears clear. Neck: Supple. Chest: Crackles in both lung bases. Cardiac: S1, S2. Abdomen: Soft. Extremities: Without edema. LABORATORIES: Microbiology reveals Klebsiella pneumoniae from a sputum sample. White blood count 9.15, hemoglobin 12.3, platelet count 145,000. IMPRESSION: An 88-year-old with: 1. Gram-negative pneumonia. 2. Acute on chronic hypoxemic respiratory failure. 3. Hemoptysis, likely related to a component of gram-negative pneumoniae with anticoagulation. 4. Chronic obstructive pulmonary disease. PLAN: 1. Continue current antibiotic regimen. 2. Agree with steroid weaning as outlined by Dr. Rivera. 3. Continue bronchodilators. 4. We will schedule chest x-ray tomorrow. cc: Danie Stout MD
[2019-03-15] MEDS ORDERED: SODIUM CHLORIDE 0.9% INJ SCH (22:00)
[2019-03-15] MEDS: ATIVAN PO PRN (23:42)
[2019-03-16] MEDS: NITROGLYCERIN TOP SCH ×4 (03:23→20:50)
[2019-03-16] MEDS: MAXIPIME 1 GM in NS 50 ML IV SCH ×2 (03:23→15:24)
[2019-03-16] MEDS: DUONEB (A & A) INH SCH ×6 (04:10→23:27)
[2019-03-16] MEDS: PROTONIX PO SCH ×2 (05:52→07:30)
[2019-03-16] MEDS: ATIVAN PO PRN ×4 (05:52→23:32)
[2019-03-16] MEDS ORDERED: PROTONIX PO SCH (07:00)
[2019-03-16] MEDS: VITAMIN D PO SCH (08:26)
[2019-03-16] MEDS: LEVAQUIN PO SCH (08:26)
[2019-03-16] MEDS: SINGULAIR PO SCH (08:26)
[2019-03-16] MEDS: BUSPAR PO SCH ×2 (08:26→20:50)
[2019-03-16] MEDS: VITAMIN B-12 PO SCH (08:26)
[2019-03-16] MEDS: LIPITOR PO SCH (08:26)
[2019-03-16] MEDS: CARDURA PO SCH (08:26)
--- NOTE | 2019-03-16 08:57 | Diag Imaging Result Doc PS360 ---
EXAM: CHEST-2 VIEWS 03/16/2019 HISTORY: abnormal exam TECHNIQUE: PA and lateral chest COMMENT: The alveolar opacity which was present on 03/13/2019 in the lung bases has improved considerably. There is residual interstitial opacity which is only slightly worse than on 10/12/2018. IMPRESSION: Improved pulmonary edema. This is superimposed on interstitial fibrosis. Electronically signed by Fidencio Joseph 03/16/2019 8:55 AM
[2019-03-16 11:48] LABS: BASO# 0.01 X1000 (0.0-0.2); BASO% 0.1 % (0.0-0.8); HEMOGLOBIN 12.5 g/dL (14.0-18.0); IMM GRAN# 0.04 X1000 (0.0-0.04); IMM GRAN% 0.4 % (0.0-0.5); LYMPH# 0.41 X1000 (1.2-3.4); LYMPH% 4.5 % (20.5-51.1); MCH 27.9 PG (27-31); MCHC 31.3 g/dL (33-37); MCV 89.3 FL (81-99); MONO# 0.36 X1000 (0.11-0.59); MONO% 3.9 % (1.7-9.3); MPV 10.6 FL (7.4-10.4); NEUT# 8.34 X1000 (1.4-6.5); NEUT% 91.1 % (42.2-75.2); PLT 147 X1000 (130-400); RBC 4.48 XMIL (4.7-6.1); WBC 9.16 X1000 (4.8-10.8)
[2019-03-16 11:58] LABS: INR 2.01; PROTIME 23.2 Seconds (11.0-16.0)
[2019-03-16 12:10] LABS: CALCIUM 9.6 mg/dL (8.8-10.2); CREATININE 1.2 mg/dL (0.7-1.2)
[2019-03-16] MEDS: SOLU-MEDROL IV SCH (12:35)
[2019-03-16 13:45] LABS: BANDS 4 % (0-1); LYMPHS 8 % (21-51); MONO 4 % (1-9); SEGS 84 % (42-75)
[2019-03-16] MEDS: COUMADIN PO SCH (20:50)
[2019-03-16] MEDS: REQUIP PO SCH (20:50)
[2019-03-16] MEDS: FERROUS SULFATE PO SCH (20:50)
[2019-03-16] MEDS ORDERED: DUONEB (A & A) ONE (23:33)
[2019-03-17] MEDS: NITROGLYCERIN TOP SCH ×2 (02:41→08:46)
[2019-03-17] MEDS: MAXIPIME 1 GM in NS 50 ML IV SCH (02:41)
--- NOTE | 2019-03-17 03:38 | PULMONOLOGY PROGRESS NOTE ---
DATE: 03/16/2019 SUBJECTIVE: The patient is awake and alert. Clinically, he reports he feels better. He has no significant sputum production. OBJECTIVE: Vital Signs: The patient has been afebrile for the last 24 hours. Blood pressure 155/66, heart rate 106, respiratory rate 18, oxygen saturation 95% on 3 L per nasal cannula. HEENT: Pupils are equal and reactive. Oropharynx is clear. Neck: Supple. Chest: Reveals crackles in both lung bases. Cardiac: S1, S2. Abdomen: Soft. Extremities: Without edema. LABORATORIES: White blood count 9.16, hemoglobin 12.5, platelet count 147,000. Sodium 143, potassium 4.0, chloride 108, bicarbonate 23, BUN 40, creatinine 1.2. Chest x-ray reveals significant improvement in bibasilar infiltrates. INR is 2.01. IMPRESSION: 1. An 88-year-old with gram-negative pneumonia. 2. Acute on chronic hypoxemic respiratory failure. 3. Hemoptysis is related to pneumonia and the need for chronic anticoagulation related to cardiac valve. 4. Chronic obstructive pulmonary disease. PLAN: 1. Continue current antibiotic regimen. 2. Discontinue steroids. 3. Continue bronchodilator. 4. Consider discharge home soon if he continues to rapidly improve. cc: Danie Stout MD
[2019-03-17] MEDS: DUONEB (A & A) INH SCH ×5 (03:46→20:16)
[2019-03-17] MEDS ORDERED: ATIVAN IV ONE (04:12)
[2019-03-17] MEDS ORDERED: HALDOL IV ONE ×2 (04:13→04:17)
[2019-03-17 07:31] LABS: INR 1.92; PROTIME 22.4 Seconds (11.0-16.0)
[2019-03-17 08:23] LABS: CALCIUM 9.3 mg/dL (8.8-10.2); CREATININE 1.2 mg/dL (0.7-1.2); POTASSIUM 4.1 mmol/L (3.5-5.1)
[2019-03-17] MEDS: BUSPAR PO SCH ×2 (08:53→21:47)
[2019-03-17] MEDS: CARDURA PO SCH (08:53)
[2019-03-17] MEDS: PROTONIX PO SCH (08:53)
[2019-03-17] MEDS: LIPITOR PO SCH (08:53)
[2019-03-17] MEDS: VITAMIN B-12 PO SCH (08:53)
[2019-03-17] MEDS: LEVAQUIN PO SCH (08:53)
[2019-03-17] MEDS: VITAMIN D PO SCH (08:53)
[2019-03-17] MEDS: SINGULAIR PO SCH (08:53)
--- NOTE | 2019-03-17 18:19 | PROGRESS NOTE ---
DATE: 03/16/2019 SUBJECTIVE: Breathing is improving, doing okay. OBJECTIVE: Vital Signs: Blood pressure 155/60, heart rate 106, respiratory rate 18, temperature 97.5 degrees, 95% on 3 L. Cardiovascular: Regular rate and rhythm. Pulmonary: Bilateral breath sounds diminished bases. No wheezing. Occasional rales. Gastrointestinal: Abdomen was soft, nontender, nondistended. Bowel sounds are positive. White count 9, hemoglobin and hematocrit 12 and 40. Platelets 147,000. INR 2, BUN and creatinine of 40 and 1.2. PROBLEM LIST: 1. Pneumonia multilobar. Continue antibiotics. He is on cefepime, Levaquin and cefepime 2 days. 2. Hypertension. Stable on current regimen. 3. Acute congestive heart failure exacerbation seems to be stable. 4. Mechanical aortic valve. We will continue Coumadin, goal INR 2.5 to 3.5. DISPOSITION: Anticipate discharge soon pending clinical status. cc: Chris Rivera MD
--- NOTE | 2019-03-17 19:56 | PROGRESS NOTE ---
DATE: 03/17/2019 INTERVAL HISTORY: Overnight, the patient did have episodes of agitation. He wanted to come out of bed and required multiple doses of haloperidol intravenously as well as lorazepam. Since then, in the morning time, he has been pretty much asleep. I decreased his oxygen to 2.5 L and he is still saturating 95%. I discussed with the nurse about keeping a close eye over oxygen status. SUBJECTIVE: Mr. Soni is asleep and is not waking up to engage in a meaningful conversation. He occasionally mumbles, but is not able to keep his eyes open. VITAL SIGNS: Temperature of 98.3 degrees, pulse 79, respiratory rate 18, blood pressure 142/62. He is saturating 95% on 2.5 L oxygen at bedside at the time of my evaluation. PHYSICAL EXAMINATION: Oral cavity: Appears dry. Lungs: No wheeze or rhonchi. Decreased air entry with inspiratory crackles in bilateral infra-axillary regions. Heart: S1, S2 normal. He has a mechanical S2. No murmur or gallop. Abdomen: Soft, nontender. Extremities: No lower extremity edema. He has dry, scaly skin on bilateral lower extremities. LABS: Input and output suggest he is -2.3 L since admission. Labs suggestive of no CBC today. INR of 1.9. His BMP suggests chronic kidney disease stage 3. Sputum is growing Klebsiella pneumoniae which is sensitive to cefazolin and Levaquin. IMAGING: No new imaging. Previously, HIDA scan was performed which had depressed gallbladder ejection fraction, suggesting possible hypokinesia. Abdominal ultrasound performed had a gallstone in the gallbladder, mild gallbladder wall thickening; however, he is not having any abdominal pain at the time of my evaluation or any tenderness. ASSESSMENT AND PLAN: 1. Acute on chronic hypoxic respiratory failure due to acute pulmonary edema, acute chronic obstructive pulmonary disease exacerbation, and bilateral lower lobe pneumonia due to Klebsiella, now improved. Continue oxygenation for his chronic hypoxic respiratory failure at about 2.5 L/minute, and wean down as tolerated. 2. Bilateral lower lobe pneumonia. Change antibiotics to intravenous levofloxacin to complete a total of 7 to 10 days course of antibiotics. I will keep him on inhaled bronchodilators. 3. Acute pulmonary edema. His ejection fraction was preserved at 60%. He previously received Lasix which has been on hold. 4. Others. Continue warfarin for history of mechanical aortic wall, atorvastatin for hyperlipidemia, doxazosin for benign prostatic hypertrophy, ropinirole for restless leg syndrome, buspirone for anxiety. DISPOSITION: The patient is medically ready to be discharged; however, currently he is too sleepy to answer any questions. According to the nurse, he was awake the entire night and he received multiple doses of sedative medications enterprise architect manager time. I will keep him in the hospital as I await improvement in mental status. Plan of care discussed with nursing team. Their questions have been answered. cc: Ricardo Jimenez MD
[2019-03-17] MEDS: FERROUS SULFATE PO SCH (21:47)
[2019-03-17] MEDS: COUMADIN PO SCH (21:47)
[2019-03-17] MEDS: REQUIP PO SCH (21:47)
--- NOTE | 2019-03-17 21:53 | PULMONOLOGY PROGRESS NOTE ---
DATE: 03/17/2019 SUBJECTIVE: The patient was sleeping upon arrival. He is arousable but indicates he is trying to get some sleep. His chart was reviewed. He has received multiple doses of Haldol with some Ativan last evening due to confusion. OBJECTIVE: Vital Signs: The patient has been afebrile for the last 24 hours. Blood pressure 140/58, heart rate 82, respiratory rate 24, oxygen saturation 97% on 3 L per nasal cannula. HEENT: Pupils are equal and reactive. Oropharynx appears clear. Neck: Supple. Chest: Reveals good air entry bilaterally without wheezing or rhonchi. He does have bibasilar crackles. Cardiac: S1-S2. Abdomen: Soft. Extremities: Without edema. LABORATORIES: Sodium 145, potassium 4.1, chloride 109, bicarbonate 23, BUN 41, creatinine 1.2. INR is 1.92. IMPRESSION: An 88-year-old with: 1. Gram-negative pneumonia. 2. Acute on chronic hypoxemic respiratory failure. 3. Hemoptysis which has resolved. 4. Chronic obstructive pulmonary disease. 5. Delirium. PLAN: 1. Continue current antibiotic regimen. 2. Steroids were discontinued yesterday. Hopefully this will help in resolving his delirium. 3. Discharge being delayed pending improvement in mental status. cc: Danie Stout MD
[2019-03-18] MEDS: DUONEB (A & A) INH SCH ×6 (04:03→23:24)
[2019-03-18] MEDS: PROTONIX PO SCH (06:32)
[2019-03-18] MEDS: ATIVAN PO PRN (06:32)
[2019-03-18] MEDS: LEVAQUIN 500 MG/D5W 500 MG/100 ML IVPB IV SCH (06:33)
[2019-03-18 07:24] LABS: INR 1.86; PROTIME 21.9 Seconds (11.0-16.0)
[2019-03-18] MEDS: VITAMIN D PO SCH (11:09)
[2019-03-18] MEDS: BUSPAR PO SCH ×2 (11:09→23:41)
[2019-03-18] MEDS: LIPITOR PO SCH (11:09)
[2019-03-18] MEDS: VITAMIN B-12 PO SCH (11:09)
[2019-03-18] MEDS: CARDURA PO SCH (11:10)
[2019-03-18] MEDS: SINGULAIR PO SCH (11:10)
[2019-03-18] MEDS ORDERED: COUMADIN PO ONE (15:19)
[2019-03-18] MEDS ORDERED: LASIX PO ONE (15:45)
[2019-03-18] MEDS ORDERED: LASIX IV ONE (16:06)
[2019-03-18] MEDS: FLONASE NAS SCH ×2 (18:13→23:41)
--- NOTE | 2019-03-18 20:06 | PROGRESS NOTE ---
DATE: 03/18/2019 INTERVAL HISTORY: No acute events overnight. SUBJECTIVE: Mr. Soni says he is feeling short of breath and he is not feeling good. He states he is feeling as if he is about to . However, he also states that he is feeling better than yesterday. He states that he needs to be around doctors because he feels as if he was going to . VITAL SIGNS: Temperature 98.4 degrees, pulse 88, respiratory rate 16, blood pressure 125/53, saturating 90 to 94 percent on 3 L nasal cannula. PHYSICAL EXAMINATION: General: He is in mild distress because of shortness of breath. Oral cavity: Moist. Lungs: He does have decreased air entry in bilateral lung gomes. No wheeze or rhonchi. He has mild crackles in infrascapular region. Heart: S1, S2 normal. His S2 is mechanical. No murmur, rub, or gallop. Abdomen: Soft, nontender. Left lower quadrant colostomy. Extremities: No lower extremity edema. He has bilateral venous stasis dermatitis. IMAGING: No new imaging. LABORATORY: Since admission, he is -2.2 L. Labs suggestive of INR of 1.8. MICROBIOLOGY: No new data. ASSESSMENT AND PLAN: 1. Acute on chronic hypoxic respiratory failure due to acute pulmonary edema, acute chronic obstructive pulmonary disease exacerbation, and bilateral lower lobe pneumonia due to Klebsiella, now improved. Continue oxygenation to maintain saturation more than 90%. 2. Bilateral lower lobe pneumonia, due to Klebsiella. Continue intravenous levofloxacin. Day 1 of antibiotics has been 03/14/2019. 3. Others. Continue warfarin for mechanical aortic valve with goal INR of 2 to 3; atorvastatin for hyperlipidemia; doxazosin for benign prostatic hypertrophy; ropinirole for restless leg syndrome; and buspirone for anxiety. I will also add quetiapine for nighttime hospital- acquired delirium. 4. Disposition. I had a discussion with the patient that he may need medical care as, considering his anxiety, he is unwilling to go home. I will consult Social Service for rehab. Considering his pneumonia, acute hypoxic respiratory failure, he could benefit from going to the rehab. I also counseled him that he should potentially start thinking about [facility] facility for long-term stay. All of his questions have been answered. I will give him additional dose of intravenous Lasix. cc: Ricardo Jimenez MD
[2019-03-18] MEDS: REQUIP PO SCH (23:41)
[2019-03-18] MEDS: COUMADIN PO SCH (23:42)
[2019-03-18] MEDS: FERROUS SULFATE PO SCH (23:42)
[2019-03-18] MEDS: SEROQUEL PO SCH (23:43)
[2019-03-19] MEDS: DUONEB (A & A) INH SCH ×6 (03:23→23:21)
[2019-03-19] MEDS: LEVAQUIN 500 MG/D5W 500 MG/100 ML IVPB IV SCH (06:13)
[2019-03-19] MEDS: PROTONIX PO SCH (06:14)
--- NOTE | 2019-03-19 07:41 | Diag Imaging Result Doc PS360 ---
CHEST-1 VIEW - 03/19/2019 INDICATION: SOB COMPARISON: 03/16/2019 FINDINGS: Stable sternotomy wires. Stable cardiomegaly and pulmonary vascular congestion. Stable advanced pulmonary fibrosis. No new infiltrates. IMPRESSION: No change from prior. Electronically signed by Ankush Otero 03/19/2019 7:39 AM
[2019-03-19 08:17] LABS: BASO# 0.12 X1000 (0.0-0.2); BASO% 1.5 % (0.0-0.8); EOS% 6.3 % (0.0-10.0); HEMATOCRIT 44.3 % (42.0-52.0); HEMOGLOBIN 13.7 g/dL (14.0-18.0); IMM GRAN# 0.12 X1000 (0.0-0.04); IMM GRAN% 1.5 % (0.0-0.5); LYMPH# 0.93 X1000 (1.2-3.4); LYMPH% 11.8 % (20.5-51.1); MCH 28.4 PG (27-31); MCHC 30.9 g/dL (33-37); MCV 91.7 FL (81-99); MONO# 0.66 X1000 (0.11-0.59); MONO% 8.4 % (1.7-9.3); MPV 10.3 FL (7.4-10.4); NEUT# 5.55 X1000 (1.4-6.5); NEUT% 70.5 % (42.2-75.2); PLT 124 X1000 (130-400); RBC 4.83 XMIL (4.7-6.1); RDW 16.2 % (11.5-14.5); WBC 7.88 X1000 (4.8-10.8)
[2019-03-19 08:21] LABS: INR 1.78; PROTIME 21.1 Seconds (11.0-16.0)
[2019-03-19] MEDS: CARDURA PO SCH (08:22)
[2019-03-19] MEDS: BUSPAR PO SCH ×2 (08:22→21:00)
[2019-03-19] MEDS: VITAMIN D PO SCH (08:22)
[2019-03-19] MEDS: VITAMIN B-12 PO SCH (08:23)
[2019-03-19] MEDS: SINGULAIR PO SCH (08:23)
[2019-03-19] MEDS: FLONASE NAS SCH ×2 (08:23→21:00)
[2019-03-19] MEDS: LIPITOR PO SCH (08:23)
[2019-03-19 09:05] LABS: AGAP 12; BUN 33 mg/dL (8-22); CALCIUM 8.4 mg/dL (8.8-10.2); CHLORIDE 105 mmol/L (98-107); COSMO 292; CREATININE 1.1 mg/dL (0.7-1.2); ESTIMATED GFR > 60; GLUCOSE 89 mg/dL (70-104); POTASSIUM 3.7 mmol/L (3.5-5.1); SODIUM 143 mmol/L (136-145); TCO2 26 mmol/L (25-35)
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
[2019-03-19] MEDS: LOVENOX SUBQ SCH (17:26)
[2019-03-19] MEDS: FERROUS SULFATE PO SCH (21:00)
[2019-03-19] MEDS: SEROQUEL PO SCH (21:00)
[2019-03-19] MEDS: REQUIP PO SCH (21:00)
[2019-03-19] MEDS: COUMADIN PO SCH (21:00)
[2019-03-20] MEDS: DUONEB (A & A) INH SCH ×5 (03:16→23:20)
[2019-03-20] MEDS: PROTONIX PO SCH (06:11)
[2019-03-20] MEDS: LOVENOX SUBQ SCH (06:11)
[2019-03-20] MEDS: LEVAQUIN 500 MG/D5W 500 MG/100 ML IVPB IV SCH (06:11)
[2019-03-20 07:02] LABS: INR 2.01; PROTIME 23.3 Seconds (11.0-16.0)
--- NOTE | 2019-03-20 08:43 | PROGRESS NOTE ---
DATE: 03/20/2019 SUBJECTIVE: Mr. Soni is breathing better. He had a better night, got some sleep. The patient voided, brief, full urine so was changed yesterday. He is breathing comfortably at this time. OBJECTIVE: Temperature is 97.5 degrees, pulse 80, respirations 16, blood pressure 150/56. Pupils are equal and round. Lungs are clear in all lung gomes. Cardiovascular Examination: Regular rhythm and rate without murmur or S3. Abdomen is soft. Skin is warm and dry. Urine output is 600 mL. Chest x-ray from yesterday, stable sternotomy wires, stable cardiomegaly, and pulmonary vascular congestion. Stable advanced pulmonary fibrosis. No new infiltrates appreciated. ASSESSMENT AND PLAN: 1. Acute on chronic hypoxemic respiratory failure due to acute pulmonary edema, acute chronic obstructive pulmonary disease exacerbation, acute diastolic congestive heart failure exacerbation, bilateral lower lobe pneumonia due to Klebsiella, which is clinically improving and radiographically improving. He is on supplementary oxygen, bronchodilators. Continue these and antibiotics. We will continue present antibiotics. 2. Bilateral pneumonia and Klebsiella. Getting intravenous levofloxacin. Day 1 was on 03/14/2019. Plan to treat him for a 7 to 10 day course. 3. Acute diastolic congestive heart failure. He has been net negative on his fluids and is improving clinically. 4. History of mechanical aortic valve, which he has been on warfarin. Goal is INR of 2 to 3. Give him additional dose of warfarin. 5. Continue doxazosin for benign prostatic hypertrophy. 6. He has restless legs syndrome, so he is on ropinirole. We will continue that. 7. Anxieties. He is on quetiapine for his anxiety and hospital-acquired delirium. REVIEW OF HIS ORDERS: I do not see any change. He is on ferrous sulfate 325 mg at bedtime, Seroquel 12.5 mg at bedtime, Coumadin 2 mg at bedtime, Lipitor 40 mg a day, BuSpar 15 mg b.i.d., Cardura 2 mg daily, Singulair 10 mg daily, Protonix 40 mg a day, ropinirole 4 mg at bedtime, Cardura 2 mg daily. LABORATORY DATA: From the 25th, white count 7880, hematocrit is 44, platelet count 124,000. Chemistries: Sodium 143, potassium 3.7, chloride 105, bicarb 26, BUN 33, creatinine 1.1. Blood sugars have been 174, 151, 104, and 89. cc: Justin Mckinney MD
[2019-03-20] MEDS: FLONASE NAS SCH ×2 (09:08→20:25)
[2019-03-20] MEDS: LIPITOR PO SCH (09:09)
[2019-03-20] MEDS: BUSPAR PO SCH ×2 (09:09→20:25)
[2019-03-20] MEDS: SINGULAIR PO SCH (09:09)
[2019-03-20] MEDS: CARDURA PO SCH (09:09)
[2019-03-20] MEDS: VITAMIN B-12 PO SCH (09:09)
[2019-03-20] MEDS: VITAMIN D PO SCH (09:09)
[2019-03-20] MEDS: REQUIP PO SCH (20:25)
[2019-03-20] MEDS: COUMADIN PO SCH (20:25)
[2019-03-20] MEDS: SEROQUEL PO SCH (20:26)
[2019-03-20] MEDS: FERROUS SULFATE PO SCH (20:26)
[2019-03-21] MEDS: DUONEB (A & A) INH SCH ×5 (03:11→15:44)
[2019-03-21] MEDS: PROTONIX PO SCH (06:40)
[2019-03-21] MEDS: LEVAQUIN 500 MG/D5W 500 MG/100 ML IVPB IV SCH (06:40)
[2019-03-21 07:04] LABS: INR 1.93; PROTIME 22.5 Seconds (11.0-16.0)
[2019-03-21] MEDS: SINGULAIR PO SCH (09:51)
[2019-03-21] MEDS: VITAMIN D PO SCH (09:51)
[2019-03-21] MEDS: BUSPAR PO SCH (09:51)
[2019-03-21] MEDS: CARDURA PO SCH (09:51)
[2019-03-21] MEDS: VITAMIN B-12 PO SCH (09:51)
[2019-03-21] MEDS: LIPITOR PO SCH (09:51)
[2019-03-21] MEDS: FLONASE NAS SCH (09:53)
--- NOTE | 2019-03-21 10:39 | DISCHARGE SUMMARY ---
ADMISSION DATE: 03/13/2019 DISCHARGE DATE: HISTORY OF PRESENT ILLNESS: Mr. Soni came in on 03/13/2019 complaining of shortness of breath. He is followed by Dr. Alla Matias. He is an 88-year-old male who has a history of COPD, mechanical aortic valve, hypertension, dementia, benign prostatic hypertrophy, chronic kidney disease. The patient was admitted to the hospital because of shortness of breath, along with productive cough. He had no chest pain. Patient describes some hemoptysis. X-ray of the chest done at the time of presentation did show evidence of pulmonary edema and pneumonia as well as having COPD. ER records indicate patient is on 2 liters oxygen at home, but had increased it to 4 liters prior to presentation without much relief. Evaluated in the emergency room and placed on BiPAP and admitted to the hospital. PAST MEDICAL HISTORY: Once again, a past medical history of COPD, hypertension, history of GI bleed, history of dementia, benign prostatic hypertrophy, hypertension, mechanical aortic valve. ADMISSION DIAGNOSES: 1. Acute respiratory failure, hypoxemic. Primary lung conditions being chronic obstructive pulmonary disease and pneumonia, as well as pulmonary edema. The patient was put on BiPAP and oxygen supplementation, started on antibiotics. 2. Chronic obstructive pulmonary disease exacerbation. He was maintained on nebulized bronchodilators, steroids and antibiotics. 3. Probable pneumonia on sputum culture. Obtained sputum culture and blood cultures. 4. Acute congestive heart failure, pulmonary edema. Monitored output, daily weights. 5. Mechanical heart valve. His INR was 2.38, which is appropriate. He did describe some hemoptysis and that seemed to have subsided. 6. Hypertension. Optimize blood pressure control. 7. Dementia. Continue supportive care. 8. Chronic kidney disease. Followup renal function and avoid nephrotoxic agents. 9. Abdominal aortic aneurysm status post repair. Obtain a CT of the abdomen and pelvis. 10. Benign prostatic hypertrophy. He is on doxazosin. 11. Elevated troponin levels, so we followed to see if there is a sign of ischemia. 12. History of total colectomy and colostomy. Ostomy care per protocol. 13. Prophylaxis. He was put on deep vein thrombosis prophylaxis and gastrointestinal prophylaxis. DIAGNOSTIC DATA: 1. The patient's abdominal ultrasound done on 03/14/2019, gallstones in the gallbladder. Mild gallbladder wall thickening. Recommended HIDA scan if asymptomatic. No acute abnormality of the aorta. Stable bilateral renal stones. 2. Chest and abdominal CT done on 03/14/2019, severe pulmonary emphysema, dense airspace consolidation both lower lobes, mainly in the bases suggesting pneumonia. Stable aneurysm, dilatation of thoracic and abdominal aorta. Other incidental nonacute findings were noted. 3. Chest x-ray on presentation on 03/13/2019. Pulmonary edema versus a little pneumonia. 4. Echocardiogram done on 03/14/2019, technically difficult study. Aortic valve was not well imaged. Mildly severe aortic stenosis suggested, mitral and tricuspid valves without evidence of structure abnormality. Estimated PA pressure was 35 mmHg. Aortic root was normal size. Left ventricular hypertrophy appreciated. Ejection fraction appeared to be at least 60%. No regional wall motion abnormalities. CONSULTATIONS: He had a cardiology consult obtained. Dr. Julio Blandon felt he had acute hypoxemic respiratory failure in the setting of chronic obstructive pulmonary disease, significant pulmonary fibrosis, probable acute pneumonia, cannot entirely exclude element of pulmonary edema. OTHER PROBLEMS: 1. Chronic obstructive pulmonary disease. 2. Pulmonary fibrosis. 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 3. Hypertension. 4. Aortic valve disorder, status post aortic valve replacement with mechanical prosthesis 18 years ago in [place], [place], for aortic stenosis. 5. Hyperlipidemia. HOSPITAL COURSE: So continued diuresis, gentle diuresis and considered pulmonary consultation. Dr. Stout was consulted. He felt this is an 88-year-old with significant pulmonary fibrosis noted on CT scan of the abdomen and pelvis in November 2018, now has fairly significant infiltrates in the lower lobes, most likely an acute infectious process, likely with a component of airspace bleeding, so augmented antibiotics to cover gram-negative coverage and began weaning steroids. Continue supplementary oxygen and watch daily INRs. Chest x-ray repeated on 03/16/2019, improved pulmonary edema. He showed steady improvement with diuresis and he had some delirium and confusion, but this improved and was requesting to go home on 03/21/2019. His chest x-ray was repeated on , stable sternotomy wires, stable cardiomegaly, pulmonary vascular congestion, stable advanced pulmonary fibrosis. No new infiltrates. We will check another chest x-ray, but he would like to go home. Of course, he would like to go home, we will try and get home health involved. He reports that he lives alone. DISCHARGE MEDICATIONS: He is on Lipitor 40 mg a day, ProAir 8.5 grams IV every 6 hours p.r.n., Symbicort 80/4.5 two puffs b.i.d., BuSpar 15 mg p.o. b.i.d., vitamin D3 at 1000 units p.o. daily, vitamin B12 at 1000 mcg p.o. daily, doxazosin 2 mg daily, famotidine 20 mg b.i.d., furosemide 325 mg every night at bedtime, Singulair 10 mg a day, Requip 4 mg at bedtime, Spiriva 18 mcg 1 inhalation daily, and he is on Coumadin 2 mg daily. His last Prothrombin time was 22.5 and he has remained between 21 and 23 on current Coumadin. PLAN: So, we will see if we can get him set up to go home today and get home health set up. Continue his supplementary O2. cc: Justin Mckinney MD
--- NOTE | 2019-03-21 10:54 | Diag Imaging Result Doc PS360 ---
EXAM: CHEST-2 VIEWS 03/21/2019 HISTORY: pneumonia TECHNIQUE: PA and lateral chest COMMENT: Compared to 03/19/2019 the interstitial opacities in the lung bases have improved. IMPRESSION: Improved pulmonary edema. Electronically signed by Fidencio Joseph 03/21/2019 10:52 AM
[2019-03-21 15:29] VITALS: BP 150/59
== END 2019-03-21 17:18 | disposition home health service (06) | DRG 177 ==
LOC: SUPCPDRO → ED 17:22 → EDIPHOLD 20:51 → SUATTDRO 20:51 → 4N 03-14 11:33
PROVIDERS: ATTEND Emergency Medicine

== ENCOUNTER 2019-04-18 11:09 | Inpatient (IN) ==
--- NOTE | 2019-04-18 12:51 | Diag Imaging Result Doc PS360 ---
CHEST-1 VIEW - 04/18/2019 INDICATION: AMS COMPARISON: 03/21/2019 FINDINGS: There is a stable aortic valve replacement. Heart size is top normal. There has been worsening in diffuse interstitial infiltrates bilaterally suggesting pulmonary edema. There are coarse interstitial opacities in the peripheral lung bases consistent with fibrosis as well. There is probably a skin fold in the right lung apex, as there are pulmonary markings seen beyond this line. Lungs are hyperexpanded compatible with COPD. IMPRESSION: Significant worsening interstitial infiltrates compatible with pulmonary edema. Pulmonary fibrosis. COPD. Probable skinfold in the right lung apex. Electronically signed by Ankush Otero 04/18/2019 12:48 PM
[2019-04-18] MEDS ORDERED: LASIX IV ONE (13:00)
[2019-04-18] MEDS ORDERED: DUONEB (A & A) INH ONE (13:00)
--- NOTE | 2019-04-18 14:08 | Diag Imaging Result Doc PS360 ---
CT HEAD W/O CONTRAST - 04/18/2019 INDICATION: AMS COMPARISON: 12/23/2017 FINDINGS: Stable advanced cerebral atrophy. 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 No intracranial mass or hemorrhage. The skull is intact. The sinuses are clear. IMPRESSION: No acute process. This exam was performed using automated exposure control, adjustment of mA or kV according to patient size, and/or use of iterative reconstruction technique Electronically signed by Ankush Otero 04/18/2019 2:06 PM
[2019-04-18 14:58] LABS: BASO# 0.03 X1000 (0.0-0.2); BASO% 0.4 % (0.0-0.8); EOS# 0.18 X1000 (0.0-0.7); EOS% 2.6 % (0.0-10.0); HEMATOCRIT 41.9 % (42.0-52.0); HEMOGLOBIN 13.4 g/dL (14.0-18.0); LYMPH# 0.84 X1000 (1.2-3.4); MCH 27.9 PG (27-31); MCV 87.1 FL (81-99); MONO# 0.44 X1000 (0.11-0.59); MONO% 6.3 % (1.7-9.3); MPV 10.1 FL (7.4-10.4); NEUT# 5.49 X1000 (1.4-6.5); NEUT% 78.7 % (42.2-75.2); PLT 164 X1000 (130-400); RBC 4.81 XMIL (4.7-6.1); RDW 16.1 % (11.5-14.5); WBC 6.98 X1000 (4.8-10.8)
[2019-04-18 15:05] LABS: INR 1.77
[2019-04-18 15:06] LABS: PTT 39.9 Seconds (22.3-41.8)
[2019-04-18 15:29] LABS: ALB/GLOB RATIO 1.6; ALBUMIN 3.6 g/dL (3.5-5.0); CALCIUM 8.9 mg/dL (8.8-10.2); CREATININE 1.6 mg/dL (0.7-1.2); POTASSIUM 4.7 mmol/L (3.5-5.1); TOTAL BILIRUBIN 0.74 mg/dL (0.20-1.00); TOTAL PROTEIN 5.8 g/dL (6.3-8.3)
[2019-04-18 15:34] LABS: URINE SOURCE CATH
[2019-04-18 15:40] LABS: BILIRUBIN URINE NEGATIVE (NEGATIVE); BLOOD URINE SMALL (NEGATIVE); COLOR YELLOW; GLUCOSE URINE NEGATIVE (NEGATIVE); KETONE URINE TRACE mg/dL (NEGATIVE); LEUKOCYTES URINE NEGATIVE (NEGATIVE); NITRITE URINE NEGATIVE (NEGATIVE); PH URINE 5.5; PROTEIN URINE 30 mg/dL (NEGATIVE); SP GRAVITY URINE 1.025; TURBIDITY URINE CLEAR (CLEAR); UROBILINOGEN URINE 2 mg/dL (NORMAL)
[2019-04-18 15:41] LABS: UR EPITHELIAL CELLS <10 /HPF (<10); URINE BACTERIA NEGATIVE /HPF; URINE RBC TNTC /HPF (<10)
--- NOTE | 2019-04-18 16:45 | EKG Report ---
Test Performed on : 04/18/2019 3:21:19 PM Test Reason : AMS Blood Pressure : / mmHG Vent. Rate : 084 BPM Atrial Rate : 084 BPM P-R Int : 250 ms QRS Dur : 142 ms QT Int : 422 ms P-R-T Axes : 099 -47 079 degrees QTc Int : 498 ms Sinus rhythm. with 1st degree AV block. Left axis deviation Nonspecific intraventricular block Cannot rule out Inferior infarct , age undetermined Abnormal ECG When compared with ECG of 15-MAR-2019 12:52, Sinus rhythm. has replaced Ectopic atrial rhythm. Nonspecific intraventricular block has replaced Left bundle branch block Minimal criteria for Inferior infarct are now present Unconfirmed Result
[2019-04-18] MEDS ORDERED: TYLENOL PO PRN (17:47)
[2019-04-18] MEDS ORDERED: ZOFRAN IV PRN (17:47)
--- NOTE | 2019-04-18 17:57 | PROVIDER DOCUMENTATION ---
This chart was entered by Marielle Amaya Scribe, acting as scribe for Jennifer Fernandez MD. HPI-General Adult - General Chief Complaint: Nausea/Vomiting Stated Complaint: dehydration/n/v Time Seen by Provider: 04/18/19 12:07 Source: patient, EMS Allergies/Adverse Reactions: Patient Allergies Allergy/AdvReac Type Severity Reaction Status Date / Time No Known Allergies Allergy Verified 03/13/19 18:31 Home Medications: Home Medication List Medication Instructions Recorded Confirmed Last Taken Type Buspirone [Buspar] 15 mg PO BID 01/19/13 04/18/19 03/13/19 History ATORVAstatin [Lipitor] 40 mg PO DAILY 11/23/16 04/18/19 03/13/19 History Albuterol Sulfate [Proair Hfa] 8.5 gm IH Q6H PRN 11/02/17 04/18/19 03/13/19 History Cyanocobalamin (Vitamin B-12) 1,000 mcg PO DAILY 11/02/17 04/18/19 03/13/19 History [Vitamin B12] Doxazosin Mesylate 2 mg PO DAILY 11/02/17 04/18/19 03/13/19 History Ferrous Sulfate 325 mg PO QHS 11/02/17 04/18/19 03/13/19 History Tiotropium [place] Inhaler 18 mcg IH DAILY 11/02/17 04/18/19 03/13/19 History [Spiriva] Warfarin [Coumadin] 2 mg PO QHS 11/02/17 04/18/19 03/13/19 History Budesonide/Formoterol Inhaler 2 puff INH RTBID inhaler 11/06/17 04/18/19 03/13/19 Rx [Symbicort 80/4.5 Microgm Inhaler] Ropinirole [Requip] 4 mg PO HS tablet 11/06/17 04/18/19 03/13/19 Rx Cholecalciferol (Vit D3) [Vitamin 1,000 unit PO DAILY tablet 12/25/17 04/18/19 03/13/19 Rx D3] Famotidine 20 mg PO BID 10/12/18 04/18/19 03/13/19 History Montelukast Sodium [Singulair] 10 mg PO DAILY 10/12/18 04/18/19 03/13/19 History Quetiapine [Seroquel] 0.5 tab PO QHS 04/18/19 04/18/19 Unknown History - History of Present Illness -Gen Adult Nature of Presenting Problems: 88yom presents to ED by EMS cc according to EMS AMS and nausea(this was treated in route to Ed and resolved) since this morning. EMS reports pt lives alone, is on 2lt of home o2 and [facility]. Pt denies any pain or LOC. Pt is on Coumadin for Mechanical heart valve, has a colostomy bag due to colon cancer. Pt is frail appearing but A&Ox3 upon exam. Location of Pain/Injury: reports: none Pain Radiation: reports: no radiation Quality of Pain: reports: none Onset/Duration: reports: this morning Timing: reports: improving Context/Activities at Onset: reports: light activity Modifying Factors: improves with: nothing Associated Symptoms: reports: denies symptoms Similar Symptoms Previously?: No Recently seen or treated by another doctor?: No Review of Systems - Adult - REVIEW OF SYSTEMS - ADULT Constitutional: reports: see HPI. denies: chills, fever, fatique Eyes: reports: no symptoms reported Ears, Nose, Mouth & Throat: reports: no symptoms reported Cardiovascular: reports: no symptoms reported Respiratory: reports: no symptoms reported Gastrointestinal: reports: see HPI, nausea. denies: diarrhea, vomiting Genitourinary: reports: no symptoms reported Musculoskeletal: reports: no symptoms reported Integumentary: reports: no symptoms reported Neurological: reports: see HPI, other (AMS) Psychiatric: reports: no symptoms reported Endocrine: reports: no symptoms reported Hematologic/Lymphatic: reports: no symptoms reported Allergic/Immunologic: reports: no symptoms reported All Other Systems: Reviewed and Negative Past History - Adult - PAST MEDICAL HISTORY-ADULT Review of Records: reports: Old Records Reviewed, Nursing Assessment Review, Medications Reviewed, Social history reviewed & non-contributory. Major Childhood Illnesses: reports: denies history Cardiovascular: reports: CAD, HTN, heart valve problem, hyperlipidemia, CT (with aortic aneurysm) Respiratory: reports: asthma, COPD Gastrointestinal: reports: GERD, other (rectal mass (no surgery til aneurysm repair); C-DIFF) Obstetrical/Gynecological: reports: denies history Genitourinary: reports: denies history Musculoskeletal: reports: denies history Neurological: reports: denies history Psychiatric: reports: anxiety Endocrine/Immune: reports: denies history Other Conditions: reports: denies history - PRIOR SURGERIES/PROCEDURES Surgical/Procedure History: reports: reviewed, not pertinent, bowel surgery, other (cataract removal, mechanical valve placement, partial removal of rectal mass, colon) - PRIOR HOSPITALIZATIONS Prior Hospitalizations: reports: for other non-related - IMMUNIZATION STATUS Childhood Immunizations: See Nurse Assessment Flu Vaccine: See Nurse Assessment - FAMILY HISTORY Family History: reviewed, not pertinent Physical Exam-General - PHYSICAL EXAM-ADULT Initial Vital Signs Reviewed: Yes - CONSTITUTIONAL General Appearance: appears well, alert, no apparent distress. negative: anxious, combative - EYES Eyes: PERRL/EOMI, pink conjunctivae. negative: photophobia - HEAD, EARS, NOSE, MOUTH & THROAT HENMT: normocephalic/atraumatic. negative: moist mucous membranes (dry), angioedema - NECK Neck: supple - RESPIRATORY Respiratory: chest non-tender, lungs clear, normal breath sounds. negative: wheezing - CARDIOVASCULAR Cardiovascular: normal peripheral pulses, regular rate, rhythm, no edema. negative: bradycardia, tachycardia - GASTROINTESTINAL (ABDOMEN) Abdominal Exam: normal bowel sounds, non tender, soft, other (colostomy bag on left side with brown stool in it). negative: rebound - MUSCULOSKELETAL Extremity: normal inspection. negative: deformity - SKIN Integumentary: normal color, warm/dry. negative: diaphoresis, jaundice - PSYCHIATRIC Psych/Mental Status: normal mood/affect, oriented x 3. negative: anxious, disheveled Progress - PLAN OF CARE/RESULTS Progress/Plan/Lab Results: Vital Signs - 8 hr 04/18/19 12:04 Temperature 97.6 F Pulse Rate 87 Respiratory Rate 19 Blood Pressure 123/71 O2 Sat by Pulse Oximetry 98 Orders Category Date Time Status NEWS Score 2-4:Order NEWS Lactate Series NOW Care 04/18/19 12:10 Active CHEST-1 VIEW [RAD] Stat Exams 04/18/19 12:[address] HEAD W/O CONTRAST [CT] Stat Exams 04/18/19 12:32 Ordered CBC WITH ELECTRONIC DIFF [HEME] Stat Lab 04/18/19 12:30 Uncollected COMPREHENSIVE METABOLIC PANEL [CHEM] Stat Lab 04/18/19 12:30 Uncollected PROTIME WITH INR [COAG] Stat Lab 04/18/19 12:30 Uncollected PTT [COAG] Stat Lab 04/18/19 12:30 Uncollected TROPONIN T HIGH SENSITIVITY Stat Lab 04/18/19 12:30 Uncollected URINALYSIS [URINALYSIS] Stat Lab 04/18/19 12:30 Uncollected EKG [EKG] Stat Ther 04/18/19 12:30 Ordered Result Diagrams: 04/18/19 14:28 04/18/19 14:28 - EKG 1 Time of EKG reading by physician:: 15:30 EKG Read and Signed by:: Jennifer Fernandez EKG Interpretation (*Must complete 3 of following elements*): Abnormal Rate: 84 Rhythm: sinus QRS: LBB MT Interval: prolonged Prior EKG Comparison: changes noted (When compared to prior ekg dated 03/15/2019, T wave inversions in inferolateral leads are no longer seen) - XRAY 1 XRAY: Bilateral XRAY Study: Chest Impression: See EMR Report (IMPRESSION: Significant worsening interstitial infiltrates compatible with pulmonary edema. Pulmonary fibrosis. COPD. Probable skinfold in the right lung apex. Electronically signed by Ankush Otero 04/18/2019 12:48 PM) - CT/MRI 1 CT Study: Head Impression: See EMR Report (IMPRESSION: No acute process. This exam was performed using automated exposure control, adjustment of mA or kV according to patient size, and/or use of iterative reconstruction technique Electronically signed by Ankush Otero 04/18/2019 2:06 PM) - CONSULTS/PCP/HOSPITALIST Notification #1 *Consult/PCP/Hospitalist*: Hospitalist Time Discussed: 17:30 Reason/Comments: Dr. Rivera Consult Disposition: Admit Departure - Departure Date of Disposition Decision: 04/18/19 Time of Disposition Decision: 17:30 DIAGNOSIS: KRYSTYNA (acute kidney injury), Elevated troponin CHF (congestive heart failure) Qualifiers: Heart failure type: unspecified Heart failure chronicity: acute on chronic Qualified Code(s): I50.9 - Heart failure, unspecified Pulmonary edema Qualifiers: Chronicity: acute Qualified Code(s): J81.0 - Acute pulmonary edema Disposition: ADMITTED INPATIENT 09 Certified Medical Emergency: Emergent Condition: Stable - Critical Care Note This patient required my direct & personal management of CC.: No Attestation - Physician/ ALEXIS Attestation Patient care was provided by Advanced Practice Provider:: No The physician spent face to face time with patient:: Yes Advanced Practice Provider documentation review:: Supervising physician onsite and consulted in the evaluation and care of this patient. The physician did have a face to face encounter with the patient. This chart was documented by the indicated scribe, (Marielle Amaya Scribe) and accurately reflects the services I performed and decisions made by me, Jennifer Fernandez MD, as attested by the provider's signature.
[2019-04-18 19:45] LABS: ALLEN TEST YES; BE 0.1 mmoll (-3.0-3.0); BLOOD TYPE ARTERIAL; HCO3-(ACT) 24.9 mmoll (20.0-26.0); METHB 1.4 % (0.0-1.5); O2(CT) 18.6 mL/dL (15.0-23.0); O2HB 94.8 % (95.0-99.0); PCO2(98.6) 35 mmHg (35-45); PO2(98.6) 83 mmHg (60-100); SAMPLE BLOOD; SAO2 98.2 % (95.0-100.0); THB 13.9 g/dL (11.5-17.4); pH(98.6) 7.44 (7.35-7.45)
[2019-04-18 19:47] LABS: MODALITY CANNULA
--- NOTE | 2019-04-18 19:48 | HISTORY AND PHYSICAL ---
ADDENDUM: The patient is 88, doing okay. His baseline issues are usually I think he has got COPD and CHF. In any case he came in for evaluation, was short of breath. He was found to be in heart failure and he will be admitted for treatment and the interstitial infiltrates are much worse than they were about a month ago, which I am not sure if that is from heart failure or other process so he will be admitted for treatment of COPD and CHF exacerbation and will see how he does. cc: Chris Rivera MD
--- NOTE | 2019-04-18 20:41 | HISTORY AND PHYSICAL ---
PRIMARY CARE PROVIDER: Alla Matias. CHIEF COMPLAINT: Shortness of breath. HISTORY OF PRESENT ILLNESS: Mr. Petros Soni is an 88-year-old male with a medical history of COPD, congestive heart failure with mechanical aortic valve, hypertension, dementia, who at times forgets to take his medications and chronic kidney disease. States that he has been having worsening shortness of breath and some lower extremity swelling. He denies fever, chills, chest pain, nausea, or vomiting. Essentially no other complaints. He does live alone. Apparently, in the ER note, he did have some nausea on the way into the hospital, but that had resolved. [facility] He is supposed to be on Coumadin by his INR is actually in normal range. I will admit him. He on imaging has some pulmonary edema. We will treat him for acute congestive heart failure. PAST MEDICAL HISTORY: 1. COPD. 2. Hypertension. 3. History of GI bleed. 4. History of dementia with medication. He forgets to take it sometimes. 5. BPH. 6. Hypertension. 7. Mechanical aortic valve. 8. History of benign colon mass with colostomy. PAST SURGICAL HISTORY: 1. MVR mechanical valve. 2. Bilateral hip fracture repair. 3. Total colectomy for benign mass. 4. Abdominal aortic aneurysm repair. SOCIAL HISTORY: Quit smoking in 2011. Prior to that he states he smoked around 2 to 3 packs per day. Denies alcohol or illicit drug use. He lives at home alone. FAMILY HISTORY: Positive for cancer. ALLERGIES: No known drug allergies. HOME MEDICATIONS: 1. Coumadin 2 mg p.o. nightly. 2. Ferrous sulfate 325 mg p.o. nightly. 3. Seroquel 25 mg p.o. nightly. 4. Buspirone 15 mg p.o. twice daily. 5. Doxazosin 2 mg p.o. daily. 6. Pepcid 20 mg p.o. twice daily. 7. Atorvastatin 40 mg p.o. daily. 8. ProAir every 6 hours p.r.n. 9. Singulair 10 mg p.o. daily. 10. Spiriva 18 mcg inhaled daily. 11. Vitamin B12 1000 mcg p.o. daily. 12. Requip 4 mg p.o. nightly. 13. Symbicort 80/4.5 two puffs inhaled twice daily. 14. Vitamin D3, 1000 units p.o. daily. REVIEW OF SYSTEMS: Fourteen point review of systems are complete and all were negative except for those mentioned above in the HPI. PHYSICAL EXAMINATION: VITAL SIGNS: Temperature 97.6 degrees, heart rate 82, respiratory rate 17, blood pressure 124/52, O2 saturation 99% on 2 L nasal cannula. GENERAL: Mr. Petros Soni is an 88-year-old male who is in no acute distress. He is able to answer some questions appropriately. HEENT: Atraumatic, normocephalic. Pupils equal, round, reactive to light. Extraocular movements intact. Mucous membranes are moist. NECK: Trachea midline. CARDIOVASCULAR: S1, S2. Regular rate and rhythm. No rubs, gallops, murmurs. No lower extremity edema, +2 dorsalis, +2 radials. Negative for JVD or carotid bruits. PULMONARY: Clear to auscultate. Bilateral breath sounds decreased in the bases. No accessory muscle use or work of breathing noted. GI: Soft, nontender, nondistended. Positive bowel sounds x4. Moves all extremities equally with decreased range of motion. NEUROLOGIC: Oriented times name and place. SKIN: Warm, dry, intact. LABORATORY DATA: White blood cells 6000, hemoglobin 13, hematocrit 41, platelet count 164,000. INR is 1.77, PTT is 39.9, sodium 143, potassium 4.7, BUN 30, creatinine is 1.6, glucose 118, calcium 8.9, bilirubin 0.74, AST 13, ALT 7. Troponin 43. ProBNP 1112. Albumin 3.6, lactate 1.4. Urinalysis 30 protein, trace ketones, small blood, 2 urobilinogen, 10 to 20 white blood cells, too numerous to count red blood cells. IMAGING: Chest x-ray, significantly worsening interstitial infiltrates compatible with pulmonary edema, pulmonary fibrosis, COPD. Head CT: No acute findings. EKG: Normal sinus rhythm with a first-degree AV block, 84 is the rate. QTc is 498. ASSESSMENT/PLAN: 1. Acute systolic congestive heart failure with pulmonary edema and complaints of shortness of breath and edema in the lower extremities. However, he does not really look like there is a lot of edema in the lower extremities. He does have pulmonary edema on a chest x-ray. He got 1 time dose of 40 of IV Lasix. He got albuterol Atrovent nebulizers x1. 2. Chronic obstructive pulmonary disease. Could be mild exacerbation with this as well. We will continue his Symbicort q.6 hours, DuoNeb, oxygen, Spiriva. 3. History of mechanical mitral valve replacement. He is supposed to be on Coumadin therapy. He states he sometimes forgets his medication and currently his INR is subtherapeutic. We will resume the Coumadin and if his INR is slow to increase we may do a bridge therapy, but given his age may just leave it at the Coumadin 2 mg p.o. nightly. 4. Hyperlipidemia. Continue statin. 5. Gastroesophageal reflux disease. Continue Pepcid. 6. Dementia. Continue Seroquel, BuSpar, Requip. He also forgets to take medications and lives at home alone. So, we will consult [employer]. 7. Deep venous thrombosis prophylaxis. He is on Coumadin. Dictated by MANUEL Hayes for Chris Rivera MD cc: MANUEL Hayes MD
[2019-04-18] MEDS ORDERED: SEROQUEL PO SCH (21:00)
[2019-04-18] MEDS ORDERED: FERROUS SULFATE PO SCH (21:00)
[2019-04-18] MEDS ORDERED: COUMADIN PO SCH (21:00)
[2019-04-18] MEDS ORDERED: REQUIP PO SCH (21:00)
[2019-04-18] MEDS: PEPCID PO SCH (22:26)
[2019-04-18] MEDS: BUSPAR PO SCH (22:26)
[2019-04-18] MEDS: SYMBICORT 80/4.5 MICROGM INHALER INH SCH (22:33)
[2019-04-18] MEDS: DUONEB (A & A) INH SCH (22:33)
[2019-04-19] MEDS: LASIX IV SCH ×2 (00:04→11:11)
[2019-04-19] MEDS: DUONEB (A & A) INH SCH ×3 (03:32→16:13)
[2019-04-19] MEDS ORDERED: SPIRIVA INH SCH (07:30)
--- NOTE | 2019-04-19 07:58 | EKG Report ---
Test Performed on : 04/19/2019 07:40:56 AM Test Reason : chest pain Blood Pressure : / mmHG Vent. Rate : 089 BPM Atrial Rate : 089 BPM P-R Int : 262 ms QRS Dur : 124 ms QT Int : 382 ms P-R-T Axes : 044 -43 093 degrees QTc Int : 464 ms Sinus rhythm. with 1st degree AV block. Left axis deviation Left bundle branch block Abnormal ECG When compared with ECG of 18-APR-2019 15:21, (Unconfirmed) Minimal criteria for Inferior infarct are no longer present Confirmed by Lucretia Kim MD ([id number]) on 04/19/2019 4:20:11 PM
[2019-04-19 08:09] LABS: BASO# 0.05 X1000 (0.0-0.2); BASO% 0.6 % (0.0-0.8); EOS% 6.4 % (0.0-10.0); HEMOGLOBIN 13.6 g/dL (14.0-18.0); LYMPH# 1.23 X1000 (1.2-3.4); LYMPH% 15.6 % (20.5-51.1); MCH 27.5 PG (27-31); MCHC 31.6 g/dL (33-37); MCV 86.9 FL (81-99); MONO# 0.57 X1000 (0.11-0.59); MONO% 7.3 % (1.7-9.3); MPV 9.9 FL (7.4-10.4); NEUT# 5.51 X1000 (1.4-6.5); NEUT% 70.1 % (42.2-75.2); PLT 176 X1000 (130-400); RBC 4.95 XMIL (4.7-6.1); RDW 15.8 % (11.5-14.5); WBC 7.86 X1000 (4.8-10.8)
[2019-04-19 08:20] LABS: INR 1.86; PROTIME 21.9 Seconds (11.0-16.0)
[2019-04-19 08:47] LABS: ALB/GLOB RATIO 1.1; ALBUMIN 3.5 g/dL (3.5-5.0); CALCIUM 9.4 mg/dL (8.8-10.2); CREATININE 1.6 mg/dL (0.7-1.2); MAGNESIUM 1.9 mg/dL (1.5-2.7); POTASSIUM 4.2 mmol/L (3.5-5.1); TOTAL BILIRUBIN 0.64 mg/dL (0.20-1.00); TOTAL PROTEIN 6.6 g/dL (6.3-8.3)
[2019-04-19] MEDS ORDERED: VITAMIN D PO SCH (09:00)
[2019-04-19] MEDS ORDERED: SINGULAIR PO SCH (09:00)
[2019-04-19] MEDS ORDERED: VITAMIN B-12 PO SCH (09:00)
[2019-04-19] MEDS ORDERED: CARDURA PO SCH (09:00)
[2019-04-19] MEDS: BUSPAR PO SCH (09:42)
[2019-04-19] MEDS: PEPCID PO SCH (09:42)
[2019-04-19] MEDS: SYMBICORT 80/4.5 MICROGM INHALER INH SCH (09:56)
--- NOTE | 2019-04-19 11:26 | Diag Imaging Result Doc PS360 ---
CT THORAX W/O CONTRAST - 04/19/2019 INDICATION: SOB COMPARISON: 03/14/2019 FINDINGS: There is stable extremely severe emphysema. There is significant chronic bronchitis. There is some residual interstitial opacity in the peripheral lung bases bilaterally compatible with pulmonary fibrosis and possibly edema or pneumonia. This has improved significantly since the prior chest CT. No pneumothorax or pleural effusion. Stable aortic valve replacement. Stable severe vascular disease of the aorta and great vessels. 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 Stable small benign cyst in the anterior liver. No acute abnormalities in the upper abdomen. There is a new compression fracture in the lower thoracic spine, at T11. There is only about 20% loss of height here. Bones are very osteopenic. IMPRESSION: 1. Improvement in the infiltrates in the lung bases. Residual pulmonary fibrosis or edema/infiltrate. 2. Severe COPD. 3. New compression fracture in the lower thoracic spine. This exam was performed using automated exposure control, adjustment of mA or kV according to patient size, and/or use of iterative reconstruction technique Electronically signed by Ankush Otero 04/19/2019 11:24 AM
--- NOTE | 2019-04-19 14:31 | PULMONOLOGY CONSULTATION ---
DATE: 04/19/2019 REQUESTING PROVIDER: Dr. Axel Rivera. REASON FOR CONSULTATION: Respiratory failure. HISTORY OF PRESENT ILLNESS: This is an 88-year-old, male with a medical history of COPD, hypertension, dementia, and benign prostatic hyperplasia. His last admission to our facility was from 03/13/19 to 03/21/19 for acute hypoxemic respiratory failure secondary to COPD exacerbation, pneumonia and acute congestive heart failure with pulmonary edema. He presented to the ER yesterday morning with nausea and altered mental status per the ER physician documentation. Initial workup in the ER revealed acute systolic congestive heart failure with pulmonary edema, shortness of breath, and bilateral lower extremity edema. He has been admitted to the medical floor for further evaluation and management. Patient currently is lying in bed with no acute distress noted. He is on nasal cannula at 2 L, which is patient's baseline oxygen demand, and tolerates well. He states he came to the hospital because "I could not get my breath and I am disoriented". Currently, he is alert and oriented x3. He can tell me his full name. He knows where he is and why he came to the hospital. He denied nausea at this time. He has an ostomy that he has not emptied anything for 2 days, but he reports no constipation or diarrhea. He reports very rare wheezing and cough. He has no fever, chills, bowel habit change, urination discomfort, pedal edema, orthopnea, or paroxysmal nocturnal dyspnea. He reports his shortness of breath has been resolved at this time. There is no family at the bedside. PAST MEDICAL AND SURGICAL HISTORY: 1. COPD, on continuous home oxygen at 2 L. [facility]. 2. Chronic anticoagulation with prior mechanical aortic valve replacement. 3. Hypertension. 4. Dementia. 5. Benign prostatic hyperplasia. 6. History of GI bleeding. 7. Status post bilateral hip fracture repair. 8. Status post total colectomy for benign mass. 9. Status post abdominal aortic aneurysm repair. 10. Recent hospitalization from 03/13/19-03/21/19 with pneumonia, COPD exacerbation and congestive heart failure exacerbation. SOCIAL HISTORY: The patient lives at home alone. He states his niece helps to take care of him. He is a former heavy smoker. He used to smoke 2 to 3 packs per day and quit in 2011. He is a former heavy drinker too. He used to drink heavily and got drunk frequently. He quit drinking in 2011. He has no history of illicit drug use. FAMILY HISTORY: The patient's mother of stomach cancer. ALLERGIES: No known drug allergies. REVIEW OF SYSTEMS: A 10-point review of systems was conducted and the pertinent is listed within the HPI, otherwise noncontributory. PHYSICAL EXAMINATION: Vital Signs: Temperature 98.2, blood pressure 146/60, pulse 94, respiratory rate 18, oxygen saturation 96% on nasal cannula at 2 L. He has had no fever since admission. General: Chronically ill-appearing, seen resting comfortably in bed at this time. HEENT: Atraumatic, normocephalic. Trachea midline. Pupils equal, round, reactive to light. Respiratory: Even and unlabored. Symmetrical excursion. Auscultation revealed occasionally mild expiratory wheezing bibasilarly with prolonged expiratory phase and some rhonchi. Occasional rhonchi on the right side of the lung. Cardiovascular: S1 and S2 appreciated. Gastrointestinal: Soft, nontender, flat. Bowel sounds present. There was a small amount of greenish liquid stool in the ostomy bag noted. Extremities: No edema. No cyanosis. No clubbing. Revealed very dry and flaky skin on the bilateral lower extremities. Neurologic: Alert and oriented x3. Speech slowly and repeating sentences at times. Follow simple commands, answer simple questions. LABORATORY DATA: White blood cells 7.86, hemoglobin 14.6, hematocrit 43.0, platelets 176,000. Sodium 143, potassium 4.2, chloride 102, carbon dioxide 28, BUN 26, creatinine 1.6, glucose 110. IMAGING DATA: Initial chest x-ray on 04/18/2019 showed significant worsening interstitial infiltrates compatible with pulmonary edema, pulmonary fibrosis, COPD, and probable skinfold in the right lung apex. ASSESSMENT: This is an 88-year-old, male with a medical history of chronic obstructive pulmonary disease on continuous home oxygen therapy, chronic anticoagulation with prior mechanical aortic valve replacement, hypertension, demential, benign prostatic hyperplasia. He has been admitted to the medical floor since 04/18/2019 with acute systolic congestive heart failure with pulmonary edema, shortness of breath, and bilateral lower extremity edema. 1. Acute systolic congestive heart failure with pulmonary edema, shortness of breath, and bilateral lower extremity edema. Clinically improving. The patient currently denies significant shortness of breath and no bilateral lower extremity edema noted at this time. 2. Chronic obstructive pulmonary disease with chronic hypoxemic respiratory failure. The patient probably has mild exacerbation. He is on nasal cannula at 2 L, which is his baseline oxygen demand, he tolerates very well. 3. Pulmonary fibrosis identified by chest x-ray on 04/18/2019. 4. Acute kidney injury. 5. Dementia. 6. Recent hospitalization from 03/13/19-03/21/19 with pneumonia, COPD exacerbation and CHF exacerbation. PLAN: 1. Supplemental oxygen. 2. Bronchodilators including DuoNeb, Symbicort, and Spiriva. 3. Diuretic as tolerated. 4. We ordered a CT scan at this time. We will follow it up closely. 5. GI and DVT prophylaxis. 6. Further recommendations pending hospital course. Thank you for the courtesy of this consult. Dr. Hernandez did the examination, evaluation, management, and orders. MANUEL doing dictation for Dr. Hernandez according to his direction. Dictated by MANUEL Pena for Zoë Hernandez MD cc: MANUEL Pena MD [facility]
[2019-04-19 15:23] VITALS: BP 156/60
--- NOTE | 2019-04-19 16:40 | PROGRESS NOTE ---
DATE: 04/19/2019 SUBJECTIVE: Patient has no major complaints. He is breathing a lot better. He wants to go home. OBJECTIVE: Vital Signs: Blood pressure 156/60, heart rate of 89, respiratory 14, temperature 98.1 degrees. Cardiovascular: Regular rate and rhythm. Pulmonary: Diminished at the bases. Gastrointestinal: Abdomen soft, nontender, nondistended. Bowel sounds are positive. Cardiac exam: He has a mechanical S2. I feel like he has a systolic murmur which I felt was more of a crescendo/ decrescendo murmur. LABORATORY DATA: White count 7, hemoglobin and hematocrit 13 and 43, platelets 176,000. Creatinine of 1.6. PROBLEM LIST: Congestive heart failure type syndrome but it may be related to his aortic stenosis. At least he had aortic stenosis based on his echo in February. I will get a Cardiology opinion just to see if they think this is contributing to his shortness of breath. He has an aortic mitral valve but it is from 2001. He has not been very compliant with his Coumadin. He is subtherapeutic. He says he takes his medicines regularly, but forgets doses sometimes. I am going to drop down his Lasix just because I do not want to over diurese him and he seems like he is improved and I am not entirely sure if his hypoxia issues are related to his aortic stenosis, heart failure or chronic obstructive pulmonary disease. We are going to continue breathing treatments and follow. Pulmonary has been consulted. He is not wheezing so I have not added any steroids. CT was ordered which actually showed improved infiltrates, pulmonary fibrosis, severe COPD, new compression fracture of his lower thoracic spine, but did not show a lot of pulmonary edema, so this hypoxia may be multifactorial. DISPOSITION: Pending clinical workup. I will defer to Cardiology about repeating his echo. He just had 1 in February. cc: Chris Rivera MD
--- NOTE | 2019-04-19 18:30 | CARDIOLOGY CONSULTATION ---
DATE: 04/19/2019 CONSULTATION REQUESTED BY: Hospitalist service. REASON FOR CONSULT: The reason is dyspnea; concern about heart failure. HISTORY: Mr. Soni is an 88-year-old [place], who presented to the hospital on April 18 brought by the family because of increasing confusion and some nausea. The patient upon initial encounter, received a chest x-ray that was reported as indicating worsening interstitial infiltrates compatible with pulmonary edema, pulmonary fibrosis. However, a CT scan of the chest that was done within 24 hours shows "improvement in the infiltrates in the lung bases" with residual pulmonary fibrosis or edema and severe COPD. He has new compression fracture in the lower thoracic spine. The patient's proBNP level was checked and was 1112 mcg/mL. The previous proBNP level that was done on March 14, when he was in the hospital was 8407, indicating that if anything, he is better than back in February. The patient denies having chest pain. He denies having any swelling. The recorded weight according to the records is 165 pounds yesterday and it was 178 pounds the last time that he was in the hospital on March 21. PAST MEDICAL HISTORY: Basically extensive. He has had previous aortic valve replacement years ago. He has advanced COPD. He has hyperlipidemia, hypertension. He is on long-term anticoagulation with warfarin. His Coumadin is monitored by the [facility]. He does not follow up with any of the [facility] Cardiologists. SURGICAL HISTORY: He has had the aforementioned aortic valve replacement in 2001. He has had abdominal aortic aneurysm repair. He has had colectomy. He has also had a colostomy. He has suffered a fracture of the hip in April and November 2016. Then he suffered another fracture of the hip on 10/19/2017. SOCIAL HISTORY: He lives by himself. He is a . Next of kin is Gris Johns. Patient is a of the [place]. He quit smoking a long time ago. FAMILY HISTORY: Really noncontributory. HOME MEDICATIONS: At the time of this admission included the following: He is on albuterol, atorvastatin 40 mg daily, buspirone 15 mg twice a day, vitamin D3 1000 daily. Vitamin B12 1000 mcg daily. Doxazosin 2 mg daily, famotidine 20 mg twice a day, ferrous sulfate 325 mg at bedtime. Seroquel 0.5 mg at bedtime, Requip 4 mg at bedtime, warfarin 2 mg at bedtime. Ipratropium/ Spiriva 80 mcg daily. PHYSICAL EXAMINATION: Vital signs: Blood pressure 156/60, temperature 98.1 degrees, pulse 89, respirations 14. General: Patient is awake, alert, oriented, in no distress, chronically ill. HEENT: Unremarkable. Chest: Diminished breath sounds. Heart: Sounds are regular rhythmic with a closing click of the aortic valve. There is no gallop. Abdomen: Nontender. Extremities: Showed no edema. Pulses are diminished. Neurologic: Nonfocal. Moves 4 extremities. BLOOD WORK: White cell count 7816, hemoglobin 13.6 g. Sodium 143, potassium 4.2, BUN 26, creatinine 1.6. IMPRESSION: 1. Patient who presents to the hospital with some altered mental status. The reason for that is unclear. He certainly does not show any indication that his heart status has changed or worsen. His pro BNP is much better than the last time this was checked back in February of this year. His CT of the chest shows basically very advanced emphysema/ chronic obstructive pulmonary disease. 2. Status post aortic valve replacement. Suboptimal anticoagulation. INR is less than 2. 3. Suspect dementia. 4. Status post colectomy and colostomy. 5. Status post aortic abdominal aneurysm repair. 6. History of hypertension. RECOMMENDATIONS: From a cardiac viewpoint, I really do not have nothing else to add to whatever you are doing. I would suggest that you try to keep the INR between 2 and 2.5. Upon discharge, instruct the patient to follow up with his usual provider at the [facility]. Please call me if you have any questions or concerns. I will be glad to discuss the case over the telephone. cc: Wilber Anderson MD [facility]
[2019-04-19] MEDS ORDERED: LIPITOR PO SCH (21:00)
[2019-04-20] MEDS ORDERED: LASIX IV SCH (09:00)
--- NOTE | 2019-05-23 15:27 | DISCHARGE SUMMARY ---
ADMISSION DATE: 04/18/2019 DISCHARGE DATE: 04/19/2019 HISTORY AND HOSPITAL COURSE: The patient is 88. He came in with shortness of breath and COPD. He is very cachectic. He has interstitial infiltrates. Chest CT showed improving infiltrates, pulmonary fibrosis, and severe COPD. He also has an aortic valve replacement. 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 He has a compression fracture. Pulmonary and Cardiology were consulted. Pulmonary recommended O2, treating heart failure, bronchodilators, they got the CT, and diuresis. Cardiology was consulted and felt that they did have anything else to add, to keep his Coumadin to 2 to 2.5, [facility] We really did not do anything. Then, patient got very adamant on the , but he needed to be discharged. He was walking in the diaz and ended up, we did discharge him. DISCHARGE MEDICATIONS: Warfarin 2 mg at bedtime, ferrous sulfate 325, Seroquel 25, BuSpar 15 b.i.d., doxazosin 2 daily, Pepcid 20 daily, Lipitor 40 daily, albuterol every six hours, Singulair 10 daily, Spiriva 18 daily, B12 1000 mcg daily, MiraLAX 17 daily, Requip 4 at bedtime, I think that was a new medicine, but I think that was after a readmission, Symbicort and vitamin D3. DISCHARGE CONDITION: Stable. Unfortunately, I think patient came back in with small bowel obstruction within, I think, 24 hours. DISCHARGE TIME: 32 minutes. cc: Chris Rivera MD
== END 2019-04-19 18:29 | disposition home health service (06) | DRG 292 ==
LOC: SUPCPDRO → ED 11:09 → 3N 18:31
PROVIDERS: ATTEND Internal Medicine

== ENCOUNTER 2019-04-20 17:20 | Inpatient (IN) ==
--- NOTE | 2019-04-20 18:27 | Diag Imaging Result Doc PS360 ---
EXAM: KUB ABDOMEN 04/20/2019 HISTORY: pain, constipation TECHNIQUE: KUB COMMENT: There are surgical clips in the mid abdomen and upper left pelvis. There is a large amount of stool in the ascending colon. There is some small bowel dilatation in the midabdomen. Compared to 11/02/2017 the quantity of stool in the right colon has increased and there is more small bowel dilatation. The stomach is not distended. There is no evidence of organomegaly or mass. There is extensive arteriosclerosis. There are bilateral bipolar hip prostheses. IMPRESSION: Constipation. Questionable ileus. Electronically signed by Fidencio Joseph 04/20/2019 6:24 PM
--- NOTE | 2019-04-20 18:31 | PROVIDER DOCUMENTATION ---
HPI-Abdominal Pain/GI Problem - General Chief Complaint: Abdominal Pain Stated Complaint: constipation Time Seen by Provider: 04/20/19 17:39 Source: patient Allergies/Adverse Reactions: Patient Allergies Allergy/AdvReac Type Severity Reaction Status Date / Time No Known Allergies Allergy Verified 04/20/19 18:35 Home Medications: Home Medication List Medication Instructions Recorded Confirmed Last Taken Type Buspirone [Buspar] 15 mg PO BID 01/19/13 04/20/19 03/13/19 History ATORVAstatin [Lipitor] 40 mg PO DAILY 11/23/16 04/20/19 03/13/19 History Albuterol Sulfate [Proair Hfa] 8.5 gm IH Q6H PRN 11/02/17 04/20/19 03/13/19 History Cyanocobalamin (Vitamin B-12) 1,000 mcg PO DAILY 11/02/17 04/20/19 03/13/19 History [Vitamin B12] Doxazosin Mesylate 2 mg PO DAILY 11/02/17 04/20/19 03/13/19 History Ferrous Sulfate 325 mg PO QHS 11/02/17 04/20/19 03/13/19 History Tiotropium [place] Inhaler 18 mcg IH DAILY 11/02/17 04/20/19 03/13/19 History [Spiriva] Warfarin [Coumadin] 2 mg PO QHS 11/02/17 04/20/19 03/13/19 History Budesonide/Formoterol Inhaler 2 puff INH RTBID inhaler 11/06/17 04/20/19 03/13/19 Rx [Symbicort 80/4.5 Microgm Inhaler] Ropinirole [Requip] 4 mg PO HS tablet 11/06/17 04/20/19 03/13/19 Rx Cholecalciferol (Vit D3) [Vitamin 1,000 unit PO DAILY tablet 12/25/17 04/20/19 03/13/19 Rx D3] Famotidine 20 mg PO BID 10/12/18 04/20/19 03/13/19 History Montelukast Sodium [Singulair] 10 mg PO DAILY 10/12/18 04/20/19 03/13/19 History Quetiapine [Seroquel] 0.5 tab PO QHS 04/18/19 04/20/19 Unknown History - History of Present Illness-ABD Nature of Presenting Problems: 88 yom presents with generalized abdominal pain, nausea and decreased ostomy output. He was seen 4 days ago an offered admission and declined. Abdominal Pain Onset Location: reports: generalized abdomen Pain Radiation: reports: no radiation Quality of Pain: reports: aching Severity in ED: reports: moderate Onset/Duration: reports: 24 hours ago Timing: reports: still present Activities at Onset: reports: none Exposure to sick contacts?: No Associated Symptoms: reports: nausea, vomiting Last BM: other (ostomy no output per patient, minimal in bag) Rectal Bleeding: reports: none Rectal Pain: reports: none Emesis Description: reports: none Bruising or Bleeding Gums?: No Similar Symptoms Previously?: No Recently seen or treated by another doctor?: No Review of Systems - Adult - REVIEW OF SYSTEMS - ADULT Constitutional: reports: no symptoms reported. denies: see HPI, chills, fever, fatique, night sweats, weight gain, weight loss, other Eyes: reports: no symptoms reported. denies: see HPI, discharge, dry eyes, decreased vision, blurred vision, double vision, eye pain, redness, other Ears, Nose, Mouth & Throat: reports: no symptoms reported. denies: see HPI, ear discharge, ear pain, hearing loss, tinnitus, epistaxis, sinus problem, nose pain, loose teeth, mouth/dental pain, mouth swelling, hoarseness, throat pain, throat swelling, other Cardiovascular: reports: no symptoms reported. denies: see HPI, chest pain, edema, heart murmur, irregular heart rate, orthopnea, palpitations, poor circulation, PND, syncope, other Respiratory: reports: no symptoms reported. denies: see HPI, chronic cough, cough, dyspnea on exertion, excessive sputum production, hemoptysis, pleurisy, shortness of breath, wheezing, other Gastrointestinal: reports: see HPI, abdominal pain, nausea, vomiting. denies: no symptoms reported, hematemesis, constipation, diarrhea, difficulty swallowing, frequent heartburn, poor appetite, rectal bleeding, other Genitourinary: reports: no symptoms reported. denies: see HPI, dysuria, discharge, frequency, flank pain, frequent UTI's, hematuria, hesitency, incontinence, urinary retention, urgency, other Musculoskeletal: reports: no symptoms reported. denies: see HPI, bone pain, back pain, frequent leg cramps, joint pain, joint swelling, muscle aches, muscle weakness, neck pain, other Integumentary: reports: no symptoms reported. denies: see HPI, hives, hair loss, itching, mole changes, nail changes, rash, skin sores/ulcer, skin thickening, other Neurological: reports: no symptoms reported. denies: see HPI, ataxia, d izziness/vertigo, headache/migraines, loss of balance, numbness, paresthesia, seizure, slurred speech, syncope, tremors, other Psychiatric: reports: no symptoms reported. denies: see HPI, anxiety, anti- depressant use, alcohol/drug dependence, depression, emotional problems, insomnia, panic attacks, suicidal thoughts, other Endocrine: reports: no symptoms reported. denies: see HPI, change in skin pigment, excessive sweating, goiter, cold intolerance, heat intolerance, increased hunger, increased thirst, polyuria, other Hematologic/Lymphatic: reports: no symptoms reported. denies: see HPI, blood clots, easy bruising, low blood count, lymphedema, prolonged bleeding, swollen lymph nodes, transfusions, other Allergic/Immunologic: reports: no symptoms reported. denies: see HPI, allergic reactions, allergic rhinitis, asthma, eczema, food allergy, frequent infections, hay fever, hives, positive PPD, urticaria, other Past History - Adult - PAST MEDICAL HISTORY-ADULT Review of Records: reports: Nursing Assessment Review, Social history reviewed & non-contributory. Major Childhood Illnesses: reports: denies history Cardiovascular: reports: CAD, HTN, heart valve problem, hyperlipidemia, NE (with aortic aneurysm) Respiratory: reports: asthma, COPD Gastrointestinal: reports: GERD, other (rectal mass (no surgery til aneurysm repair); C-DIFF) Obstetrical/Gynecological: reports: denies history Genitourinary: reports: denies history Musculoskeletal: reports: denies history Neurological: reports: denies history Psychiatric: reports: anxiety Endocrine/Immune: reports: denies history Other Conditions: reports: denies history - PRIOR SURGERIES/PROCEDURES Surgical/Procedure History: reports: reviewed, not pertinent, bowel surgery, other (cataract removal, mechanical valve placement, partial removal of rectal mass, colon) - PRIOR HOSPITALIZATIONS Prior Hospitalizations: reports: for other non-related - IMMUNIZATION STATUS Childhood Immunizations: See Nurse Assessment Flu Vaccine: See Nurse Assessment - FAMILY HISTORY Family History: reviewed, not pertinent Physical Exam-General - PHYSICAL EXAM-ADULT Initial Vital Signs Reviewed: Yes - CONSTITUTIONAL General Appearance: alert, no apparent distress, thin - EYES Eyes: PERRL/EOMI, pink conjunctivae - HEAD, EARS, NOSE, MOUTH & THROAT HENMT: normocephalic/atraumatic, moist mucous membranes, normal ENT inspection - NECK Neck: non-tender, full range of motion, supple - RESPIRATORY Respiratory: chest non-tender, lungs clear, normal breath sounds, no pleuratic chest pain, no respiratory distress, no accessory muscle use - CARDIOVASCULAR Cardiovascular: normal peripheral pulses, regular rate, rhythm, no edema, no gallop, no JVD, no murmur - GASTROINTESTINAL (ABDOMEN) Abdominal Exam: soft, tenderness. negative: normal bowel sounds (hypoactive) - LYMPHATIC Lymphatic: no adenopathy - MUSCULOSKELETAL Back Exam: normal inspection, no CVA tenderness, no vertebral tenderness Extremity: normal range of motion, non-tender, normal gait, normal inspection Peripheral Pulses: radial (R): 2+, radial (L): 2+ - SKIN Integumentary: normal color, normal turgor, warm/dry - NEUROLOGIC Neurologic: grossly normal - PSYCHIATRIC Psych/Mental Status: normal mood/affect, oriented x 3 Progress - PLAN OF CARE/RESULTS Progress/Plan/Lab Results: Vital Signs - 8 hr 04/20/19 18:15 Temperature 98.3 F Pulse Rate 83 Respiratory Rate 16 Blood Pressure 117/70 O2 Sat by Pulse Oximetry 95 Orders Category Date Time Status KUB ABDOMEN [RAD] Stat Exams 04/20/19 17:39 Completed CBC WITH ELECTRONIC DIFF [HEME] Stat Lab 04/20/19 17:39 Uncollected COMPREHENSIVE METABOLIC PANEL [CHEM] Stat Lab 04/20/19 17:39 Uncollected UA NIMS W/REFLEX CULT [URINALYSIS] Stat Lab 04/20/19 17:39 Uncollected Result Diagrams: 04/20/19 18:59 04/20/19 18:59 - XRAY 1 XRAY Study: Abdomen Impression: See EMR Report (EXAM: KUB ABDOMEN 04/20/2019 HISTORY: pain, constipation TECHNIQUE: KUB COMMENT: There are surgical clips in the mid abdomen and upper left pelvis. There is a large amount of stool in the ascending colon. There is some small bowel dilatation in the midabdomen. Compared to 11/02/2017 the quantity of stool in the right colon has increased and there is more small bowel dilatation. The stomach is not distended. There is no evidence of organomegaly or mass. There is extensive arteriosclerosis. There are bilateral bipolar hip prostheses. IMPRESSION: Constipation. Questionable ileus. Electronically signed by Fidencio Joseph 04/20/2019 6:24 PM 04/20/194 Interpreting Physician: Fidencio Joseph MD Dictated Date/Time: 04/20/191822 cc: Phyllis Nova; Alla Matias MD) - CT/MRI 1 CT Study: Abdomen, Pelvis Impression: See EMR Report (EXAM: CT ABDOMEN/PELVIS W/O CONTRAST 04/20/2019 HISTORY: abd pain, possible ileus TECHNIQUE: This exam was performed using automated exposure control, adjustment of mA or kV according to patient size, and/or use of iterative reconstruction technique. COMMENT: There is increased interstitial opacity in the lung bases as well as emphysematous change. This is improved since 03/14/2019. There are numerous cysts in the kidneys. There is no evidence of hydronephrosis. There are vascular calcifications in both kidneys. There is some pericholecystic fluid. There are stones in the gallbladder. The aorta is calcified. There is a aorto bifemoral graft. There are bilateral hip prostheses. The urinary bladder is somewhat distended. There is dilatation of some of the ileal loops there is a transition zone in the left upper quadrant around image 31. This was not the case at the time the previous examination of 10/12/2018. It is worse than on the previous study of 03/14/2019. The ileum is not distended. IMPRESSION: 1. Improved pulmonary edema and/or pneumonia compared to 03/14/2019. This may have been superimposed on pulmonary fibrosis. 2. Partial small bowel obstruction. 3. Constipation. 4. Cholelithiasis and possible cholecystitis. Electronically signed by Fidencio Joseph 04/20/2019 8:33 PM 04/20/192032 Interpreting Physician: Fidencio Joseph MD Dictated Date/Time: 04/20/192023 cc: Phyllis Nova; lAla Matias MD) - CONSULTS/PCP/HOSPITALIST Notification #1 *Consult/PCP/Hospitalist*: Dr. Helton Time Discussed: : Consult Disposition: Admit #2 Consult: Dr. Greco Time Discussed: Reason/Comments: Consult Disposition: Admit (see orders) Departure - Departure Date of Disposition Decision: 04/20/19 Time of Disposition Decision: 21:29 DIAGNOSIS: CKD (chronic kidney disease), Partial small bowel obstruction, Anticoagulant long-term use Disposition: ADMITTED INPATIENT 09 Certified Medical Emergency: Emergent Condition: Stable Referrals and Follow-Ups: Alla Matias MD [Primary Care Provider] - - Critical Care Note This patient required my direct & personal management of CC.: No Attestation - Physician/ ALEXIS Attestation Patient care was provided by Advanced Practice Provider:: Yes Advanced Practice Provider:: Phyllis Nova Advanced Practice Provider documentation review:: The Mid-level provider documentation, treatment plan and medical decision making was reviewed by the physician who agrees with all treatment and medical decision making by the MLP. The physician spent face to face time with patient:: No Advanced Practice Provider documentation review:: Supervising physician onsite and consulted in the evaluation and care of this patient. The physician did not have a face to face encounter with the patient.
[2019-04-20] MEDS ORDERED: NS 1,000 ML IV ONE (19:08)
[2019-04-20 19:12] LABS: BASO# 0.05 X1000 (0.0-0.2); BASO% 0.6 % (0.0-0.8); EOS% 8.1 % (0.0-10.0); HEMATOCRIT 45.8 % (42.0-52.0); HEMOGLOBIN 14.3 g/dL (14.0-18.0); MCH 26.8 PG (27-31); MCHC 31.2 g/dL (33-37); MCV 85.9 FL (81-99); MONO% 5.8 % (1.7-9.3); MPV 9.7 FL (7.4-10.4); NEUT# 6.09 X1000 (1.4-6.5); NEUT% 70.5 % (42.2-75.2); PLT 200 X1000 (130-400); RBC 5.33 XMIL (4.7-6.1); WBC 8.64 X1000 (4.8-10.8)
[2019-04-20 19:40] LABS: ALB/GLOB RATIO 1.5; ALBUMIN 3.8 g/dL (3.5-5.0); CALCIUM 9.3 mg/dL (8.8-10.2); CREATININE 1.6 mg/dL (0.7-1.2); POTASSIUM 4.5 mmol/L (3.5-5.1); TOTAL BILIRUBIN 0.82 mg/dL (0.20-1.00); TOTAL PROTEIN 6.3 g/dL (6.3-8.3)
[2019-04-20 20:05] LABS: INR 1.85; PROTIME 21.7 Seconds (11.0-16.0)
[2019-04-20 20:06] LABS: PTT 41.8 Seconds (22.3-41.8)
--- NOTE | 2019-04-20 20:36 | Diag Imaging Result Doc PS360 ---
EXAM: CT ABDOMEN/PELVIS W/O CONTRAST 04/20/2019 HISTORY: abd pain, possible ileus TECHNIQUE: This exam was performed using automated exposure control, adjustment of mA or kV according to patient size, and/or use of iterative reconstruction technique. COMMENT: There is increased interstitial opacity in the lung bases as well as emphysematous change. This is improved since 03/14/2019. There are numerous cysts in the kidneys. There is no evidence of hydronephrosis. There are vascular calcifications in both kidneys. There is some pericholecystic fluid. There are stones in the gallbladder. The aorta is calcified. There is a aorto bifemoral graft. There are bilateral hip prostheses. The urinary bladder is somewhat distended. There is dilatation of some of the ileal loops there is a transition zone in the left upper quadrant around image 31. This was not the case at the time the previous examination of 10/12/2018. It is worse than on the previous study of 03/14/2019. The ileum is not distended. IMPRESSION: 1. Improved pulmonary edema and/or pneumonia compared to 03/14/2019. This may have been superimposed on pulmonary fibrosis. 2. Partial small bowel obstruction. 3. Constipation. 4. Cholelithiasis and possible cholecystitis. Electronically signed by Fidencio Joseph 04/20/2019 8:33 PM
[2019-04-20 21:22] LABS: URINE SOURCE CATH
[2019-04-20 21:27] LABS: BILIRUBIN URINE NEGATIVE (NEGATIVE); BLOOD URINE SMALL (NEGATIVE); COLOR YELLOW; GLUCOSE URINE NEGATIVE (NEGATIVE); KETONE URINE NEGATIVE (NEGATIVE); LEUKOCYTES URINE TRACE (NEGATIVE); NITRITE URINE NEGATIVE (NEGATIVE); PH URINE 5.5; PROTEIN URINE TRACE mg/dL (NEGATIVE); SP GRAVITY URINE 1.022; TURBIDITY URINE CLEAR (CLEAR); UROBILINOGEN URINE NORMAL (NORMAL)
[2019-04-20 21:50] LABS: UR EPITHELIAL CELLS <10 /HPF (<10); URINE BACTERIA NEGATIVE /HPF; URINE CASTS NONE SEEN; URINE CRYSTALS NONE SEEN; URINE SMALL ROUND CELLS NONE SEEN; URINE YEAST NONE SEEN
[2019-04-21] MEDS ORDERED: MORPHINE IV PRN (01:52)
[2019-04-21] MEDS ORDERED: ZOFRAN IV PRN (01:52)
[2019-04-21] MEDS ORDERED: VENTOLIN HFA INH PRN (01:53)
--- NOTE | 2019-04-21 02:46 | GENERAL SURGERY CONSULTATION ---
DATE: 04/20/2019 CHIEF COMPLAINT: Decreased ostomy output, with vomiting yesterday. REASON FOR CONSULTATION: Partial bowel obstruction. HISTORY OF PRESENT ILLNESS: This is an 88-year-old gentleman with multiple medical problems. He is vasculopathic. He has had aortic valve replacement which seems to be in conjunction with a thoracic aneurysm repair, aortic aneurysm repair, as well as abdominal aortic aneurysm repair. He has also had a colectomy apparently for colon cancer and an end colostomy many years ago. He is chronically anticoagulated with Coumadin for aortic valve. He has dementia, hypertension, BPH, he has had bilateral hip fractures, COPD and congestive heart failure. PAST SURGICAL HISTORY: He has had a median sternotomy with an aortic valve replacement, mechanical, on Coumadin. He has had an abdominal aortic aneurysm repair and presumably a thoracic aortic aneurysm repair, but that is unclear. He has also had a colectomy with an end colostomy many years ago. He has had bilateral hip arthroplasties. SOCIAL HISTORY: He lives alone in [place]. He smoked 2-3 packs per day, but quit in 2011. He also used to drink heavily. He is a [place] and receives his care via the [facility] in [place]. FAMILY HISTORY: Significant for stomach cancer. REVIEW OF SYSTEMS: Ten-point review of systems negative other than what is mentioned in HPI. PHYSICAL EXAMINATION: On exam, he is afebrile. Pulse 83, blood pressure 117/70, oxygen saturation 95%. He is 156 pounds, 6 feet.General: He is an alert, chronically ill-appearing gentleman. He is cachectic. HEENT: No scleral icterus. No cervical mass. Cardiovascular: Normal rate. Pulmonary: No increased work of breathing. His abdomen is soft, nontender, nondistended. His ostomy is pink, viable. There is scant amount of stool in the bag. Integument is warm and dry. Psychiatric: Appropriate affect. Neurologic: No gross deficits. Lymphatic: I do not feel any cervical, axillary or inguinal adenopathy. LABORATORY DATA: White count is 8, hematocrit 45, platelets 200,000. INR is 1.85. Creatinine is 1.6. Bilirubin 0.82. Alkaline phosphatase mildly elevated at 140. Urinalysis shows trace leukocytes. ASSESSMENT AND PLAN: This is an 88-year-old gentleman with apparent partial bowel obstruction. He is having some stool per his ostomy. I reviewed his CT scan and his labs. He is chronically anticoagulated. We will plan on starting on a heparin drip tomorrow and monitor his renal function. He would be a very poor operative candidate, given his numerous abdominal operations, and suspect that this will resolve. He cannot say when his last colonoscopy was, but he has not had any bleeding. He is quite cachectic and chronically ill. We will hold off on nasogastric tube now, as he has not vomited since yesterday and he is having some ostomy output, but we will continue hydration and monitoring going forward. I have discussed with the hospitalist. Will follow along. cc: Miguel Angel Greco MD
[2019-04-21] MEDS: PROTONIX IV SCH (05:37)
[2019-04-21] MEDS: NS 1,000 ML IV SCH ×2 (06:34→20:00)
[2019-04-21 07:00] LABS: BASO# 0.09 X1000 (0.0-0.2); EOS# 0.72 X1000 (0.0-0.7); EOS% 7.7 % (0.0-10.0); HEMATOCRIT 44.3 % (42.0-52.0); HEMOGLOBIN 13.7 g/dL (14.0-18.0); LYMPH# 1.29 X1000 (1.2-3.4); LYMPH% 13.8 % (20.5-51.1); MCH 27.1 PG (27-31); MCHC 30.9 g/dL (33-37); MCV 87.5 FL (81-99); MONO# 0.62 X1000 (0.11-0.59); MONO% 6.6 % (1.7-9.3); MPV 10.1 FL (7.4-10.4); NEUT# 6.61 X1000 (1.4-6.5); NEUT% 70.9 % (42.2-75.2); PLT 192 X1000 (130-400); RBC 5.06 XMIL (4.7-6.1); WBC 9.33 X1000 (4.8-10.8)
[2019-04-21 07:05] LABS: INR 1.84; PROTIME 21.6 Seconds (11.0-16.0)
[2019-04-21 07:06] LABS: PTT 42.5 Seconds (22.3-41.8)
[2019-04-21 07:17] LABS: ALB/GLOB RATIO 1.1; ALBUMIN 3.5 g/dL (3.5-5.0); CALCIUM 9.3 mg/dL (8.8-10.2); CREATININE 1.4 mg/dL (0.7-1.2); POTASSIUM 4.4 mmol/L (3.5-5.1); TOTAL BILIRUBIN 1.12 mg/dL (0.20-1.00); TOTAL PROTEIN 6.6 g/dL (6.3-8.3)
[2019-04-21] MEDS ORDERED: HEPARIN 25,000 UNITS/D5W 25,000 UNIT/250 ML IV.SOLN IV SCH ×3 (08:00→21:13)
[2019-04-21] MEDS: SYMBICORT 80/4.5 MICROGM INHALER INH SCH (08:09)
[2019-04-21] MEDS: SPIRIVA INH SCH (08:09)
[2019-04-21] MEDS ORDERED: HEPARIN IV ONE (09:21)
--- NOTE | 2019-04-21 16:32 | HISTORY AND PHYSICAL ---
PRIMARY CARE PROVIDER: Dr. Matias with the DC. DATE AND TIME: 04/20/2019 at 2345. CHIEF COMPLAINT: Abdominal pain. HISTORY OF PRESENT ILLNESS: Mr. Soni is an 88-year-old male who presented to the ER this evening with complaints of generalized abdominal pain. He has also reported some nausea though denies any vomiting. The patient was just recently admitted to our facility. He was treated for initially what was believed to be congestive heart failure. The patient was noted to have a congestive heart failure type syndrome. He was also noted to have advanced emphysema, COPD, suboptimal anticoagulation with INR that was less than 2 status post aortic valve replacement. He also did have some dementia noted. The patient was just discharged yesterday on April 19. He states today that he did begin to have generalized abdominal pain. He reports some nausea but denies any vomiting or diarrhea. The patient states that he also came to the ER for evaluation, because after his abdominal pain started, he stated that "something did not feel right in my head." The patient does have dementia. He did have some altered mental status noted during his last admission. The patient states that the feeling in his head is gone at this time. He is alert and oriented x4. He was able to answer questions and follow commands appropriately. The patient actually reports also that his abdominal pain has subsided at this time as well. He denies any headache, dizziness, shortness of breath or cough. He denies any abdominal pain at present. He denies any diarrhea. He denies any hematochezia or melena. The patient does have a colostomy noted to his abdomen. He does have some liquid brown stool noted. He denies any pain, numbness, tingling or swelling in extremities. Upon evaluation in the ER, they did perform a CT of the abdomen and pelvis which did show the patient has improved pulmonary edema and/or pneumonia compared to 03/14/2019. This may have been superimposed on pulmonary fibrosis. He has had partial small bowel obstruction noted and constipation. He does have cholelithiasis and possible cholecystitis noted as well. The patient will be placed in placed to the surgical floor for inpatient admission for further treatment evaluation of a partial small bowel obstruction.. PAST MEDICAL HISTORY: 1. COPD. 2. Hypotension. 3. History of GI bleed. 4. History of dementia. 5. BPH. 6. Mechanical aortic valve replacement. 7. History of benign colon mass with colostomy placement. 8. GERD. 9. Long-term anticoagulation with Coumadin secondary to aortic valve replacement. PAST SURGICAL HISTORY: 1. Mechanical aortic valve replacement. 2. Abdominal aortic aneurysm repair. 3. Bilateral hip fracture repair. 4. Total colectomy secondary to benign mass. SOCIAL HISTORY: The patient quit smoking in 2011. Prior to that, he smoked approximately 2-3 packs a day. He reports no alcohol or illicit drug use. Lives at home alone. FAMILY HISTORY: Positive for cancer. ALLERGIES: No known drug allergies. HOME MEDICATIONS: 1. ProAir HFA inhaler 2 puffs inhaled q.6 hours p.r.n. 2. Lipitor 40 mg p.o. daily. 3. Symbicort 84/4.5 mcg inhaler 2 puffs inhaled b.i.d. 4. BuSpar 15 mg p.o. b.i.d. 5. Vitamin D3, 1000 units p.o. daily. 6. Vitamin B12 1000 mcg p.o. daily. 7. Doxazosin mesylate 2 mg p.o. daily. 8. Famotidine 20 mg p.o. b.i.d. 9. Ferrous sulfate 320 mg p.o. at bedtime. 10. Singulair 10 mg p.o. daily. 11. Seroquel at 50 mg tablet half a tablet p.o. at bedtime. 12. Requip 4 mg p.o. at bedtime. 13. Spiriva 2 puffs inhaled once daily. 14. Coumadin 2 mg p.o. at bedtime. DIAGNOSTIC DATA/LABORATORY RESULTS: White blood cell count is 8640, hemoglobin 14.3, hematocrit is 45.8, platelet count is 200,000. The PT is 21.7, INR is 1.85, PTT is 41.8. Sodium 141, potassium 4.5, chloride 101, serum bicarbonate is 29, BUN 33, creatinine 1.6, GFR 41. Glucose 107, calcium 9.3. Liver function tests within normal limits except for alkaline phosphatase slightly elevated at 140. Urinalysis positive for trace protein, small blood, trace leukocytes and white blood cells. It was negative for glucose, ketones, nitrites, or bacteria. CT abdomen and pelvis without contrast showed improved pulmonary edema and/or pneumonia compared to 03/14/2019. This may be superimposed on pulmonary fibrosis. Partial small- bowel obstruction. Constipation. Cholelithiasis and possible cholecystitis. PHYSICAL EXAMINATION: VITAL SIGNS: Temperature 98.3 degrees, heart rate 83, respirations 16, blood pressure is 117/70, oxygen saturation is 95% on room air. GENERAL: Mr. Soni is a 88-year-old male who is resting in the ER stretcher. He is in no acute distress. He was awake, alert, and able to answer questions appropriately. HEENT: Head is atraumatic, normocephalic. Pupils are equal, round, reactive to light, 3 mm bilaterally and brisk. Oral mucosa is moist. NECK: Supple. Trachea midline. CARDIOVASCULAR: Patient had S1, S2 present. He has a heart murmur as well though he does have a regular rate and rhythm. PULMONARY: Patient has symmetrical chest expansion bilaterally. Lung sounds were clear to auscultation in bilateral gomes. ABDOMEN: Soft, does not appear to be distended. He was nontender upon palpation. Bowel sounds are present in all 4 quadrants, were normoactive. EXTREMITIES: No cyanosis or edema noted. ASSESSMENT/PLAN: 1. Small-bowel obstruction. For treatment of this, we will place the patient NPO at this time. We will provide some gentle intravenous hydration. We will monitor his fluid volume status closely. The patient was just recently discharged from the hospital with respiratory complications from his previous history of lung disease as well as a congestive heart failure type syndrome. Dr. Greco has evaluated the patient. The patient's stomach is not overtly distended. He is not having nausea, vomiting. He did want to hold off on nasogastric tube. I also did speak with Dr. Greco regarding the patient's anticoagulation status. As previously mentioned above, he does have a history of a mechanical aortic valve replacement and does take anticoagulant, Coumadin. Dr. Greco requested that the patient be placed on a heparin drip. He does have an acute kidney injury at this time. Creatinine is elevated at 1.6. Dr. Greco did request that the heparin drip be started in the morning on April 21. We will follow Dr. Greco's recommendations. Heparin drip per protocol has been placed. We will continue to follow. 2. History of mechanical aortic valve replacement. We will continue with heparin drip per protocol as mentioned above, to be started in the morning. 3. Chronic anticoagulation. The patient does take Coumadin. We will continue treatment as mentioned above in #1 and 2. 4. Acute kidney injury. We will provide some gentle intravenous hydration. We will avoid nephrotoxic medications and renally dose medicines as necessary. 5. Chronic obstructive pulmonary disease. We have continued the patient's regularly prescribed medications of Symbicort, Spiriva, and ProAir HFA inhaler. 6. History of dementia. 7. Asymptomatic bacteriuria. Patient does have leukocytes and white blood cells noted. He complains of no other associated symptoms. He denies any dysuria. 8. Gastroesophageal reflux disease. We will continue Protonix 40 mg p.o. q.12 hours. 9. Deep vein thrombosis prophylaxis provided with above-mentioned heparin drip. The patient was placed on the surgical floor with telemetry. He will have vital signs q.4 hours. We will do strict intake and output, incentive spirometry. We will repeat a CBC, CMP in the morning. Further orders and recommendations pending hospital course, diagnostic studies, and physician evaluation. Dictated by MANUEL Hood for Juno Helton MD cc: Juno Helton MD MTDD
--- NOTE | 2019-04-21 18:59 | PROGRESS NOTE ---
DATE: 04/21/2019 SUBJECTIVE: The patient has no major complaints. OBJECTIVE: Vital Signs: Blood pressure 121/61, heart rate of 72, respiratory rate of 19, temperature degrees 98.2, 97% on room air. Cardiovascular: Regular rate and rhythm. Pulmonary: Bilateral breath sounds clear to auscultation. Gastrointestinal: Abdomen was soft, nontender, nondistended. Bowel sounds are diminished, hypoactive. LABORATORY DATA: White count is 9, hemoglobin and hematocrit 13 and 44, platelets 192,000. BUN and creatinine [address] last night showed improved pulmonary fibrosis, partial small bowel obstruction, and there was question of cholelithiasis with cholecystitis. ASSESSMENT/PLAN: 1. Partial small bowel obstruction. He is NPO. He is on gentle hydration as far as fluids. No NG tube at this point. 2. Mechanical aortic valve replacement. He is on a heparin drip until we can decide if he is going to need instrumentation, although he would be high risk. He has an aortic valve, but now he has aortic stenosis associated with it. It is probably not a candidate for any further intervention. Certainly not open heart surgery at this point. 3. Chronic renal insufficiency. Aware. I will repeat his plain films tomorrow. Repeat labs and monitor. cc: Chris Rivera MD
--- NOTE | 2019-04-21 19:52 | GENERAL SURGERY PROGRESS NOTE ---
DATE: 04/21/2019 SUBJECTIVE: No abdominal pain. He has had some ostomy output today. No fevers. No tachycardia. OBJECTIVE: Vital signs: Blood pressure 120/61. General: He is alert. Cardiovascular: Normal rate. Pulmonary: No increased work of breathing. Abdomen: Soft, nontender. Ostomy has stool and air in the bag. LABS: White count is 9, hematocrit 44. Creatinine is 1.4. INR is 1.84. ASSESSMENT AND PLAN: This is an 88-year-old gentleman with apparent partial bowel obstruction. He has multiple issues. We will continue bowel rest. He seems to have return of bowel function. I think the hospitalist is going to start him on a heparin drip as part of a bridge given his aortic valve. I think this is reasonable. I doubt he will need it for too long. cc: Miguel Angel Greco MD
[2019-04-22] MEDS: DUONEB (A & A) INH SCH ×4 (00:27→22:55)
[2019-04-22] MEDS: SYMBICORT 80/4.5 MICROGM INHALER INH SCH ×3 (00:27→19:50)
[2019-04-22 03:05] LABS: BASO# 0.09 X1000 (0.0-0.2); BASO% 1.4 % (0.0-0.8); EOS# 0.66 X1000 (0.0-0.7); EOS% 9.9 % (0.0-10.0); HEMATOCRIT 41.5 % (42.0-52.0); HEMOGLOBIN 12.9 g/dL (14.0-18.0); LYMPH# 1.31 X1000 (1.2-3.4); LYMPH% 19.7 % (20.5-51.1); MCH 27.1 PG (27-31); MCHC 31.1 g/dL (33-37); MCV 87.2 FL (81-99); MONO# 0.47 X1000 (0.11-0.59); MONO% 7.1 % (1.7-9.3); MPV 9.6 FL (7.4-10.4); NEUT# 4.12 X1000 (1.4-6.5); NEUT% 61.9 % (42.2-75.2); PLT 171 X1000 (130-400); RBC 4.76 XMIL (4.7-6.1); RDW 15.9 % (11.5-14.5); WBC 6.65 X1000 (4.8-10.8)
[2019-04-22] MEDS: PROTONIX IV SCH (03:26)
[2019-04-22 03:48] LABS: CALCIUM 8.8 mg/dL (8.8-10.2); CREATININE 1.2 mg/dL (0.7-1.2)
--- NOTE | 2019-04-22 08:57 | Diag Imaging Result Doc PS360 ---
ABDOMEN FLAT/UPRIGHT - 04/22/2019 INDICATION: sbo COMPARISON: 04/20/2019 FINDINGS: There is a nonobstructive bowel gas pattern. No free air or abdominal calcifications. No significant constipation. IMPRESSION: No acute disease. Electronically signed by Ankush Otero 04/22/2019 8:55 AM
[2019-04-22] MEDS: SPIRIVA INH SCH (09:46)
[2019-04-22] MEDS ORDERED: HEPARIN 25,000 UNITS/D5W 25,000 UNIT/250 ML IV.SOLN IV SCH ×2 (12:29→19:30)
--- NOTE | 2019-04-22 15:50 | GENERAL SURGERY PROGRESS NOTE ---
DATE: 04/22/2019 SUBJECTIVE: He is resting comfortably. No events overnight. No vomiting. OBJECTIVE: General: He is sleeping. Cardiovascular: Normal rate. Pulmonary: No increased work of breathing. Abdomen: Soft. There is gas and stool in the bag. LABORATORY DATA: White count 6, hematocrit 41, creatinine is 1.2. ASSESSMENT AND PLAN: 88-year-old gentleman with partial bowel obstruction, seems to resolved. It would be reasonable to advance his diet. Dr. Pena is following the patient for the weekend. cc: Miguel Angel Greco MD
--- NOTE | 2019-04-22 19:43 | PROGRESS NOTE ---
DATE: 04/22/2019 SUBJECTIVE: Patient has no major complaints. His abdominal pain is better. Nausea is better. Shortness of breath is okay. OBJECTIVE: Blood pressure 143/64, heart rate of 82, respiratory rate of 18, temperature 98.1 degrees.Cardiovascular: Regular rate and rhythm. Pulmonary: Bilateral breath sounds clear to auscultation. GI: Was soft, nontender, nondistended. Bowel sounds are positive. White count 6, hemoglobin 12 and hematocrit 41, platelets 171,000. BUN and creatinine are 28 and 1.2, which is an improvement. PROBLEM LIST: 1. Small bowel obstruction. We think that has resolved. I am going to resume his Coumadin because it is subtherapeutic and we are going to have to get him back on his Coumadin and off the heparin drip versus Lovenox. 2. Mechanical aortic valve. Again, trying a goal INR around 3 and we will continue to follow. He does have some aortic stenosis, but at this point is just being managed medically. 3. Chronic renal failure which is actually somewhat improved. His GFR is actually right around 2, stage II disease. We will continue to follow closely. 4. Chronic obstructive pulmonary disease appears to be compensated. DISPOSITION: Pending his clinical status. cc: Chris Rivera MD
[2019-04-22] MEDS ORDERED: COUMADIN PO SCH (21:00)
[2019-04-23] MEDS: PROTONIX IV SCH ×2 (01:23→22:28)
[2019-04-23] MEDS: SODIUM CHLORIDE 0.9% INJ SCH ×2 (01:23→22:28)
[2019-04-23] MEDS ORDERED: HEPARIN 25,000 UNITS/D5W 25,000 UNIT/250 ML IV.SOLN IV SCH ×2 (03:30→18:21)
[2019-04-23 07:56] LABS: BASO# 0.06 X1000 (0.0-0.2); BASO% 1.1 % (0.0-0.8); EOS# 0.45 X1000 (0.0-0.7); EOS% 7.9 % (0.0-10.0); HEMATOCRIT 40.4 % (42.0-52.0); HEMOGLOBIN 12.5 g/dL (14.0-18.0); LYMPH# 1.08 X1000 (1.2-3.4); MCH 27.1 PG (27-31); MCHC 30.9 g/dL (33-37); MCV 87.4 FL (81-99); MONO# 0.38 X1000 (0.11-0.59); MONO% 6.7 % (1.7-9.3); MPV 10.1 FL (7.4-10.4); NEUT# 3.71 X1000 (1.4-6.5); NEUT% 65.3 % (42.2-75.2); PLT 200 X1000 (130-400); RBC 4.62 XMIL (4.7-6.1); RDW 15.6 % (11.5-14.5); WBC 5.68 X1000 (4.8-10.8)
[2019-04-23 08:08] LABS: PROTIME 23.2 Seconds (11.0-16.0)
[2019-04-23 08:11] LABS: CALCIUM 8.9 mg/dL (8.8-10.2); CREATININE 1.2 mg/dL (0.7-1.2); POTASSIUM 3.9 mmol/L (3.5-5.1)
[2019-04-23] MEDS: SPIRIVA INH SCH (09:13)
[2019-04-23] MEDS: DUONEB (A & A) INH SCH ×3 (09:13→21:55)
[2019-04-23] MEDS: SYMBICORT 80/4.5 MICROGM INHALER INH SCH ×2 (09:13→21:55)
--- NOTE | 2019-04-23 17:23 | PROGRESS NOTE ---
DATE: 04/23/2019 He says today he has not had a bowel movement but there is liquid in his ostomy bag. He does have bowel sounds. OBJECTIVE: Blood pressure is 151/53, heart rate of 75, respiratory rate of 19, temperature 98.7 degrees.Cardiovascular: Regular rate and rhythm. Pulmonary: Bilateral breath sounds clear to auscultation. GI: Soft, nontender, nondistended. Bowel sounds are positive. LAB: White count 5, hemoglobin and hematocrit 12 and 40, platelets 200,000. INR 2. PROBLEM LIST: 1. Small bowel obstruction which has resolved. We will advance his diet and follow. Surgery is following. 2. Mechanical aortic valve. Again, target INR around 3 but his is 2 which is actually a lot higher than I thought it would be. We will continue Coumadin and follow. 3. Chronic renal dysfunction. Numbers are stable. 4. Chronic obstructive pulmonary disease appears to be compensated. 5. We will continue to monitor closely. There is really not a ton of options for him. cc: Chris Rivera MD
[2019-04-23] MEDS ORDERED: COUMADIN PO SCH (21:00)
[2019-04-24 08:14] LABS: INR 2.93; PROTIME 31.4 Seconds (11.0-16.0)
[2019-04-24] MEDS: SPIRIVA INH SCH (09:16)
[2019-04-24] MEDS: SYMBICORT 80/4.5 MICROGM INHALER INH SCH ×2 (09:16→20:08)
[2019-04-24] MEDS: DUONEB (A & A) INH SCH ×3 (09:17→22:38)
--- NOTE | 2019-04-24 17:54 | PROGRESS NOTE ---
DATE: 04/24/2019 SUBJECTIVE: The patient has no major complaints. He is having bowel movements. No pain. No nausea, no vomiting. He is tolerating full liquids without difficulty. OBJECTIVE: Blood pressure is 173/59, heart rate 67, respiratory rate 17, temperature 98.4 degrees, 99% on room air.Cardiovascular: Regular rate and rhythm. Pulmonary: Bilateral breath sounds. Clear to auscultation. GI: Soft, nontender, nondistended. Bowel sounds are positive. His INR today is 2.9, which is therapeutic. PROBLEM LIST: Small-bowel obstruction, which is resolving. I am going to go ahead and advance his diet, mechanical aortic valve. INR is already up to 3. I think I may back down on his Coumadin just because I do not want him to overcorrect. He is very thin and will see how he does. DISPOSITION: 1. Pending his clinical status but I think if he is stable tomorrow, we may be able to get him home and see how he does ambulating. 2. Congestive heart failure appears to be compensated. We will continue to monitor. He is not a surgical candidate. 3. Chronic obstructive pulmonary disease exacerbation. He is also stabilizing. cc: Chris Rivera MD
[2019-04-24] MEDS ORDERED: COUMADIN PO SCH (21:00)
[2019-04-25 05:24] LABS: INR 3.72
[2019-04-25 05:26] LABS: AGAP 11; BUN 12 mg/dL (8-22); CALCIUM 9.1 mg/dL (8.8-10.2); CHLORIDE 106 mmol/L (98-107); COSMO 278; ESTIMATED GFR > 60; GLUCOSE 108 mg/dL (70-104); POTASSIUM 4.2 mmol/L (3.5-5.1); SODIUM 139 mmol/L (136-145); TCO2 22 mmol/L (25-35)
[2019-04-25] MEDS: PRILOSEC PO SCH (06:04)
[2019-04-25 06:35] LABS: BASO# 0.03 X1000 (0.0-0.2); BASO% 0.3 % (0.0-0.8); EOS# 0.42 X1000 (0.0-0.7); EOS% 4.1 % (0.0-10.0); HEMATOCRIT 41.6 % (42.0-52.0); HEMOGLOBIN 13.1 g/dL (14.0-18.0); LYMPH# 1.21 X1000 (1.2-3.4); LYMPH% 11.8 % (20.5-51.1); MCH 27.1 PG (27-31); MCHC 31.5 g/dL (33-37); MCV 86.1 FL (81-99); MONO# 0.56 X1000 (0.11-0.59); MONO% 5.5 % (1.7-9.3); MPV 9.9 FL (7.4-10.4); NEUT# 8.03 X1000 (1.4-6.5); NEUT% 78.3 % (42.2-75.2); PLT 181 X1000 (130-400); RBC 4.83 XMIL (4.7-6.1); RDW 15.4 % (11.5-14.5); WBC 10.25 X1000 (4.8-10.8)
[2019-04-25] MEDS: DUONEB (A & A) INH SCH ×3 (09:53→21:00)
[2019-04-25] MEDS: SPIRIVA INH SCH (09:54)
[2019-04-25] MEDS: SYMBICORT 80/4.5 MICROGM INHALER INH SCH ×2 (09:54→20:55)
--- NOTE | 2019-04-25 18:47 | PROGRESS NOTE ---
DATE: 04/25/2019 SUBJECTIVE: The patient did report some nausea and vomiting this morning. OBJECTIVE: Vital signs: Blood pressure 120/59, heart rate 66, respiratory rate of 16, temperature 98.2 degrees, 95% on room air. Cardiovascular: Regular rate and rhythm. Pulmonary: Bilateral breath sounds, clear to auscultation. GI: Soft, nontender, nondistended. Bowel sounds were positive. LABORATORY DATA: White count 10, hemoglobin and hematocrit 13 and 41, platelets 181,000. INR is up to 3.7. PROBLEM LIST: 1. Partial small bowel obstruction. He seems to be doing okay. Advance diet, although he did have some nausea and vomiting. May repeat his abdomen films tomorrow. 2. Congestive heart failure with a mechanical aortic valve. It appears to be compensated. His INR is a bit supratherapeutic, which has not been a typical issue for him, but we are going to continue to monitor. 3. Chronic obstructive pulmonary disease is stable. DISPOSITION: I am going to see how he does with PT because I am not sure how well he can ambulate. cc: Chris Rivera MD
--- NOTE | 2019-04-25 20:55 | GENERAL SURGERY PROGRESS NOTE ---
DATE: 04/25/2019 SUBJECTIVE: His ostomy is functioning. He is tolerating a diet. No fevers. No tachycardia. OBJECTIVE: Vital signs: Blood pressure 102/45. General: He is alert. Cardiovascular: Normal rate. Abdomen: Soft. Ostomy bag has stool and gas in the bag. LABS: Reviewed. White count is 10, hematocrit 41. Creatinine is 1.0. INR is 3.72. ASSESSMENT AND PLAN: This is a gentleman admitted with a bowel obstruction that seems to have resolved. He has multiple medical issues and a complicated surgical history. Would continue low residual GI soft diet, and otherwise defer management to medical service. No plans for surgical intervention. cc: Miguel Angel Greco MD
[2019-04-26] MEDS: PRILOSEC PO SCH ×2 (05:56→08:20)
[2019-04-26] MEDS: DUONEB (A & A) INH SCH ×4 (07:29→21:30)
[2019-04-26] MEDS: SYMBICORT 80/4.5 MICROGM INHALER INH SCH ×2 (07:29→20:24)
[2019-04-26] MEDS: SPIRIVA INH SCH (07:30)
--- NOTE | 2019-04-26 08:42 | Diag Imaging Result Doc PS360 ---
EXAM: ABDOMEN FLAT/UPRIGHT HISTORY: sbo TECHNIQUE: Two views COMPARISON: 04/22/2019 FINDINGS: Prominent stool in the proximal colon. The bowel loops are not dilated. No organomegaly. There are surgical clips in the abdomen and pelvis. Prominent atherosclerosis. IMPRESSION: There is constipation, but no definite bowel obstruction Electronically signed by Kenyon Trivedi 04/26/2019 8:40 AM
[2019-04-26 12:37] LABS: INR 2.81; PROTIME 30.4 Seconds (11.0-16.0)
--- NOTE | 2019-04-26 19:06 | PROGRESS NOTE ---
DATE: 04/26/2019 SUBJECTIVE: Patient has no major complaints. OBJECTIVE: Vital Signs: Blood pressure is 139/50, heart rate of 76, respiratory rate 18, temperature 97.9 degrees, 93% on room air. Cardiovascular: Regular rate and rhythm. Pulmonary: Bilateral breath sounds clear to auscultation. Gastrointestinal: Soft, nontender, nondistended. Bowel sounds are positive. LABORATORY DATA: Everything looks pretty good. INR fortunately is 2.8. PROBLEM LIST: 1. Small bowel obstruction, appears to be resolved. He is on a regular diet. 2. Chronic obstructive pulmonary disease. Appears to be relatively well compensated. We will continue to follow. 3. Debilitation. He seems to be doing okay. I could not get a sense. I guess we are looking at a home exercise. I do not think he will agree to go to that but he says he is home alone which I find curious, but in any case, I anticipate possible discharge tomorrow. 4. Mechanical mitral valve. He seems to be doing okay from that standpoint. cc: Chris Rivera MD
[2019-04-26] MEDS: MIRALAX PO SCH (21:59)
[2019-04-26] MEDS: COUMADIN PO SCH (22:00)
[2019-04-27] MEDS: PRILOSEC PO SCH ×2 (05:46→06:50)
[2019-04-27] MEDS ORDERED: DUONEB (A & A) ONE (08:04)
[2019-04-27] MEDS: SYMBICORT 80/4.5 MICROGM INHALER INH SCH ×2 (08:05→22:29)
[2019-04-27] MEDS: SPIRIVA INH SCH (08:06)
[2019-04-27] MEDS: MIRALAX PO SCH (09:47)
[2019-04-27] MEDS: DUONEB (A & A) INH SCH ×3 (13:22→22:30)
--- NOTE | 2019-04-27 20:26 | PROGRESS NOTE ---
DATE: 04/27/2019 SUBJECTIVE: The patient has no complaints. OBJECTIVE: Vital Signs: Blood pressure 158/76, heart rate 77, respiratory rate 17, temperature 97.5, 98% on room air. Cardiovascular: Regular rate and rhythm. Pulmonary: Bilateral breath sounds, clear to auscultation. GI: Soft, nontender, nondistended. Bowel sounds are positive. His ostomy has good output. ASSESSMENT/PLAN: 1. Partial small bowel obstruction. He seems to be doing better. 2. Chronic obstructive pulmonary disease. Appears to be compensated. 3. Mechanical mitral valve. He is therapeutic on his INR. It was 2.8. I have downgraded his Coumadin to 1 mg. 4. Chronic weakness, debilitation. I am still waiting on his ability to ambulate. Apparently he uses a walker, but I anticipate discharge tomorrow if stable. cc: Chris Rivera MD
[2019-04-27] MEDS: COUMADIN PO SCH (21:49)
[2019-04-28] MEDS: PRILOSEC PO SCH (06:03)
[2019-04-28 08:03] LABS: INR 2.11; PROTIME 24.2 Seconds (11.0-16.0)
[2019-04-28] MEDS: DUONEB (A & A) INH SCH (09:04)
[2019-04-28] MEDS: SPIRIVA INH SCH (09:05)
[2019-04-28] MEDS: SYMBICORT 80/4.5 MICROGM INHALER INH SCH (09:05)
[2019-04-28] MEDS: MIRALAX PO SCH (09:16)
[2019-04-28 15:57] VITALS: BP 124/50
--- NOTE | 2019-04-29 09:09 | DISCHARGE SUMMARY ---
ADMISSION DATE: 04/21/2019 DISCHARGE DATE: 04/28/2019 DISCHARGE DIAGNOSES: 1. Partial small bowel obstruction. 2. Coagulopathy due to warfarin. 3. Mechanical valve, I believe a mitral valve. 4. Chronic obstructive pulmonary disease compensation. 5. Chronic weakness, debilitation. CONSULTATIONS: Miguel Angel Greco MD, General Surgery. PROCEDURES: None. This is an 88-year-old male, who had been recently admitted for CHF exacerbation, came in with abdominal pain, no bowel movement. He does have some altered mentation, but he did not appear to be confused this admission. In any case, he was evaluated, made n.p.o. I do not think an NG had been placed. In any case, he stabilized. He was hydrated gently. He was placed on a heparin drip because he has a mechanical aortic valve, and he has aortic stenosis which was noted last time but was not deemed to be a surgical candidate. Slowly, he improved. He had bowel movements. He does have a colostomy, and he started having bowel movements without difficulty. His diet was advanced, but he was unable to get up and around very well but worked with PT and he eventually was able to ambulate with a walker. He was felt stable for discharge on the , 94% on room air. An INR was still subtherapeutic 2.1. We had to adjust his INR because I think it had gotten up to 3.7 on his usual 2 mg of Coumadin, but we will resume his other 2 mg to get his INR up to normal. DISCHARGE MEDICATIONS: Warfarin 2 mg at bedtime, ferrous sulfate 325 at bedtime, Seroquel 25 at bedtime, BuSpar 15 b.i.d., doxazosin 2 daily, Pepcid 20 b.i.d., Lipitor 40 daily, ProAir q.6, Singulair 10 daily, Spiriva 18 mcg daily, B12 1000 daily, MiraLAX 17 daily, Requip 4 at bedtime, Symbicort 2 b.i.d., vitamin D3 1000 units daily. DISCHARGE CONDITION: Stable. FOLLOWUP: With his PCP in 1 week. He needs a PT/INR in 48 hours just to make sure his INR has come up to therapeutic. cc: Chris Rivera MD
== END 2019-04-28 16:47 | disposition home health service (06) | DRG 389 ==
LOC: SUPCPDRO → ED 17:20 → SUATTDRO 04-21 00:07 → 4N 04-21 00:07
PROVIDERS: ATTEND Internal Medicine